=== PATIENT | female | born 1935 | race Caucasian/White ===

== ENCOUNTER 2016-05-06 21:28 | Emergency (ER) | payer MEDICARE, BC, OTHER ==
[2016-05-06] MEDS ORDERED: METOCLOPRAMIDE INJ 10MG/2ML VIAL (J2765) As Ordered ONE (22:38)
[2016-05-06 22:41] LABS: MEAN CORPUSCULAR HEMOGLOBIN 28.9 pg (27.0-33.0); MEAN CORPUSCULAR HGB CONC 34.4 g/dl (32.0-36.5); RED CELL DISTRIBUTION WIDTH 12.3 % (11.5-14.5); WHITE BLOOD COUNT 5.5 K/mm3 (4.0-10.0)
[2016-05-06 22:57] LABS: ALBUMIN 3.4 GM/DL (3.2-5.2); ALBUMIN/GLOBULIN RATIO 1.06 (1.00-1.93); ALKALINE PHOSPHATASE 88 U/L (45-117); ALT/SGPT 14 U/L (12-78); ANION GAP 11 MEQ/L (8-16); AST/SGOT 17 U/L (15-37); BILIRUBIN,DIRECT 0.1 MG/DL (0.0-0.2); BILIRUBIN,TOTAL 0.5 MG/DL (0.2-1.0); BLOOD UREA NITROGEN 9 MG/DL (7-18); CALCIUM LEVEL 8.9 MG/DL (8.8-10.2); CARBON DIOXIDE LEVEL 27 MEQ/L (21-32); CHLORIDE LEVEL 88 MEQ/L (98-107); CREATININE FOR GFR 0.75 MG/DL (0.55-1.02); GLOMERULAR FILTRATION RATE > 60.0 (>32); GLUCOSE, FASTING 101 MG/DL (83-110); POTASSIUM SERUM 3.7 MEQ/L (3.5-5.1); SODIUM LEVEL 126 MEQ/L (136-145); TOTAL PROTEIN 6.6 GM/DL (6.4-8.2)
[2016-05-06] MEDS ORDERED: MOXIFLOXACIN 400 MG TAB As Ordered ONE (23:39)
[2016-05-06] MEDS ORDERED: BENZONATATE 100 MG CAP As Ordered ONE (23:40)
--- NOTE | 2016-05-07 00:31 | EDDOCDS ---
Nurse's Notes [facility] Name: Wilma Waters Age: 80 yrs Sex: Female : 1935 Arrival Date: 05/06/2016 Time: 21:28 Bed 7 Private MD: Akiko Paris Diagnosis: Bronchitis, not specified as acute or chronic;Hypo-osmolality and hyponatremia Presentation: 05/06 21:38 Presenting complaint: Patient states: has had diarrhea for less than a week - congested kcs cough and today vomiting. Mother states: s Urgent care this am and diagnosed with Bronchitis - started on Augmentin - has only had one dose - now can't keep fluids down. states: as seen at. Adult Sepsis Screening: The patient does not have new or worsening altered mentation. Patient has a respiratory rate of greater than or equal to 22 (1 point). Systolic blood pressure is greater than 100. Patient has a qSOFA score of 0- Negative Sepsis Screen. Patient has cough and/or SOB- Positive Sepsis Screen. Suicide/Homicide risk assessment- the patient denies having any suicidal and/or homicidal ideations and does not present with any other emotional, behavioral or mental health complaints. Status: Patient is not a staff services manager or dependent. Transition of care: patient was not received from another setting of care. 21:38 Acuity: BHUPINDER Level 3 kcs 21:38 Method Of Arrival: Walkin/Carried/Asstd kcs Triage Assessment: 21:46 General: Appears ill, well developed, well nourished, well groomed, Behavior is kcs cooperative, pleasant. Pain: Denies pain. The patient is triaged at the bedside. See Assessment in Nurses Notes section of ED record. Neurological: Level of Consciousness is awake, alert. Respiratory: Airway is patent Respiratory effort is even, unlabored, Respiratory pattern is regular, symmetrical. Derm: Skin is intact, is fragile, Skin is dry, Skin is normal. Historical: - Allergies: No known drug Allergies; - Home Meds: 1. Augmentin 875-125 mg Oral tab 1 tab every 12 hours 2. Zofran (as hydrochloride) 4 mg oral tab every 8 hours took 2 at 1900 3. lisinopril 10 mg Oral tab 1 tab once daily 4. ibuprofen 600 mg Oral tab 1 tab every 6 hours this am 5. Vytorin 10-20 10-20 mg oral tab 1 tab once daily 6. Advair Diskus 250-50 mcg/dose Inhl dsdv 1 puff 2 times per day 7. Albuterol Inhl 2 puffs every 4 hours 8. aspirin 81 mg Oral tab 1 tab once daily 9. Vitamin D Oral 5000 unit daily 10. calcium 600 plus Vitamin D 400 daily - PMHx: Hypertension; Hypercholesterolemia; Diverticulitis; Osteoporosis; - PSHx: Cataract Surgery- Bilateral; Hysterectomy; Cholecystectomy; - Social history: Smoking status: Patient states was never smoker of tobacco. No barriers to communication noted, The patient speaks fluent Bahamian. - Family history: Not pertinent. - : The pt / caregiver states he / she is not on anticoagulants. Home medication list is obtained from the patient. - Exposure Risk Screening:: None identified. Screenin:48 Screening information is obtained from the patient. Fall risk: At risk due to prior kcs history of falls, The following interventions are performed due to a positive Fall Risk Screen: Fall Risk is added to Special Handling on the patient Summary Screen. A Fall Risk Bracelet was applied to the patient. Side Rails are placed in the up position. A Call Sanchez is given with instruction to call for help when getting out of bed. Fall Alert bracelet is placed on the patient. Assistance ADL's: requires no assistance with activities of daily living. Abuse/DV Screen: The patient / caregiver reports he/she is: not in a situation that causes fear, pain or injury. Nutritional screening: No deficits noted. Advance Directives: Currently, there is a health care proxy, daughter - Dayanara Oro. There is an active DNR order but there is no copy available at this time. home support is adequate. Assessment: 22:20 General: Appears in no apparent distress, comfortable, Behavior is appropriate for age, ttb cooperative, pleasant. Pain: Denies pain. Neurological: Level of Consciousness is awake, alert, Oriented to person, place, time, Moves all extremities. Speech is normal, Facial symmetry appears normal. Cardiovascular: Heart tones S1 S2 present Chest pain is denied. Respiratory: Airway is patent Respiratory effort is even, unlabored, Respiratory pattern is regular, symmetrical, Breath sounds with rhonchi expiratory in left posterior lower lobe, right posterior middle lobe and right posterior lower lobe Reports cough that is non-productive, the patient has mild shortness of breath. GI: Abdomen is non- distended Bowel sounds present X 4 quads. Abd is soft X 4 quads Reports diarrhea, nausea, vomiting. Derm: No deficits noted. Skin is normal. Injury Description: No known injury. 22:43 Reassessment: Patient appears in no apparent distress at this time. pt continues to ttb rest on stretcher. Labs sent per orders. Family at bedside. NAD noted. IVF's infusing. Report given to next RNYasmine to continue care at this time.. 23:35 General: Appears in no apparent distress, comfortable, Behavior is appropriate for age, kc3 cooperative. Pain: Denies pain. Neurological: Level of Consciousness is awake, alert, Oriented to person, place, time. Respiratory: Respiratory effort is even, unlabored. Derm: Skin is pink, warm & dry. 05/07 00:28 General: Appears in no apparent distress, comfortable, Behavior is appropriate for age, kc3 cooperative. Pain: Denies pain. Neurological: Level of Consciousness is awake, alert, Oriented to person, place, time. Respiratory: Respiratory effort is even, unlabored. Derm: Skin is pink, warm & dry. Vital Signs: 05/06 21:30 BP 203 / 80; Pulse 63; Resp 18; Temp 98.4(O); Pulse Ox 98% on R/A; Weight 74.84 kg (R); elp Height 4 ft. 11 in. (149.86 cm) (R); 23:20 BP 188 / 77; Pulse 63; Resp 20; Pulse Ox 96% on R/A; Pain 0/10; kc3 05/07 00:28 BP 196 / 87; Pulse 70; Resp 20; Temp 98.7(O); Pulse Ox 96% on R/A; Pain 0/10; kc3 05/06 21:30 Body Mass Index 33.33 (74.84 kg, 149.86 cm) elp 00:28 Provider aware of BP at discharge and approved for discharge. Pt to take BP medication kc3 at home. Vitals: 05/06 21:30 Log In Time: May 06, 2016 at 21:28. [facility] ED Course: 21:30 Patient visited by Cherry Rice PCA. elp 21:30 Akiko Paris is Private Physician. elp 21:30 Patient moved to Waiting elp 21:32 Patient visited by Cherry Riec PCA. elp 21:32 Patient moved to Pre RCE elp 21:32 Patient moved to 7 rs3 21:40 Triage Initiated kcs 22:20 The patient / caregiver is instructed regarding the plan of care and ED course. ttb Accompanied by Family Member, Patient has correct armband on for positive identification. Placed in gown. Bed in low position. Call light in reach. 22:20 Inserted peripheral IV: 20gauge IV in left antecubital area and blood collected. ttb Patient tolerated the procedure well. Labs drawn. (by ED staff). 22:22 [facility] ke 22:22 Patient visited by Negrito Apple FNP. ke 22:22 Patient visited by Negrito Apple FNP. ke 22:22 Patient visited by Calista Brush RN. ttb 22:36 BMP Sent. sls1 22:36 CBC Sent. sls1 22:36 BNP Sent. sls1 22:36 Lipase Sent. sls1 22:36 Liver Profile Sent. sls1 22:39 [facility] Payment Agreement was scanned into [employer] and attached to record. ks16 22:44 Patient visited by Calista Brush, NICCI. ttb 23:03 Patient moved to Radiology kenneth 23:04 Patient moved to 7 kenneth 23:26 Patient visited by Negrito Apple FNP. ke 23:39 Akiko Paris is Referral Physician. ke 05/07 00:29 Discontinued IV lock intact, bleeding controlled, pressure dressing applied, No kc3 redness/swelling at site. No procedures done that require assistance. Administered Medications: 05/06 22:30 Drug: NS 0.9% 1000 ml [sodium chloride 0.9 % intravenous solution] Route: IV; Rate: ttb bolus; Site: left antecubital; 22:40 Drug: Albuterol 2.5 mg [albuterol sulfate 2.5 mg/0.5 mL solution for nebulization (0.5 rs5 mL)] Route: Nebulizer; 22:40 Drug: Albuterol-Ipratropium 3 ml [ipratropium-albuterol 0.5 mg-3 mg(2.5 mg base)/3 mL rs5 nebulization soln (3 mL)] Route: Inhalation; 22:43 Drug: Metoclopramide 10 mg [metoclopramide 5 mg/mL injection solution] Route: IV; Rate: ttb 40 mg/hr; Infused Over: 15 mins; Site: left antecubital; Delivery: Syringe pump; 23:44 Drug: Moxifloxacin 400 mg [moxifloxacin 400 mg tablet (1 tabs)] Route: PO; kc3 23:44 Drug: Tessalon 200 mg Route: PO; kc3 RT: 22:46 Initial Med Neb Given as ordered Patient was instructed and evaluated on procedure rs5 Patient tolerated procedure well without adverse effect. Respiratory: Airway is patent Respiratory effort is even, unlabored, Respiratory pattern is regular symmetrical, Breath sounds with crackles bilaterally. Breath sounds with rhonchi Reports cough that is productive. Order Results: Lab Order: CBC; SPEC'M 05/06/16 22:19 Test: WHITE BLOOD COUNT; Value: 5.5; Range: 4.0-10.0; Units: K/mm3; Status: F Test: RED BLOOD COUNT; Value: 4.47; Range: 4.00-5.40; Units: M/mm3; Status: F Test: HEMOGLOBIN; Value: 12.9; Range: 12.0-16.0; Units: g/dl; Status: F Test: HEMATOCRIT; Value: 37.5; Range: 36.0-47.0; Units: %; Status: F Test: MEAN CORPUSCULAR VOLUME; Value: 84.0; Range: 80.0-96.0; Units: fl; Status: F Test: MEAN CORPUSCULAR HEMOGLOBIN; Value: 28.9; Range: 27.0-33.0; Units: pg; Status: F Test: MEAN CORPUSCULAR HGB CONC; Value: 34.4; Range: 32.0-36.5; Units: g/dl; Status: F Test: RED CELL DISTRIBUTION WIDTH; Value: 12.3; Range: 11.5-14.5; Units: %; Status: F Test: PLATELET COUNT, AUTOMATED; Value: 222; Range: 150-450; Units: k/mm3; Status: F Lab Order: BMP; SPEC'M 05/06/16 22:19 Test: GLUCOSE, FASTING; Value: 101; Range: 83-110; Units: MG/DL; Status: F Test: BLOOD UREA NITROGEN; Value: 9; Range: 7-18; Units: MG/DL; Status: F Test: CREATININE FOR GFR; Value: 0.75; Range: 0.55-1.02; Units: MG/DL; Status: F Test: GLOMERULAR FILTRATION RATE; Value: > 60.0; Range: >32; Status: F Test: SODIUM LEVEL; Value: 126; Range: 136-145; Abnormal: Below low normal; Units: MEQ/L; Status: F Test: POTASSIUM SERUM; Value: 3.7; Range: 3.5-5.1; Units: MEQ/L; Status: F Test: CHLORIDE LEVEL; Value: 88; Range: 98-107; Abnormal: Below low normal; Units: MEQ/L; Status: F Test: CARBON DIOXIDE LEVEL; Value: 27; Range: 21-32; Units: MEQ/L; Status: F Test: ANION GAP; Value: 11; Range: 8-16; Units: MEQ/L; Status: F Test: CALCIUM LEVEL; Value: 8.9; Range: 8.8-10.2; Units: MG/DL; Status: F Test Note: ; Units are mL/min/1.73 m2 Chronic Kidney Disease Staging per NKF: Stage I & II GFR >=60 Normal to Mildly Decreased Stage III GFR 30-59 Moderately Decreased Stage IV GFR 15-29 Severely Decreased Stage V GFR <15 Very Little GFR Left ESRD GFR <15 on 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 FIELD 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 Lab Order: BNP; SPEC'M 05/06/16 22:05 Test: BRAIN NATRIURETIC PEPTIDE; Value: 230; Range: <100; Abnormal: Above high normal; Units: PG/ML; Status: F Lab Order: Lipase; SPEC'M 05/06/16 22:19 Test: LIPASE; Value: 102; Range: 73-393; Units: U/L; Status: F Lab Order: Liver Profile; SPEC'M 05/06/16 22:19 Test: AST/SGOT; Value: 17; Range: 15-37; Units: U/L; Status: F Test: ALT/SGPT; Value: 14; Range: 12-78; Units: U/L; Status: F Test: ALKALINE PHOSPHATASE; Value: 88; Range: 45-117; Units: U/L; Status: F Test: BILIRUBIN,TOTAL; Value: 0.5; Range: 0.2-1.0; Units: MG/DL; Status: F Test: BILIRUBIN,DIRECT; Value: 0.1; Range: 0.0-0.2; Units: MG/DL; Status: F Test: TOTAL PROTEIN; Value: 6.6; Range: 6.4-8.2; Units: GM/DL; Status: F Test: ALBUMIN; Value: 3.4; Range: 3.2-5.2; Units: GM/DL; Status: F Test: ALBUMIN/GLOBULIN RATIO; Value: 1.06; Range: 1.00-1.93; Status: F Outcome: 23:40 Discharge ordered by Provider. nuvia 01 00:29 Discharge Assessment: Patient awake, alert and oriented x 3. No cognitive and/or kc3 functional deficits noted. Patient verbalized understanding of disposition instructions. patient administered narcotics - no. The following High Risk Discharge criteria are identified: None. Discharged to home via wheelchair, with family. Condition: stable. Discharge instructions given to patient, Instructed on discharge instructions, follow up and referral plans. medication usage, Demonstrated understanding of instructions, medications, Pt was receptive of discharge instructions/ teaching. Prescriptions given X 2. No special radiology studies were completed. Property :Personal belongings accompany Pt. 00:30 Patient left the ED. kc3 Signatures: Elda Oro, RN RN Driss Wallace Karl, RESIDENTIAL TECH RESIDENTIAL TECH Belkis Davis RN RN rs3 Sandy Tobin RN RN sls1 Anthony Garcia,RT RT rs5 Calista Brush RN RN ttb Cherry Rice, ELECTRIC BRAIN WAVE EQUIPMENT MECHANIC ELECTRIC BRAIN WAVE EQUIPMENT MECHANIC elp Leticia Chacko RN RN kc3 Juliet Bond, Reg Reg ks16 Corrections: (The following items were deleted from the chart) 00:30 00:28 BP 196 / 87; Pulse 70bpm; Resp 20bpm; Pulse Ox 96% RA; Temp 98.7F Oral; Pain kc3 0/10; kc3 MTDD
--- NOTE | 2016-05-07 00:31 | EDDOCDS ---
Physician Documentation [facility] Name: Wilma Waters Age: 80 yrs Sex: Female : 1935 Arrival Date: 05/06/2016 Time: 21:28 Bed 7 Private MD: Akiko Paris Disposition: 05/06/16 23:40 Discharged to Home/Self Care. Impression: Bronchitis, not specified as acute or chronic, Hypo-osmolality and hyponatremia. - Condition is Stable. - Discharge Instructions: Acute Bronchitis, Hyponatremia. - Prescriptions for Moxifloxacin 400 mg Oral Tablet - take 1 tablet by ORAL route once daily; 5 tablet. benzonatate 200 mg Oral Capsule - take 1 capsule by ORAL route 3 times per day As needed; 30 capsule. - Medication Reconciliation, Local Pharmacy Hours form. - Follow up: Akiko Paris; When: 4 - 5 days; Reason: Recheck today's complaints, Continuance of care. - Problem is an ongoing problem. - Symptoms are unchanged. Historical: - Allergies: No known drug Allergies; - Home Meds: 1. Augmentin 875-125 mg Oral tab 1 tab every 12 hours 2. Zofran (as hydrochloride) 4 mg oral tab every 8 hours took 2 at 1900 3. lisinopril 10 mg Oral tab 1 tab once daily 4. ibuprofen 600 mg Oral tab 1 tab every 6 hours this am 5. Vytorin 10-20 10-20 mg oral tab 1 tab once daily 6. Advair Diskus 250-50 mcg/dose Inhl dsdv 1 puff 2 times per day 7. Albuterol Inhl 2 puffs every 4 hours 8. aspirin 81 mg Oral tab 1 tab once daily 9. Vitamin D Oral 5000 unit daily 10. calcium 600 plus Vitamin D 400 daily - PMHx: Hypertension; Hypercholesterolemia; Diverticulitis; Osteoporosis; - PSHx: Cataract Surgery- Bilateral; Hysterectomy; Cholecystectomy; - Social history: Smoking status: Patient states was never smoker of tobacco. No barriers to communication noted, The patient speaks fluent Azerbaijani. - Family history: Not pertinent. - : The pt / caregiver states he / she is not on anticoagulants. Home medication list is obtained from the patient. - Exposure Risk Screening:: None identified. Vital Signs: 05/06 21:30 BP 203 / 80; Pulse 63; Resp 18; Temp 98.4(O); Pulse Ox 98% on R/A; Weight 74.84 kg / elp 164.99 lbs (R); Height 4 ft. 11 in. (149.86 cm) (R); 23:20 BP 188 / 77; Pulse 63; Resp 20; Pulse Ox 96% on R/A; Pain 0/10; kc3 05/07 00:28 BP 196 / 87; Pulse 70; Resp 20; Temp 98.7(O); Pulse Ox 96% on R/A; Pain 0/10; kc3 05/06 21:30 Body Mass Index 33.33 (74.84 kg, 149.86 cm) elp 00:28 Provider aware of BP at discharge and approved for discharge. Pt to take BP medication kc3 at home. MDM: 05/06 22:31 IV Saline Lock ordered. ke 22:31 NS 0.9% 1000 ml IV at bolus once ordered. ke 22:31 Metoclopramide 10 mg IV at 40 mg/hr once over 15 mins ordered. ke 22:31 Albuterol 2.5 mg Nebulizer once ordered. ke 22:31 Albuterol-Ipratropium 3 ml Inhalation once ordered. ke 22:31 Call Respiratory ordered. ke 22:31 Call Respiratory complete. ar3 22:33 CBC Ordered. EDMS 22:33 BMP Ordered. EDMS 22:33 BNP Ordered. EDMS 22:33 Lipase Ordered. EDMS 22:33 Liver Profile Ordered. EDMS 22:33 Chest, 2 View (pa\E\lat) Ordered. EDMS 22:38 Financial registration complete. ks16 22:39 [facility] Payment Agreement was scanned into [employer] and attached to record. ks16 23:26 BMP Reviewed. ke 23:26 BNP Reviewed. ke 23:26 CBC Reviewed. ke 23:26 Lipase Reviewed. ke 23:26 Liver Profile Reviewed. ke 23:36 Moxifloxacin 400 mg PO once ordered. ke 23:36 Tessalon 200 mg PO once ordered. ke Administered Medications: 22:30 Drug: NS 0.9% 1000 ml [sodium chloride 0.9 % intravenous solution] Route: IV; Rate: ttb bolus; Site: left antecubital; 22:40 Drug: Albuterol 2.5 mg [albuterol sulfate 2.5 mg/0.5 mL solution for nebulization (0.5 rs5 mL)] Route: Nebulizer; 22:40 Drug: Albuterol-Ipratropium 3 ml [ipratropium-albuterol 0.5 mg-3 mg(2.5 mg base)/3 mL rs5 nebulization soln (3 mL)] Route: Inhalation; 22:43 Drug: Metoclopramide 10 mg [metoclopramide 5 mg/mL injection solution] Route: IV; Rate: ttb 40 mg/hr; Infused Over: 15 mins; Site: left antecubital; Delivery: Syringe pump; 23:44 Drug: Moxifloxacin 400 mg [moxifloxacin 400 mg tablet (1 tabs)] Route: PO; kc3 23:44 Drug: Tessalon 200 mg Route: PO; kc3 Signatures: Dispatcher [employer] EDElda Lee, RN RN kcs Negrito Apple, CHEMICAL RECLAMATION EQUIPMENT OPERATOR CHEMICAL RECLAMATION EQUIPMENT OPERATOR Latrice Menjivar, PUBLIC HEALTH SERVICE OFFICER PUBLIC HEALTH SERVICE OFFICER fady3 Calista Brush RN RN ttb Crane, Kelsi, RN RN kc3 Juliet Bond, Reg Reg ks16 Anthony Garcia RT rs5 The chart was reviewed and I authenticate all verbal orders and agree with the evaluation and treatment provided.Attachments: 22:39 [facility] Payment Agreement ks16 MTDD
--- NOTE | 2016-05-07 12:17 | REP ---
CHEST X-RAY: Two views. HISTORY: Cough. Comparison chest x-ray July 05, 2008. FINDINGS: The lungs are symmetrically aerated. Pleural angles are sharp. No infiltrate is seen. Heart size is normal. Pulmonary vasculature is not increased. No significant bony abnormality is noted. There are clips in the upper abdomen consistent with a previous cholecystectomy. IMPRESSION: No active disease. Signed by Gael Sharma MD 05/07/2016 12:18 P
--- NOTE | 2016-05-07 17:09 | EDDOCDS ---
Nurse's Notes [facility] Name: Wilma Waters Age: 80 yrs Sex: Female : 1935 Arrival Date: 05/06/2016 Time: 21:28 Bed 7 Private MD: Akiko Paris Diagnosis: Bronchitis, not specified as acute or chronic;Hypo-osmolality and hyponatremia Presentation: 05/06 21:38 Presenting complaint: Patient states: has had diarrhea for less than a week - congested kcs cough and today vomiting. Mother states: s Urgent care this am and diagnosed with Bronchitis - started on Augmentin - has only had one dose - now can't keep fluids down. states: as seen at. Adult Sepsis Screening: The patient does not have new or worsening altered mentation. Patient has a respiratory rate of greater than or equal to 22 (1 point). Systolic blood pressure is greater than 100. Patient has a qSOFA score of 0- Negative Sepsis Screen. Patient has cough and/or SOB- Positive Sepsis Screen. Suicide/Homicide risk assessment- the patient denies having any suicidal and/or homicidal ideations and does not present with any other emotional, behavioral or mental health complaints. 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 Transition of care: patient was not received from another setting of care. 21:38 Acuity: BHUPINDER Level 3 kcs 21:38 Method Of Arrival: Walkin/Carried/Asstd kcs Triage Assessment: 21:46 General: Appears ill, well developed, well nourished, well groomed, Behavior is kcs cooperative, pleasant. Pain: Denies pain. The patient is triaged at the bedside. See Assessment in Nurses Notes section of ED record. Neurological: Level of Consciousness is awake, alert. Respiratory: Airway is patent Respiratory effort is even, unlabored, Respiratory pattern is regular, symmetrical. Derm: Skin is intact, is fragile, Skin is dry, Skin is normal. Historical: - Allergies: No known drug Allergies; - Home Meds: 1. Augmentin 875-125 mg Oral tab 1 tab every 12 hours 2. Zofran (as hydrochloride) 4 mg oral tab every 8 hours took 2 at 1900 3. lisinopril 10 mg Oral tab 1 tab once daily 4. ibuprofen 600 mg Oral tab 1 tab every 6 hours this am 5. Vytorin 10-20 10-20 mg oral tab 1 tab once daily 6. Advair Diskus 250-50 mcg/dose Inhl dsdv 1 puff 2 times per day 7. Albuterol Inhl 2 puffs every 4 hours 8. aspirin 81 mg Oral tab 1 tab once daily 9. Vitamin D Oral 5000 unit daily 10. calcium 600 plus Vitamin D 400 daily - PMHx: Hypertension; Hypercholesterolemia; Diverticulitis; Osteoporosis; - PSHx: Cataract Surgery- Bilateral; Hysterectomy; Cholecystectomy; - Social history: Smoking status: Patient states was never smoker of tobacco. No barriers to communication noted, The patient speaks fluent Kyrgyz. - Family history: Not pertinent. - : The pt / caregiver states he / she is not on anticoagulants. Home medication list is obtained from the patient. - Exposure Risk Screening:: None identified. Screenin:48 Screening information is obtained from the patient. Fall risk: At risk due to prior kcs history of falls, The following interventions are performed due to a positive Fall Risk Screen: Fall Risk is added to Special Handling on the patient Summary Screen. A Fall Risk Bracelet was applied to the patient. Side Rails are placed in the up position. A Call Sanchez is given with instruction to call for help when getting out of bed. Fall Alert bracelet is placed on the patient. Assistance ADL's: requires no assistance with activities of daily living. Abuse/DV Screen: The patient / caregiver reports he/she is: not in a situation that causes fear, pain or injury. Nutritional screening: No deficits noted. Advance Directives: Currently, there is a health care proxy, daughter - Dayanara Oro. There is an active DNR order but there is no copy available at this time. home support is adequate. Assessment: 22:20 General: Appears in no apparent distress, comfortable, Behavior is appropriate for age, ttb cooperative, pleasant. Pain: Denies pain. Neurological: Level of Consciousness is awake, alert, Oriented to person, place, time, Moves all extremities. Speech is normal, Facial symmetry appears normal. Cardiovascular: Heart tones S1 S2 present Chest pain is denied. Respiratory: Airway is patent Respiratory effort is even, unlabored, Respiratory pattern is regular, symmetrical, Breath sounds with rhonchi expiratory in left posterior lower lobe, right posterior middle lobe and right posterior lower lobe Reports cough that is non-productive, the patient has mild shortness of breath. GI: Abdomen is non- distended Bowel sounds present X 4 quads. Abd is soft X 4 quads Reports diarrhea, nausea, vomiting. Derm: No deficits noted. Skin is normal. Injury Description: No known injury. 22:43 Reassessment: Patient appears in no apparent distress at this time. pt continues to ttb rest on stretcher. Labs sent per orders. Family at bedside. NAD noted. IVF's infusing. Report given to next RNYasmine to continue care at this time.. 23:35 General: Appears in no apparent distress, comfortable, Behavior is appropriate for age, kc3 cooperative. Pain: Denies pain. Neurological: Level of Consciousness is awake, alert, Oriented to person, place, time. Respiratory: Respiratory effort is even, unlabored. Derm: Skin is pink, warm & dry. 05/07 00:28 General: Appears in no apparent distress, comfortable, Behavior is appropriate for age, kc3 cooperative. Pain: Denies pain. Neurological: Level of Consciousness is awake, alert, Oriented to person, place, time. Respiratory: Respiratory effort is even, unlabored. Derm: Skin is pink, warm & dry. Vital Signs: 05/06 21:30 BP 203 / 80; Pulse 63; Resp 18; Temp 98.4(O); Pulse Ox 98% on R/A; Weight 74.84 kg (R); elp Height 4 ft. 11 in. (149.86 cm) (R); 23:20 BP 188 / 77; Pulse 63; Resp 20; Pulse Ox 96% on R/A; Pain 0/10; kc3 05/07 00:28 BP 196 / 87; Pulse 70; Resp 20; Temp 98.7(O); Pulse Ox 96% on R/A; Pain 0/10; kc3 05/06 21:30 Body Mass Index 33.33 (74.84 kg, 149.86 cm) elp 00:28 Provider aware of BP at discharge and approved for discharge. Pt to take BP medication kc3 at home. Vitals: 05/06 21:30 Log In Time: May 06, 2016 at 21:28[facility] ED Course: 21:30 Patient visited by Cherry Rice PCA. elp 21:30 Akiko Paris is Private Physician. elp 21:30 Patient moved to Waiting elp 21:32 Patient visited by Cherry Rice PCA. elp 21:32 Patient moved to Pre RCE elp 21:32 Patient moved to 7 rs3 21:40 Triage Initiated kcs 22:20 The patient / caregiver is instructed regarding the plan of care and ED course. ttb Accompanied by Family Member, Patient has correct armband on for positive identification. Placed in gown. Bed in low position. Call light in reach. 22:20 Inserted peripheral IV: 20gauge IV in left antecubital area and blood collected. ttb Patient tolerated the procedure well. Labs drawn. (by ED staff). 22:22 [facility] ke 22:22 Patient visited by Negrito Apple FNP. nuvia 22:22 Patient visited by Negrito Apple FNP. ke 22:22 Patient visited by Calista Brush RN. ttb 22:36 BMP Sent. sls1 22:36 CBC Sent. sls1 22:36 BNP Sent. sls1 22:36 Lipase Sent. sls1 22:36 Liver Profile Sent. sls1 22:39 [facility] [place] [facility] Payment Agreement was scanned into [email or web address] and attached to record. ks16 22:44 Patient visited by Calista Brush, NICCI. ttb 23:03 Patient moved to Radiology kenneth 23:04 Patient moved to 7 kenneth 23:26 Patient visited by Negrito Apple FNP. ke 23:39 Akiko Paris is Referral Physician. ke 05/07 00:29 Discontinued IV lock intact, bleeding controlled, pressure dressing applied, No kc3 redness/swelling at site. No procedures done that require assistance. 10:48 T-Sheet-- Draft Copy was scanned into [email or web address] and attached to record. gb 12:27 Chest, 2 View (pa\E\lat) Returned. EDMS 17:07 Mary Sierra, NICCI is Primary Nurse. ke Administered Medications: 05/06 22:30 Drug: NS 0.9% 1000 ml [sodium chloride 0.9 % intravenous solution] Route: IV; Rate: ttb bolus; Site: left antecubital; 22:40 Drug: Albuterol 2.5 mg [albuterol sulfate 2.5 mg/0.5 mL solution for nebulization (0.5 rs5 mL)] Route: Nebulizer; 22:40 Drug: Albuterol-Ipratropium 3 ml [ipratropium-albuterol 0.5 mg-3 mg(2.5 mg base)/3 mL rs5 nebulization soln (3 mL)] Route: Inhalation; 22:43 Drug: Metoclopramide 10 mg [metoclopramide 5 mg/mL injection solution] Route: IV; Rate: ttb 40 mg/hr; Infused Over: 15 mins; Site: left antecubital; Delivery: Syringe pump; 23:44 Drug: Moxifloxacin 400 mg [moxifloxacin 400 mg tablet (1 tabs)] Route: PO; kc3 23:44 Drug: Tessalon 200 mg Route: PO; kc3 RT: 22:46 Initial Med Neb Given as ordered Patient was instructed and evaluated on procedure rs5 Patient tolerated procedure well without adverse effect. Respiratory: Airway is patent Respiratory effort is even, unlabored, Respiratory pattern is regular symmetrical, Breath sounds with crackles bilaterally. Breath sounds with rhonchi Reports cough that is productive. Order Results: Lab Order: CBC; SPEC'M 05/06/16 22:19 Test: WHITE BLOOD COUNT; Value: 5.5; Range: 4.0-10.0; Units: K/mm3; Status: F Test: RED BLOOD COUNT; Value: 4.47; Range: 4.00-5.40; Units: M/mm3; Status: F Test: HEMOGLOBIN; Value: 12.9; Range: 12.0-16.0; Units: g/dl; Status: F Test: HEMATOCRIT; Value: 37.5; Range: 36.0-47.0; Units: %; Status: F Test: MEAN CORPUSCULAR VOLUME; Value: 84.0; Range: 80.0-96.0; Units: fl; Status: F Test: MEAN CORPUSCULAR HEMOGLOBIN; Value: 28.9; Range: 27.0-33.0; Units: pg; Status: F Test: MEAN CORPUSCULAR HGB CONC; Value: 34.4; Range: 32.0-36.5; Units: g/dl; Status: F Test: RED CELL DISTRIBUTION WIDTH; Value: 12.3; Range: 11.5-14.5; Units: %; Status: F Test: PLATELET COUNT, AUTOMATED; Value: 222; Range: 150-450; Units: k/mm3; Status: F Lab Order: BMP; SPEC'05/06/16 22:19 Test: GLUCOSE, FASTING; Value: 101; Range: 83-110; Units: MG/DL; Status: F Test: BLOOD UREA NITROGEN; Value: 9; Range: 7-18; Units: MG/DL; Status: F Test: CREATININE FOR GFR; Value: 0.75; Range: 0.55-1.02; Units: MG/DL; Status: F Test: GLOMERULAR FILTRATION RATE; Value: > 60.0; Range: >32; Status: F Test: SODIUM LEVEL; Value: 126; Range: 136-145; Abnormal: Below low normal; Units: MEQ/L; Status: F Test: POTASSIUM SERUM; Value: 3.7; Range: 3.5-5.1; Units: MEQ/L; Status: F Test: CHLORIDE LEVEL; Value: 88; Range: 98-107; Abnormal: Below low normal; Units: MEQ/L; Status: F Test: CARBON DIOXIDE LEVEL; Value: 27; Range: 21-32; Units: MEQ/L; Status: F Test: ANION GAP; Value: 11; Range: 8-16; Units: MEQ/L; Status: F Test: CALCIUM LEVEL; Value: 8.9; Range: 8.8-10.2; Units: MG/DL; Status: F Test Note: ; Units are mL/min/1.73 m2 Chronic Kidney Disease Staging per NKF: Stage I & II GFR >=60 Normal to Mildly Decreased Stage III GFR 30-59 Moderately Decreased Stage IV GFR 15-29 Severely Decreased Stage V GFR <15 Very Little GFR Left ESRD GFR <15 on SAFETY PIN ASSEMBLING MACHINE OPERATOR Lab Order: BNP; SPEC'05/06/16 22:05 Test: BRAIN NATRIURETIC PEPTIDE; Value: 230; Range: <100; Abnormal: Above high normal; Units: PG/ML; Status: F Lab Order: Lipase; SPEC05/06/16 22:19 Test: LIPASE; Value: 102; Range: 73-393; Units: U/L; Status: F Lab Order: Liver Profile; SPEC'05/06/16 22:19 Test: AST/SGOT; Value: 17; Range: 15-37; Units: U/L; Status: F Test: ALT/SGPT; Value: 14; Range: 12-78; Units: U/L; Status: F Test: ALKALINE PHOSPHATASE; Value: 88; Range: 45-117; Units: U/L; Status: F Test: BILIRUBIN,TOTAL; Value: 0.5; Range: 0.2-1.0; Units: MG/DL; Status: F Test: BILIRUBIN,DIRECT; Value: 0.1; Range: 0.0-0.2; Units: MG/DL; Status: F Test: TOTAL PROTEIN; Value: 6.6; Range: 6.4-8.2; Units: GM/DL; Status: F Test: ALBUMIN; Value: 3.4; Range: 3.2-5.2; Units: GM/DL; Status: F Test: ALBUMIN/GLOBULIN RATIO; Value: 1.06; Range: 1.00-1.93; Status: F Radiology Order: Chest, 2 View (pa\E\lat) Test: Chest, 2 View (pa\E\lat) REASON FOR EXAMINATION: Cough; CHEST X-RAY: Two views.; ; HISTORY: Cough.; ; Comparison chest x-ray July 05, 2008.; ; FINDINGS: The lungs are symmetrically aerated. Pleural angles are sharp. No; infiltrate is seen. Heart size is normal. Pulmonary vasculature is not; increased. No significant bony abnormality is noted. There are clips in the; upper abdomen consistent with a previous cholecystectomy.; ; IMPRESSION: No active disease.; ; ; Signed by; Gael Sharma MD 05/07/2016 12:18 P; Outcome: 23:40 Discharge ordered by Provider. nuvia 05/07 00:29 Discharge Assessment: Patient awake, alert and oriented x 3. No cognitive and/or kc3 functional deficits noted. Patient verbalized understanding of disposition instructions. patient administered narcotics - no. The following High Risk Discharge criteria are identified: None. Discharged to home via wheelchair, with family. Condition: stable. Discharge instructions given to patient, Instructed on discharge instructions, follow up and referral plans. medication usage, Demonstrated understanding of instructions, medications, Pt was receptive of discharge instructions/ teaching. Prescriptions given X 2. No special radiology studies were completed. Property :Personal belongings accompany Pt. 00:30 Patient left the ED. kc3 17:08 Patient left the ED. nuvia Signatures: Dispatcher [employer] Elda Song, RN RN kcs Delphine, Driss kenneth Francheska Obrien, Reg Reg gb Negrito Apple, TOP TILE DECORATOR TOP TILE DECORATOR Belkis Davis RN RN rs3 Sandy Tobin RN RN sls1 Anthony Garcia,RT RT rs5 Calista Brush, NICCI RN ttb Cherry Rice, COUNTY AGENT COUNTY AGENT elp Leticia Chacko RN RN kc3 Juliet Bond, Reg Reg ks16 Corrections: (The following items were deleted from the chart) 00:30 00:28 BP 196 / 87; Pulse 70bpm; Resp 20bpm; Pulse Ox 96% RA; Temp 98.7F Oral; Pain kc3 0/10; kc3 MTDD
--- NOTE | 2016-05-07 17:09 | EDDOCDS ---
Physician Documentation [facility] Name: Wilma Waters Age: 80 yrs Sex: Female : 1935 Arrival Date: 05/06/2016 Time: 21:28 Bed 7 Private MD: Akiko Paris Disposition: 05/06/16 23:40 Discharged to Home/Self Care. Impression: Bronchitis, not specified as acute or chronic, Hypo-osmolality and hyponatremia. - Condition is Stable. - Discharge Instructions: Acute Bronchitis, Hyponatremia. - Prescriptions for Moxifloxacin 400 mg Oral Tablet - take 1 tablet by ORAL route once daily; 5 tablet. benzonatate 200 mg Oral Capsule - take 1 capsule by ORAL route 3 times per day As needed; 30 capsule. Phenergan 25 mg Rectal Suppository - insert 1 suppository by RECTAL route every 6 hours As needed; 12 suppository. - Medication Reconciliation, Local Pharmacy Hours form. - Follow up: Akiko Paris; When: 4 - 5 days; Reason: Recheck today's complaints, Continuance of care. - Problem is an ongoing problem. - Symptoms are unchanged. Historical: - Allergies: No known drug Allergies; - Home Meds: 1. Augmentin 875-125 mg Oral tab 1 tab every 12 hours 2. Zofran (as hydrochloride) 4 mg oral tab every 8 hours took 2 at 1900 3. lisinopril 10 mg Oral tab 1 tab once daily 4. ibuprofen 600 mg Oral tab 1 tab every 6 hours this am 5. Vytorin 10-20 10-20 mg oral tab 1 tab once daily 6. Advair Diskus 250-50 mcg/dose Inhl dsdv 1 puff 2 times per day 7. Albuterol Inhl 2 puffs every 4 hours 8. aspirin 81 mg Oral tab 1 tab once daily 9. Vitamin D Oral 5000 unit daily 10. calcium 600 plus Vitamin D 400 daily - PMHx: Hypertension; Hypercholesterolemia; Diverticulitis; Osteoporosis; - PSHx: Cataract Surgery- Bilateral; Hysterectomy; Cholecystectomy; - Social history: Smoking status: Patient states was never smoker of tobacco. No barriers to communication noted, The patient speaks fluent Irish. - Family history: Not pertinent. - : The pt / caregiver states he / she is not on anticoagulants. Home medication list is obtained from the patient. - Exposure Risk Screening:: None identified. Vital Signs: 05/06 21:30 BP 203 / 80; Pulse 63; Resp 18; Temp 98.4(O); Pulse Ox 98% on R/A; Weight 74.84 kg / elp 164.99 lbs (R); Height 4 ft. 11 in. (149.86 cm) (R); 23:20 BP 188 / 77; Pulse 63; Resp 20; Pulse Ox 96% on R/A; Pain 0/10; kc3 05/07 00:28 BP 196 / 87; Pulse 70; Resp 20; Temp 98.7(O); Pulse Ox 96% on R/A; Pain 0/10; kc3 05/06 21:30 Body Mass Index 33.33 (74.84 kg, 149.86 cm) elp 00:28 Provider aware of BP at discharge and approved for discharge. Pt to take BP medication kc3 at home. MDM: 05/06 22:31 IV Saline Lock ordered. ke 22:31 NS 0.9% 1000 ml IV at bolus once ordered. ke 22:31 Metoclopramide 10 mg IV at 40 mg/hr once over 15 mins ordered. ke 22:31 Albuterol 2.5 mg Nebulizer once ordered. ke 22:31 Albuterol-Ipratropium 3 ml Inhalation once ordered. ke 22:31 Call Respiratory ordered. ke 22:31 Call Respiratory complete. ar3 22:33 CBC Ordered. EDMS 22:33 BMP Ordered. EDMS 22:33 BNP Ordered. EDMS 22:33 Lipase Ordered. EDMS 22:33 Liver Profile Ordered. EDMS 22:33 Chest, 2 View (pa\E\lat) Ordered. EDMS 22:38 Financial registration complete. ks16 22:39 [facility] Payment Agreement was scanned into [employer] and attached to record. ks16 23:26 BMP Reviewed. ke 23:26 BNP Reviewed. ke 23:26 CBC Reviewed. ke 23:26 Lipase Reviewed. ke 23:26 Liver Profile Reviewed. ke 23:36 Moxifloxacin 400 mg PO once ordered. ke 23:36 Tessalon 200 mg PO once ordered. ke 05/07 10:48 T-Sheet-- Draft Copy was scanned into [employer] and attached to record. gb 17:06 ED course: pt with continued c/o nausea. will attempt phenergan pr.does not want admit..ke Administered Medications: 05/06 22:30 Drug: NS 0.9% 1000 ml [sodium chloride 0.9 % intravenous solution] Route: IV; Rate: ttb bolus; Site: left antecubital; 22:40 Drug: Albuterol 2.5 mg [albuterol sulfate 2.5 mg/0.5 mL solution for nebulization (0.5 rs5 mL)] Route: Nebulizer; 22:40 Drug: Albuterol-Ipratropium 3 ml [ipratropium-albuterol 0.5 mg-3 mg(2.5 mg base)/3 mL rs5 nebulization soln (3 mL)] Route: Inhalation; 22:43 Drug: Metoclopramide 10 mg [metoclopramide 5 mg/mL injection solution] Route: IV; Rate: ttb 40 mg/hr; Infused Over: 15 mins; Site: left antecubital; Delivery: Syringe pump; 23:44 Drug: Moxifloxacin 400 mg [moxifloxacin 400 mg tablet (1 tabs)] Route: PO; kc3 23:44 Drug: Tessalon 200 mg Route: PO; kc3 Signatures: Dispatcher [employer] EDElda Lee, RN RN kcs Francheska Obrien, Reg Reg gb Negrito Apple, EDGE BRUSHER EDGE BRUSHER Latrice Menjivar, POLICE AIDE POLICE AIDE ar3 Calista Brush RN RN ttLeticia Montes RN RN kc3 Juliet Bond, Reg Reg ks16 Anthony Garcia RT rs5 The chart was reviewed and I authenticate all verbal orders and agree with the evaluation and treatment provided.Attachments: 22:39 [facility] Payment Agreement ks16 05/07 10:48 T-Sheet-- Draft Copy gb MTDD
--- NOTE | 2016-05-09 18:10 | EDDOCDS ---
Physician Documentation [facility] Name: Wilma Waters Age: 80 yrs Sex: Female : 1935 Arrival Date: 05/06/2016 Time: 21:28 Bed 7 Private MD: Akiko Paris Disposition: 05/06/16 23:40 Discharged to Home/Self Care. Impression: Bronchitis, not specified as acute or chronic, Hypo-osmolality and hyponatremia. - Condition is Stable. - Discharge Instructions: Acute Bronchitis, Hyponatremia. - Prescriptions for Moxifloxacin 400 mg Oral Tablet - take 1 tablet by ORAL route once daily; 5 tablet. benzonatate 200 mg Oral Capsule - take 1 capsule by ORAL route 3 times per day As needed; 30 capsule. Phenergan 25 mg Rectal Suppository - insert 1 suppository by RECTAL route every 6 hours As needed; 12 suppository. - Medication Reconciliation, Local Pharmacy Hours form. - Follow up: Akiko Paris; When: 4 - 5 days; Reason: Recheck today's complaints, Continuance of care. - Problem is an ongoing problem. - Symptoms are unchanged. Historical: - Allergies: No known drug Allergies; - Home Meds: 1. Augmentin 875-125 mg Oral tab 1 tab every 12 hours 2. Zofran (as hydrochloride) 4 mg oral tab every 8 hours took 2 at 1900 3. lisinopril 10 mg Oral tab 1 tab once daily 4. ibuprofen 600 mg Oral tab 1 tab every 6 hours this am 5. Vytorin 10-20 10-20 mg oral tab 1 tab once daily 6. Advair Diskus 250-50 mcg/dose Inhl dsdv 1 puff 2 times per day 7. Albuterol Inhl 2 puffs every 4 hours 8. aspirin 81 mg Oral tab 1 tab once daily 9. Vitamin D Oral 5000 unit daily 10. calcium 600 plus Vitamin D 400 daily - PMHx: Hypertension; Hypercholesterolemia; Diverticulitis; Osteoporosis; - PSHx: Cataract Surgery- Bilateral; Hysterectomy; Cholecystectomy; - Social history: Smoking status: Patient states was never smoker of tobacco. No barriers to communication noted, The patient speaks fluent Irish. - Family history: Not pertinent. - : The pt / caregiver states he / she is not on anticoagulants. Home medication list is obtained from the patient. - Exposure Risk Screening:: None identified. Vital Signs: 05/06 21:30 BP 203 / 80; Pulse 63; Resp 18; Temp 98.4(O); Pulse Ox 98% on R/A; Weight 74.84 kg / elp 164.99 lbs (R); Height 4 ft. 11 in. (149.86 cm) (R); 23:20 BP 188 / 77; Pulse 63; Resp 20; Pulse Ox 96% on R/A; Pain 0/10; kc3 05/07 00:28 BP 196 / 87; Pulse 70; Resp 20; Temp 98.7(O); Pulse Ox 96% on R/A; Pain 0/10; kc3 05/06 21:30 Body Mass Index 33.33 (74.84 kg, 149.86 cm) elp 00:28 Provider aware of BP at discharge and approved for discharge. Pt to take BP medication kc3 at home. MDM: 05/06 22:31 IV Saline Lock ordered. ke 22:31 NS 0.9% 1000 ml IV at bolus once ordered. ke 22:31 Metoclopramide 10 mg IV at 40 mg/hr once over 15 mins ordered. ke 22:31 Albuterol 2.5 mg Nebulizer once ordered. ke 22:31 Albuterol-Ipratropium 3 ml Inhalation once ordered. ke 22:31 Call Respiratory ordered. ke 22:31 Call Respiratory complete. ar3 22:33 CBC Ordered. EDMS 22:33 BMP Ordered. EDMS 22:33 BNP Ordered. EDMS 22:33 Lipase Ordered. EDMS 22:33 Liver Profile Ordered. EDMS 22:33 Chest, 2 View (pa\E\lat) Ordered. EDMS 22:38 Financial registration complete. [email or web address] 22:39 [facility] Payment Agreement was scanned into [employer] and attached to record. ks16 23:26 BMP Reviewed. ke 23:26 BNP Reviewed. ke 23:26 CBC Reviewed. ke 23:26 Lipase Reviewed. ke 23:26 Liver Profile Reviewed. ke 23:36 Moxifloxacin 400 mg PO once ordered. ke 23:36 Tessalon 200 mg PO once ordered. ke 05/07 10:48 T-Sheet-- Draft Copy was scanned into [employer] and attached to record. gb 17:06 ED course: pt with continued c/o nausea. will attempt phenergan pr.does not want admit..ke Administered Medications: 05/06 22:30 Drug: NS 0.9% 1000 ml [sodium chloride 0.9 % intravenous solution] Route: IV; Rate: ttb bolus; Site: left antecubital; 22:40 Drug: Albuterol 2.5 mg [albuterol sulfate 2.5 mg/0.5 mL solution for nebulization (0.5 rs5 mL)] Route: Nebulizer; 22:40 Drug: Albuterol-Ipratropium 3 ml [ipratropium-albuterol 0.5 mg-3 mg(2.5 mg base)/3 mL rs5 nebulization soln (3 mL)] Route: Inhalation; 22:43 Drug: Metoclopramide 10 mg [metoclopramide 5 mg/mL injection solution] Route: IV; Rate: ttb 40 mg/hr; Infused Over: 15 mins; Site: left antecubital; Delivery: Syringe pump; 23:44 Drug: Moxifloxacin 400 mg [moxifloxacin 400 mg tablet (1 tabs)] Route: PO; kc3 23:44 Drug: Tessalon 200 mg Route: PO; kc3 Signatures: Dispatcher [employer] EDElda Lee, RN RN kcs Francheska Obrien, Reg Reg gb Negrito Apple, SKI PATROL DIRECTOR SKI PATROL DIRECTOR Latrice Menjivar, FINAL APPLICATION REVIEWER FINAL APPLICATION REVIEWER ar3 Calista Brush, NICCI GRAJEDA ttLeticia Montes RN RN kc3 Juliet Bond, Reg Reg ks16 Anthony Garcia RT rs5 The chart was reviewed and I authenticate all verbal orders and agree with the evaluation and treatment provided.Attachments: 22:39 [facility] Payment Agreement [email or web address] 05/07 10:48 T-Sheet-- Draft Copy gb Chart Complete MTDD
--- NOTE | 2016-05-09 18:10 | EDDOCDS ---
Nurse's Notes [facility] Name: Wilma Waters Age: 80 yrs Sex: Female : 1935 Arrival Date: 05/06/2016 Time: 21:28 Bed 7 Private MD: Akiko Paris Diagnosis: Bronchitis, not specified as acute or chronic;Hypo-osmolality and hyponatremia Presentation: 05/06 21:38 Presenting complaint: Patient states: has had diarrhea for less than a week - congested kcs cough and today vomiting. Mother states: s Urgent care this am and diagnosed with Bronchitis - started on Augmentin - has only had one dose - now can't keep fluids down. states: as seen at. Adult Sepsis Screening: The patient does not have new or worsening altered mentation. Patient has a respiratory rate of greater than or equal to 22 (1 point). Systolic blood pressure is greater than 100. Patient has a qSOFA score of 0- Negative Sepsis Screen. Patient has cough and/or SOB- Positive Sepsis Screen. Suicide/Homicide risk assessment- the patient denies having any suicidal and/or homicidal ideations and does not present with any other emotional, behavioral or mental health complaints. Status: Patient is not a office machine servicer or dependent. Transition of care: patient was not received from another setting of care. 21:38 Acuity: BHUPINDER Level 3 kcs 21:38 Method Of Arrival: Walkin/Carried/Asstd kcs Triage Assessment: 21:46 General: Appears ill, well developed, well nourished, well groomed, Behavior is kcs cooperative, pleasant. Pain: Denies pain. The patient is triaged at the bedside. See Assessment in Nurses Notes section of ED record. Neurological: Level of Consciousness is awake, alert. Respiratory: Airway is patent Respiratory effort is even, unlabored, Respiratory pattern is regular, symmetrical. Derm: Skin is intact, is fragile, Skin is dry, Skin is normal. Historical: - Allergies: No known drug Allergies; - Home Meds: 1. Augmentin 875-125 mg Oral tab 1 tab every 12 hours 2. Zofran (as hydrochloride) 4 mg oral tab every 8 hours took 2 at 1900 3. lisinopril 10 mg Oral tab 1 tab once daily 4. ibuprofen 600 mg Oral tab 1 tab every 6 hours this am 5. Vytorin 10-20 10-20 mg oral tab 1 tab once daily 6. Advair Diskus 250-50 mcg/dose Inhl dsdv 1 puff 2 times per day 7. Albuterol Inhl 2 puffs every 4 hours 8. aspirin 81 mg Oral tab 1 tab once daily 9. Vitamin D Oral 5000 unit daily 10. calcium 600 plus Vitamin D 400 daily - PMHx: Hypertension; Hypercholesterolemia; Diverticulitis; Osteoporosis; - PSHx: Cataract Surgery- Bilateral; Hysterectomy; Cholecystectomy; - Social history: Smoking status: Patient states was never smoker of tobacco. No barriers to communication noted, The patient speaks fluent Kenyan. - Family history: Not pertinent. - : The pt / caregiver states he / she is not on anticoagulants. Home medication list is obtained from the patient. - Exposure Risk Screening:: None identified. Screenin:48 Screening information is obtained from the patient. Fall risk: At risk due to prior kcs history of falls, The following interventions are performed due to a positive Fall Risk Screen: Fall Risk is added to Special Handling on the patient Summary Screen. A Fall Risk Bracelet was applied to the patient. Side Rails are placed in the up position. A Call Sanchez is given with instruction to call for help when getting out of bed. Fall Alert bracelet is placed on the patient. Assistance ADL's: requires no assistance with activities of daily living. Abuse/DV Screen: The patient / caregiver reports he/she is: not in a situation that causes fear, pain or injury. Nutritional screening: No deficits noted. Advance Directives: Currently, there is a health care proxy, daughter - Dayanara Oro. There is an active DNR order but there is no copy available at this time. home support is adequate. Assessment: 22:20 General: Appears in no apparent distress, comfortable, Behavior is appropriate for age, ttb cooperative, pleasant. Pain: Denies pain. Neurological: Level of Consciousness is awake, alert, Oriented to person, place, time, Moves all extremities. Speech is normal, Facial symmetry appears normal. Cardiovascular: Heart tones S1 S2 present Chest pain is denied. Respiratory: Airway is patent Respiratory effort is even, unlabored, Respiratory pattern is regular, symmetrical, Breath sounds with rhonchi expiratory in left posterior lower lobe, right posterior middle lobe and right posterior lower lobe Reports cough that is non-productive, the patient has mild shortness of breath. GI: Abdomen is non- distended Bowel sounds present X 4 quads. Abd is soft X 4 quads Reports diarrhea, nausea, vomiting. Derm: No deficits noted. Skin is normal. Injury Description: No known injury. 22:43 Reassessment: Patient appears in no apparent distress at this time. pt continues to ttb rest on stretcher. Labs sent per orders. Family at bedside. NAD noted. IVF's infusing. Report given to next RNYasmine to continue care at this time.. 23:35 General: Appears in no apparent distress, comfortable, Behavior is appropriate for age, kc3 cooperative. Pain: Denies pain. Neurological: Level of Consciousness is awake, alert, Oriented to person, place, time. Respiratory: Respiratory effort is even, unlabored. Derm: Skin is pink, warm & dry. 05/07 00:28 General: Appears in no apparent distress, comfortable, Behavior is appropriate for age, kc3 cooperative. Pain: Denies pain. Neurological: Level of Consciousness is awake, alert, Oriented to person, place, time. Respiratory: Respiratory effort is even, unlabored. Derm: Skin is pink, warm & dry. Vital Signs: 05/06 21:30 BP 203 / 80; Pulse 63; Resp 18; Temp 98.4(O); Pulse Ox 98% on R/A; Weight 74.84 kg (R); elp Height 4 ft. 11 in. (149.86 cm) (R); 23:20 BP 188 / 77; Pulse 63; Resp 20; Pulse Ox 96% on R/A; Pain 0/10; kc3 05/07 00:28 BP 196 / 87; Pulse 70; Resp 20; Temp 98.7(O); Pulse Ox 96% on R/A; Pain 0/10; kc3 05/06 21:30 Body Mass Index 33.33 (74.84 kg, 149.86 cm) elp 00:28 Provider aware of BP at discharge and approved for discharge. Pt to take BP medication kc3 at home. Vitals: 05/06 21:30 Log In Time: May 06, 2016 at 21:28. [facility] ED Course: 21:30 Patient visited by Cherry Rice PCA. elp 21:30 Akiko Paris is Private Physician. elp 21:30 Patient moved to Waiting elp 21:32 Patient visited by Cherry Rice PCA. elp 21:32 Patient moved to Pre RCE elp 21:32 Patient moved to 7 rs3 21:40 Triage Initiated kcs 22:20 The patient / caregiver is instructed regarding the plan of care and ED course. ttb Accompanied by Family Member, Patient has correct armband on for positive identification. Placed in gown. Bed in low position. Call light in reach. 22:20 Inserted peripheral IV: 20gauge IV in left antecubital area and blood collected. ttb Patient tolerated the procedure well. Labs drawn. (by ED staff). 22:22 [facility]. ke 22:22 Patient visited by Negrito Apple FNP. nuvia 22:22 Patient visited by Negrito Apple FNP. ke 22:22 Patient visited by Calista Brush RN. ttb 22:36 BMP Sent. sls1 22:36 CBC Sent. sls1 22:36 BNP Sent. sls1 22:36 Lipase Sent. sls1 22:36 Liver Profile Sent. sls1 22:39 [facility] Payment Agreement was scanned into [employer] and attached to record. ks16 22:44 Patient visited by Calista Brush, NICCI. ttb 23:03 Patient moved to Radiology kenneth 23:04 Patient moved to 7 kenneth 23:26 Patient visited by Negrito Apple FNP. ke 23:39 Akiko Paris is Referral Physician. ke 05/07 00:29 Discontinued IV lock intact, bleeding controlled, pressure dressing applied, No kc3 redness/swelling at site. No procedures done that require assistance. 10:48 T-Sheet-- Draft Copy was scanned into [employer] and attached to record. gb 12:27 Chest, 2 View (pa\E\lat) Returned. EDMS 17:07 Mary Sierra, NICCI is Primary Nurse. ke Administered Medications: 05/06 22:30 Drug: NS 0.9% 1000 ml [sodium chloride 0.9 % intravenous solution] Route: IV; Rate: ttb bolus; Site: left antecubital; 22:40 Drug: Albuterol 2.5 mg [albuterol sulfate 2.5 mg/0.5 mL solution for nebulization (0.5 rs5 mL)] Route: Nebulizer; 22:40 Drug: Albuterol-Ipratropium 3 ml [ipratropium-albuterol 0.5 mg-3 mg(2.5 mg base)/3 mL rs5 nebulization soln (3 mL)] Route: Inhalation; 22:43 Drug: Metoclopramide 10 mg [metoclopramide 5 mg/mL injection solution] Route: IV; Rate: ttb 40 mg/hr; Infused Over: 15 mins; Site: left antecubital; Delivery: Syringe pump; 23:44 Drug: Moxifloxacin 400 mg [moxifloxacin 400 mg tablet (1 tabs)] Route: PO; kc3 23:44 Drug: Tessalon 200 mg Route: PO; kc3 RT: 22:46 Initial Med Neb Given as ordered Patient was instructed and evaluated on procedure rs5 Patient tolerated procedure well without adverse effect. Respiratory: Airway is patent Respiratory effort is even, unlabored, Respiratory pattern is regular symmetrical, Breath sounds with crackles bilaterally. Breath sounds with rhonchi Reports cough that is productive. Order Results: Lab Order: CBC; SPEC'M 05/06/16 22:19 Test: WHITE BLOOD COUNT; Value: 5.5; Range: 4.0-10.0; Units: K/mm3; Status: F Test: RED BLOOD COUNT; Value: 4.47; Range: 4.00-5.40; Units: M/mm3; Status: F Test: HEMOGLOBIN; Value: 12.9; Range: 12.0-16.0; Units: g/dl; Status: F Test: HEMATOCRIT; Value: 37.5; Range: 36.0-47.0; Units: %; Status: F Test: MEAN CORPUSCULAR VOLUME; Value: 84.0; Range: 80.0-96.0; Units: fl; Status: F Test: MEAN CORPUSCULAR HEMOGLOBIN; Value: 28.9; Range: 27.0-33.0; Units: pg; Status: F Test: MEAN CORPUSCULAR HGB CONC; Value: 34.4; Range: 32.0-36.5; Units: g/dl; Status: F Test: RED CELL DISTRIBUTION WIDTH; Value: 12.3; Range: 11.5-14.5; Units: %; Status: F Test: PLATELET COUNT, AUTOMATED; Value: 222; Range: 150-450; Units: k/mm3; Status: F Lab Order: BMP; SPEC'05/06/16 22:19 Test: GLUCOSE, FASTING; Value: 101; Range: 83-110; Units: MG/DL; Status: F Test: BLOOD UREA NITROGEN; Value: 9; Range: 7-18; Units: MG/DL; Status: F Test: CREATININE FOR GFR; Value: 0.75; Range: 0.55-1.02; Units: MG/DL; Status: F Test: GLOMERULAR FILTRATION RATE; Value: > 60.0; Range: >32; Status: F Test: SODIUM LEVEL; Value: 126; Range: 136-145; Abnormal: Below low normal; Units: MEQ/L; Status: F Test: POTASSIUM SERUM; Value: 3.7; Range: 3.5-5.1; Units: MEQ/L; Status: F Test: CHLORIDE LEVEL; Value: 88; Range: 98-107; Abnormal: Below low normal; Units: MEQ/L; Status: F Test: CARBON DIOXIDE LEVEL; Value: 27; Range: 21-32; Units: MEQ/L; Status: F Test: ANION GAP; Value: 11; Range: 8-16; Units: MEQ/L; Status: F Test: CALCIUM LEVEL; Value: 8.9; Range: 8.8-10.2; Units: MG/DL; Status: F Test Note: ; Units are mL/min/1.73 m2 Chronic Kidney Disease Staging per NKF: Stage I & II GFR >=60 Normal to Mildly Decreased Stage III GFR 30-59 Moderately Decreased Stage IV GFR 15-29 Severely Decreased Stage V GFR <15 Very Little GFR Left ESRD GFR <15 on PERFORMANCE MANAGER Lab Order: BNP; SPEC'05/06/16 22:05 Test: BRAIN NATRIURETIC PEPTIDE; Value: 230; Range: <100; Abnormal: Above high normal; Units: PG/ML; Status: F Lab Order: Lipase; SPEC05/06/16 22:19 Test: LIPASE; Value: 102; Range: 73-393; Units: U/L; Status: F Lab Order: Liver Profile; SPEC'05/06/16 22:19 Test: AST/SGOT; Value: 17; Range: 15-37; Units: U/L; Status: F Test: ALT/SGPT; Value: 14; Range: 12-78; Units: U/L; Status: F Test: ALKALINE PHOSPHATASE; Value: 88; Range: 45-117; Units: U/L; Status: F Test: BILIRUBIN,TOTAL; Value: 0.5; Range: 0.2-1.0; Units: MG/DL; Status: F Test: BILIRUBIN,DIRECT; Value: 0.1; Range: 0.0-0.2; Units: MG/DL; Status: F Test: TOTAL PROTEIN; Value: 6.6; Range: 6.4-8.2; Units: GM/DL; Status: F Test: ALBUMIN; Value: 3.4; Range: 3.2-5.2; Units: GM/DL; Status: F Test: ALBUMIN/GLOBULIN RATIO; Value: 1.06; Range: 1.00-1.93; Status: F Radiology Order: Chest, 2 View (pa\E\lat) Test: Chest, 2 View (pa\E\lat) REASON FOR EXAMINATION: Cough; CHEST X-RAY: Two views.; ; HISTORY: Cough.; ; Comparison chest x-ray July 05, 2008.; ; FINDINGS: The lungs are symmetrically aerated. Pleural angles are sharp. No; infiltrate is seen. Heart size is normal. Pulmonary vasculature is not; increased. No significant bony abnormality is noted. There are clips in the; upper abdomen consistent with a previous cholecystectomy.; ; IMPRESSION: No active disease.; ; ; Signed by; Gael Sharma MD 05/07/2016 12:18 P; Outcome: 23:40 Discharge ordered by Provider. nuvia 05/07 00:29 Discharge Assessment: Patient awake, alert and oriented x 3. No cognitive and/or kc3 functional deficits noted. Patient verbalized understanding of disposition instructions. patient administered narcotics - no. The following High Risk Discharge criteria are identified: None. Discharged to home via wheelchair, with family. Condition: stable. Discharge instructions given to patient, Instructed on discharge instructions, follow up and referral plans. medication usage, Demonstrated understanding of instructions, medications, Pt was receptive of discharge instructions/ teaching. Prescriptions given X 2. No special radiology studies were completed. Property :Personal belongings accompany Pt. 00:30 Patient left the ED. kc3 17:08 Patient left the ED. nuvia Signatures: Dispatcher [employer] Elda Song, RN RN kcs Delphine, Driss kenneth Micah, Francheska, Reg Reg gb Negrito Apple, RADIOLOGIST CHIEF OF BREAST IMAGING RADIOLOGIST CHIEF OF BREAST IMAGING Belkis Davis RN RN rs3 Sandy Tobin RN RN sls1 Anthony Garcia,RT RT rs5 Calista Brush, NCICI RN ttb Cherry Riec, THEATRE DIRECTOR THEATRE DIRECTOR elp Leticia Chacko RN RN kc3 Juliet Bond, Reg Reg ks16 Corrections: (The following items were deleted from the chart) 00:30 00:28 BP 196 / 87; Pulse 70bpm; Resp 20bpm; Pulse Ox 96% RA; Temp 98.7F Oral; Pain kc3 0/10; kc3 Chart Complete MTDD
--- NOTE | 2016-05-09 18:10 | EDDOCDS ---
Physician Documentation [facility] Name: Wilma Waters Age: 80 yrs Sex: Female : 1935 Arrival Date: 05/06/2016 Time: 21:28 Bed 7 Private MD: Akiko Paris Disposition: 05/06/16 23:40 Discharged to Home/Self Care. Impression: Bronchitis, not specified as acute or chronic, Hypo-osmolality and hyponatremia. - Condition is Stable. - Discharge Instructions: Acute Bronchitis, Hyponatremia. - Prescriptions for Moxifloxacin 400 mg Oral Tablet - take 1 tablet by ORAL route once daily; 5 tablet. benzonatate 200 mg Oral Capsule - take 1 capsule by ORAL route 3 times per day As needed; 30 capsule. Phenergan 25 mg Rectal Suppository - insert 1 suppository by RECTAL route every 6 hours As needed; 12 suppository. - Medication Reconciliation, Local Pharmacy Hours form. - Follow up: Akiko Paris; When: 4 - 5 days; Reason: Recheck today's complaints, Continuance of care. - Problem is an ongoing problem. - Symptoms are unchanged. Historical: - Allergies: No known drug Allergies; - Home Meds: 1. Augmentin 875-125 mg Oral tab 1 tab every 12 hours 2. Zofran (as hydrochloride) 4 mg oral tab every 8 hours took 2 at 1900 3. lisinopril 10 mg Oral tab 1 tab once daily 4. ibuprofen 600 mg Oral tab 1 tab every 6 hours this am 5. Vytorin 10-20 10-20 mg oral tab 1 tab once daily 6. Advair Diskus 250-50 mcg/dose Inhl dsdv 1 puff 2 times per day 7. Albuterol Inhl 2 puffs every 4 hours 8. aspirin 81 mg Oral tab 1 tab once daily 9. Vitamin D Oral 5000 unit daily 10. calcium 600 plus Vitamin D 400 daily - PMHx: Hypertension; Hypercholesterolemia; Diverticulitis; Osteoporosis; - PSHx: Cataract Surgery- Bilateral; Hysterectomy; Cholecystectomy; - Social history: Smoking status: Patient states was never smoker of tobacco. No barriers to communication noted, The patient speaks fluent Armenian. - Family history: Not pertinent. - : The pt / caregiver states he / she is not on anticoagulants. Home medication list is obtained from the patient. - Exposure Risk Screening:: None identified. Vital Signs: 05/06 21:30 BP 203 / 80; Pulse 63; Resp 18; Temp 98.4(O); Pulse Ox 98% on R/A; Weight 74.84 kg / elp 164.99 lbs (R); Height 4 ft. 11 in. (149.86 cm) (R); 23:20 BP 188 / 77; Pulse 63; Resp 20; Pulse Ox 96% on R/A; Pain 0/10; kc3 05/07 00:28 BP 196 / 87; Pulse 70; Resp 20; Temp 98.7(O); Pulse Ox 96% on R/A; Pain 0/10; kc3 05/06 21:30 Body Mass Index 33.33 (74.84 kg, 149.86 cm) elp 00:28 Provider aware of BP at discharge and approved for discharge. Pt to take BP medication kc3 at home. MDM: 05/06 22:31 IV Saline Lock ordered. ke 22:31 NS 0.9% 1000 ml IV at bolus once ordered. ke 22:31 Metoclopramide 10 mg IV at 40 mg/hr once over 15 mins ordered. ke 22:31 Albuterol 2.5 mg Nebulizer once ordered. ke 22:31 Albuterol-Ipratropium 3 ml Inhalation once ordered. ke 22:31 Call Respiratory ordered. ke 22:31 Call Respiratory complete. ar3 22:33 CBC Ordered. EDMS 22:33 BMP Ordered. EDMS 22:33 BNP Ordered. EDMS 22:33 Lipase Ordered. EDMS 22:33 Liver Profile Ordered. EDMS 22:33 Chest, 2 View (pa\E\lat) Ordered. EDMS 22:38 Financial registration complete. ks16 22:39 ON LICENSE OF [facility] Payment Agreement was scanned into [employer] and attached to record. ks16 23:26 BMP Reviewed. ke 23:26 BNP Reviewed. ke 23:26 CBC Reviewed. ke 23:26 Lipase Reviewed. ke 23:26 Liver Profile Reviewed. ke 23:36 Moxifloxacin 400 mg PO once ordered. ke 23:36 Tessalon 200 mg PO once ordered. ke 05/07 10:48 T-Sheet-- Draft Copy was scanned into [employer] and attached to record. gb 17:06 ED course: pt with continued c/o nausea. will attempt phenergan pr.does not want admit..ke Administered Medications: 05/06 22:30 Drug: NS 0.9% 1000 ml [sodium chloride 0.9 % intravenous solution] Route: IV; Rate: ttb bolus; Site: left antecubital; 22:40 Drug: Albuterol 2.5 mg [albuterol sulfate 2.5 mg/0.5 mL solution for nebulization (0.5 rs5 mL)] Route: Nebulizer; 22:40 Drug: Albuterol-Ipratropium 3 ml [ipratropium-albuterol 0.5 mg-3 mg(2.5 mg base)/3 mL rs5 nebulization soln (3 mL)] Route: Inhalation; 22:43 Drug: Metoclopramide 10 mg [metoclopramide 5 mg/mL injection solution] Route: IV; Rate: ttb 40 mg/hr; Infused Over: 15 mins; Site: left antecubital; Delivery: Syringe pump; 23:44 Drug: Moxifloxacin 400 mg [moxifloxacin 400 mg tablet (1 tabs)] Route: PO; kc3 23:44 Drug: Tessalon 200 mg Route: PO; kc3 Signatures: Dispatcher [employer] EDElda Lee, RN RN kcs Francheska Obrien, Reg Reg gb Negrito Apple, LOGGING SPECIALIST LOGGING SPECIALIST Latrice Menjivar, COOKER MECHANIC COOKER MECHANIC ar3 Calista Brush, NICCI GRAJEDA ttLeticia Montes RN RN kc3 Juliet Bond, Reg Reg ks16 Anthony Garcia RT rs5 The chart was reviewed and I authenticate all verbal orders and agree with the evaluation and treatment provided.Attachments: 22:39 ON LICENSE OF [facility] Payment Agreement ks16 05/07 10:48 T-Sheet-- Draft Copy gb Chart Complete MTDD
== END 2016-05-07 00:30 | disposition home or self-care (01) ==
LOC: M ED 21:28
DX: J20.9 Acute bronchitis, unspecified (principal); E87.1 Hypo-osmolality and hyponatremia; I10 Essential (primary) hypertension; E78.00 Pure hypercholesterolemia, unspecified; K57.92 Diverticulitis of intestine, part unspecified, without perforation or abscess without bleeding; M81.0 Age-related osteoporosis without current pathological fracture; Z79.899 Other long term (current) drug therapy; Z79.82 Long term (current) use of aspirin; Z79.51 Long term (current) use of inhaled steroids
CPT/HCPCS: 36415; 71020; 80048; 80076; 83690; 83880; 85027; 94640; 96374; 99284; J2765

== ENCOUNTER 2016-05-07 19:15 | Emergency (ER) | payer MEDICARE, BC, OTHER ==
[2016-05-07] MEDS ORDERED: PROMETHAZINE INJ 25 MG/ML VIAL (J2550) As Ordered ONE (19:35)
[2016-05-07] MEDS ORDERED: KETOROLAC 30 MG/ML VIAL (J1885) As Ordered ONE (19:35)
[2016-05-07 19:59] LABS: EOS # 0.1 K/mm3 (0.0-0.50); EOS % 1.5 % (0.0-3.0); LARGE UNSTAINED CELL # 0.1 K/mm3 (0.0-0.4); LARGE UNSTAINED CELL % 1.4 % (0.0-4.0); LYMPH # 0.8 K/mm3 (1.5-4.5); LYMPH % 13.7 % (24.0-44.0); MEAN CORPUSCULAR HEMOGLOBIN 28.8 pg (27.0-33.0); MEAN CORPUSCULAR HGB CONC 34.7 g/dl (32.0-36.5); MONO # 0.3 K/mm3 (0.0-0.8); MONO % 5.3 % (0.0-5.0); PLATELET COUNT, AUTOMATED 238 k/mm3 (150-450); RED CELL DISTRIBUTION WIDTH 13.1 % (11.5-14.5); WHITE BLOOD COUNT 5.1 K/mm3 (4.0-10.0)
[2016-05-07 20:27] LABS: ALBUMIN 3.3 GM/DL (3.2-5.2); ALBUMIN/GLOBULIN RATIO 1.22 (1.00-1.93); ALKALINE PHOSPHATASE 89 U/L (45-117); ALT/SGPT 16 U/L (12-78); AMYLASE 47 U/L (25-115); ANION GAP 10 MEQ/L (8-16); AST/SGOT 20 U/L (15-37); BILIRUBIN,DIRECT 0.1 MG/DL (0.0-0.2); BILIRUBIN,TOTAL 0.4 MG/DL (0.2-1.0); BLOOD UREA NITROGEN 8 MG/DL (7-18); CALCIUM LEVEL 8.6 MG/DL (8.8-10.2); CARBON DIOXIDE LEVEL 28 MEQ/L (21-32); CHLORIDE LEVEL 91 MEQ/L (98-107); GLOMERULAR FILTRATION RATE > 60.0 (>32); GLUCOSE, FASTING 102 MG/DL (83-110); POTASSIUM SERUM 3.9 MEQ/L (3.5-5.1); SODIUM LEVEL 129 MEQ/L (136-145)
[2016-05-07] MEDS ORDERED: LABETALOL HCL 100 MG/20 ML VIAL As Ordered ONE (20:34)
[2016-05-07 20:47] LABS: INR 0.98
--- NOTE | 2016-05-07 22:33 | EDDOCDS ---
Physician Documentation [facility] Name: Wilma Waters Age: 80 yrs Sex: Female : 1935 Arrival Date: 05/07/2016 Time: 19:15 Bed Family 1 Private MD: Akiko Paris Disposition: 05/07/16 22:21 Discharged to Home/Self Care. Impression: Vomiting, Nausea with vomiting, unspecified, Essential (primary) hypertension. - Condition is Stable. - Discharge Instructions: Hypertension, Nausea and Vomiting, Nausea, Adult. - Medication Reconciliation, Local Pharmacy Hours form. - Follow up: Akiko Paris; When: As needed; Reason: Continuance of care. - Problem is an ongoing problem. - Symptoms are unchanged. Historical: - Allergies: No known drug Allergies; - Home Meds: 1. Advair Diskus 250-50 mcg/dose Inhl dsdv 1 puff 2 times per day 2. Albuterol Inhl 2 puffs every 4 hours 3. aspirin 81 mg Oral tab 1 tab once daily 4. calcium 600 plus Vitamin D 400 daily 5. ibuprofen 600 mg Oral tab 1 tab every 6 hours this am 6. lisinopril 10 mg Oral tab 1 tab once daily 7. Vitamin D Oral 5000 unit daily 8. Vytorin 10-20 10-20 mg oral tab 1 tab once daily 9. Avelox 400 mg Oral tab 1 tab once daily started yesterday - PMHx: Diverticulitis; Hypercholesterolemia; Hypertension; Osteoporosis; - PSHx: Cataract Surgery- Bilateral; Hysterectomy; Cholecystectomy; - Social history: Smoking status: Patient states was never smoker of tobacco. No barriers to communication noted, The patient speaks fluent Urdu. - Family history: Not pertinent. - : The pt / caregiver states he / she is not on anticoagulants. Home medication list is obtained from [employer] import data. - Exposure Risk Screening:: None identified. Vital Signs: 05/07 19:33 BP 176 / 79; Pulse 67; Resp 18; Temp 97.6(TE); Pulse Ox 98% on R/A; Weight 74.84 kg / kcs 164.99 lbs; Height 4 ft. 11 in. (149.86 cm); Pain 0/10; 19:45 BP 205 / 89 (auto/); mgs 19:45 Pulse 68 MON; Pulse Ox 98% ; mgs 19:46 Pulse 70 MON; Pulse Ox 97% ; mgs 19:46 BP 191 / 82 (auto/); mgs 20:15 BP 201 / 122 (auto/); mgs 20:15 Pulse 70 MON; Pulse Ox 96% ; mgs 20:20 BP 201 / 90 (auto/); mgs 20:20 Pulse 70 MON; Pulse Ox 97% ; mgs 20:45 BP 184 / 77 (auto/); mgs 20:45 Pulse 68 MON; Pulse Ox 97% ; mgs 21:15 BP 210 / 77 (auto/); mgs 21:15 Pulse 68 MON; Pulse Ox 98% ; mgs 21:24 BP 227 / 92 (auto/); mgs 21:24 Pulse 68 MON; Pulse Ox 97% ; mgs 21:28 BP 180 / 102 (man/); mgs 22:20 BP 162 / 78 (man/); mgs 22:23 Pulse 66 MON; Resp 18 S; Temp 97.7(O); Pulse Ox 97% on R/A; Pain 0/10; cln 19:33 Body Mass Index 33.33 (74.84 kg, 149.86 cm) kcs MDM: 19:23 NS 0.9% 1000 ml IV at bolus once ordered. ke 19:23 ketorolac 30 mg IVP once ordered. ke 19:23 IV Saline Lock ordered. ke 19:23 Undress patient appropriately for examination ordered. ke 19:23 Promethazine 25 mg IVP once; dilute and administer 30-60 minutes ordered. ke 19:24 Amylase Ordered. EDMS 19:24 Basic Metabolic Profile Ordered. EDMS 19:24 CBC with Diff Ordered. EDMS 19:24 Lipase Ordered. EDMS 19:24 Liver Profile Ordered. EDMS 19:24 Prothrombin Time Profile\E\INR Ordered. EDMS 19:25 Abdomen, Flat\E\Upright,PA Chest Ordered. EDMS 19:25 NOTHING BY MOUTH+DIET ordered. EDMS 19:37 BNP Ordered. EDMS 20:28 Labetalol 10 mg IVP at bolus once over 2 mins ordered. ke 20:28 Basic Metabolic Profile Reviewed. ke 20:28 CBC with Diff Reviewed. ke 20:28 Liver Profile Reviewed. ke 20:28 BNP Reviewed. ke 20:28 Amylase Reviewed. ke 20:28 Lipase Reviewed. ke 20:52 Financial registration complete. zo 21:36 Labetalol 10 mg IVP at bolus once over 2 mins ordered. mgs 22:12 [facility] Payment Agreement was scanned into [employer] and attached to record. zo Administered Medications: 19:49 Drug: ketorolac 30 mg [ketorolac 30 mg/mL (1 mL) injection solution (1 mL)] Route: IVP; mgs Site: left antecubital; 19:53 Drug: NS 0.9% 1000 ml [sodium chloride 0.9 % intravenous solution] Route: IV; Rate: mgs bolus; Site: left antecubital; 22:02 Follow up: IV Status: Completed infusion; IV Intake: 1000ml mgs 19:53 Drug: Promethazine 25 mg [promethazine 25 mg/mL injection solution (1 mL)] Route: IVP; mgs Site: left antecubital; 20:40 Drug: Labetalol 10 mg [labetalol 5 mg/mL intravenous solution (2 mL)] Route: IVP; Rate: mgs bolus; Infused Over: 2 mins; Site: left antecubital; 21:50 Drug: Labetalol 10 mg [labetalol 5 mg/mL intravenous solution (2 mL)] Route: IVP; Rate: mgs bolus; Infused Over: 2 mins; Site: left antecubital; Signatures: Dispatcher [employer] Elda Song, RN RN Negrito Schwartz, RECONSTRUCTIVE DENTIST RECONSTRUCTIVE DENTIST Jesus Richardson Matthew, RN RN mgs The chart was reviewed and I authenticate all verbal orders and agree with the evaluation and treatment provided.Attachments: 22:12 [facility] Payment Agreement zo MTDD
--- NOTE | 2016-05-07 22:33 | EDDOCDS ---
Nurse's Notes [facility] Name: Wilma Waters Age: 80 yrs Sex: Female : 1935 Arrival Date: 05/07/2016 Time: 19:15 Bed Family 1 Private MD: Akiko Paris Diagnosis: Vomiting;Nausea with vomiting, unspecified;Essential (primary) hypertension Presentation: 05/07 19:28 Presenting complaint: Patient states: she was here last night and returning because she kcs can not keep anything down - very weak. Adult Sepsis Screening: The patient does not have new or worsening altered mentation. Patient's respiratory rate is less than 22. Systolic blood pressure is greater than 100. Patient has a qSOFA score of 0- Negative Sepsis Screen. Suicide/Homicide risk assessment- the patient denies having any suicidal and/or homicidal ideations and does not present with any other emotional, behavioral or mental health complaints. 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 Transition of care: patient was not received from another setting of care. 19:28 Acuity: BHUPINDER Level 3 kcs 19:28 Method Of Arrival: Walkin/Carried/Asstd kcs Triage Assessment: 19:33 General: Appears comfortable, well developed, well nourished, well groomed, Behavior is kcs cooperative, pleasant. Pain: Denies pain. The patient is triaged at the bedside. See Assessment in Nurses Notes section of ED record. Neurological: Level of Consciousness is awake, alert. Respiratory: Airway is patent Respiratory effort is even, unlabored, Respiratory pattern is regular, symmetrical. Derm: Skin is intact, is fragile, Skin is dry, Skin is normal. Historical: - Allergies: No known drug Allergies; - Home Meds: 1. Advair Diskus 250-50 mcg/dose Inhl dsdv 1 puff 2 times per day 2. Albuterol Inhl 2 puffs every 4 hours 3. aspirin 81 mg Oral tab 1 tab once daily 4. calcium 600 plus Vitamin D 400 daily 5. ibuprofen 600 mg Oral tab 1 tab every 6 hours this am 6. lisinopril 10 mg Oral tab 1 tab once daily 7. Vitamin D Oral 5000 unit daily 8. Vytorin 10-20 10-20 mg oral tab 1 tab once daily 9. Avelox 400 mg Oral tab 1 tab once daily started yesterday - PMHx: Diverticulitis; Hypercholesterolemia; Hypertension; Osteoporosis; - PSHx: Cataract Surgery- Bilateral; Hysterectomy; Cholecystectomy; - Social history: Smoking status: Patient states was never smoker of tobacco. No barriers to communication noted, The patient speaks fluent Belgian. - Family history: Not pertinent. - : The pt / caregiver states he / she is not on anticoagulants. Home medication list is obtained from [employer] import data. - Exposure Risk Screening:: None identified. Screenin:32 Screening information is obtained from the patient, family members. Fall risk: At risk mgs due to age, prior history of falls. Assistance ADL's: requires no assistance with activities of daily living. Abuse/DV Screen: The patient / caregiver reports he/she is: not in a situation that causes fear, pain or injury. Nutritional screening: No deficits noted. Advance Directives: Currently, there is a health care proxy, Elda Oro, daughter. There is no active DNR order. home support is adequate. Assessment: 19:52 Adult Sepsis Screening: The patient does not have new or worsening altered mentation. mgs Patient's respiratory rate is less than 22. Systolic blood pressure is greater than 100. Patient has a qSOFA score of 0- Negative Sepsis Screen. General: Appears in no apparent distress, Behavior is appropriate for age, cooperative. Neurological: Level of Consciousness is awake, alert, Oriented to person, place, time. Cardiovascular: Capillary refill < 3 seconds Heart tones S1 S2 present. Respiratory: Airway is patent Respiratory effort is even, unlabored, Respiratory pattern is regular, symmetrical, Breath sounds with rhonchi bilaterally. GI: Abdomen is flat, Bowel sounds present X 4 quads. Abd is soft and non tender X 4 quads. Derm: Skin is pink, warm & dry. 20:23 General: QMP aware of patients blood pressure. mgs 20:48 General: Appears in no apparent distress, Behavior is appropriate for age, cooperative. mgs Neurological: Level of Consciousness is awake, alert, Oriented to person, place, time. Cardiovascular: Capillary refill < 3 seconds. Respiratory: Airway is patent Respiratory effort is even, unlabored, Respiratory pattern is regular, symmetrical. Derm: Skin is pink, warm & dry. 21:28 Adult Sepsis Screening: Patient has new or worsening altered mentation (1 point). mgs Patient's respiratory rate is less than 22. Systolic blood pressure is greater than 100. Patient has a qSOFA score of 1- Negative Sepsis Screen. General: Appears in no apparent distress, Behavior is appropriate for age, cooperative. Neurological: Level of Consciousness is awake, alert. Cardiovascular: Capillary refill < 3 seconds. Respiratory: Airway is patent Respiratory effort is even, unlabored, Respiratory pattern is regular, symmetrical. Derm: Skin is pink, warm & dry. 22:30 Adult Sepsis Screening: The patient does not have new or worsening altered mentation. mgs Patient's respiratory rate is less than 22. Systolic blood pressure is greater than 100. Patient has a qSOFA score of 0- Negative Sepsis Screen. General: Appears in no apparent distress, Behavior is appropriate for age, cooperative. Neurological: Level of Consciousness is awake, alert, Oriented to person, place, time. Cardiovascular: Capillary refill < 3 seconds. Respiratory: Airway is patent Respiratory effort is even, unlabored, Respiratory pattern is regular, symmetrical. Derm: Skin is pink, warm & dry. Vital Signs: 19:33 BP 176 / 79; Pulse 67; Resp 18; Temp 97.6(TE); Pulse Ox 98% on R/A; Weight 74.84 kg; kcs Height 4 ft. 11 in. (149.86 cm); Pain 0/10; 19:45 BP 205 / 89 (auto/); mgs 19:45 Pulse 68 MON; Pulse Ox 98% ; mgs 19:46 Pulse 70 MON; Pulse Ox 97% ; mgs 19:46 BP 191 / 82 (auto/); mgs 20:15 BP 201 / 122 (auto/); mgs 20:15 Pulse 70 MON; Pulse Ox 96% ; mgs 20:20 BP 201 / 90 (auto/); mgs 20:20 Pulse 70 MON; Pulse Ox 97% ; mgs 20:45 BP 184 / 77 (auto/); mgs 20:45 Pulse 68 MON; Pulse Ox 97% ; mgs 21:15 BP 210 / 77 (auto/); mgs 21:15 Pulse 68 MON; Pulse Ox 98% ; mgs 21:24 BP 227 / 92 (auto/); mgs 21:24 Pulse 68 MON; Pulse Ox 97% ; mgs 21:28 BP 180 / 102 (man/); mgs 22:20 BP 162 / 78 (man/); mgs 22:23 Pulse 66 MON; Resp 18 S; Temp 97.7(O); Pulse Ox 97% on R/A; Pain 0/10; cln 19:33 Body Mass Index 33.33 (74.84 kg, 149.86 cm) [facility] Vitals: 19:16 Log In Time: May 07, 2016 at 19:16. RN notified that patient meets Red Flag gr2 criteria. ED Course: 19:16 Patient visited by Donald Shahid. gr2 19:16 Akiko Paris is Private Physician. gr2 19:16 Patient moved to Waiting gr2 19:17 Patient visited by Donald Shahid. gr2 19:17 Patient moved to 13 gr2 19:21 Negrito Apple FNP [facility]. ke 19:21 Patient visited by Negrito Apple FNP. ke 19:21 Patient visited by Negrito Apple FNP. ke 19:30 Triage Initiated kcs 19:33 Jean Bojorquez,NICCI is Primary Nurse. mgs 19:42 BNP Sent. mk4 19:42 Amylase Sent. mk4 19:42 Basic Metabolic Profile Sent. mk4 19:42 CBC with Diff Sent. mk4 19:42 Lipase Sent. mk4 19:42 Liver Profile Sent. mk4 19:42 Prothrombin Time Profile\E\INR Sent. mk4 19:52 Patient visited by Negrito Apple FNP. ke 19:53 Patient visited by Jean Bojorquez RN. mgs 20:05 Patient moved to Radiology kenneth 20:09 Patient moved to 13 kenneth 20:27 Patient visited by Negrito Apple FNP. ke 20:49 Patient visited by Jean Bojorquez RN. mgs 21:17 Patient visited by Negrito Apple FNP. ke 21:29 Patient visited by Jean Bojorquez RN. mgs 21:52 Patient visited by Negrito Apple FNP. ke 22:[address] [facility] Payment Agreement was scanned into [employer] and attached to record. zo 22:20 Patient visited by Jean Bojorquez RN. mgs 22:21 Akiko Paris is Referral Physician. ke 22:24 Patient visited by Monique Hernandes, SURGERY SCHEDULER. cln 22:30 Discontinued IV lock intact, bleeding controlled, pressure dressing applied, No mgs redness/swelling at site. No procedures done that require assistance. 22:32 Patient moved to Family Apr 22:32 The patient / caregiver is instructed regarding the plan of care and ED course. mgs Administered Medications: 19:49 Drug: ketorolac 30 mg [ketorolac 30 mg/mL (1 mL) injection solution (1 mL)] Route: IVP; mgs Site: left antecubital; 19:53 Drug: NS 0.9% 1000 ml [sodium chloride 0.9 % intravenous solution] Route: IV; Rate: mgs bolus; Site: left antecubital; 22:02 Follow up: IV Status: Completed infusion; IV Intake: 1000ml mgs 19:53 Drug: Promethazine 25 mg [promethazine 25 mg/mL injection solution (1 mL)] Route: IVP; mgs Site: left antecubital; 20:40 Drug: Labetalol 10 mg [labetalol 5 mg/mL intravenous solution (2 mL)] Route: IVP; Rate: mgs bolus; Infused Over: 2 mins; Site: left antecubital; 21:50 Drug: Labetalol 10 mg [labetalol 5 mg/mL intravenous solution (2 mL)] Route: IVP; Rate: mgs bolus; Infused Over: 2 mins; Site: left antecubital; Intake: 22:02 IV: 1000.00ml; Total: 1000.00ml. mgs Order Results: Lab Order: Amylase; SPEC'M 05/07/16 19:37 Test: AMYLASE; Value: 47; Range: 25-115; Units: U/L; Status: F Lab Order: Basic Metabolic Profile; SPEC'M 05/07/16 19:37 Test: GLUCOSE, FASTING; Value: 102; Range: 83-110; Units: MG/DL; Status: F Test: BLOOD UREA NITROGEN; Value: 8; Range: 7-18; Units: MG/DL; Status: F Test: CREATININE FOR GFR; Value: 0.80; Range: 0.55-1.02; Units: MG/DL; Status: F Test: GLOMERULAR FILTRATION RATE; Value: > 60.0; Range: >32; Status: F Test: SODIUM LEVEL; Value: 129; Range: 136-145; Abnormal: Below low normal; Units: MEQ/L; Status: F Test: POTASSIUM SERUM; Value: 3.9; Range: 3.5-5.1; Units: MEQ/L; Status: F Test: CHLORIDE LEVEL; Value: 91; Range: 98-107; Abnormal: Below low normal; Units: MEQ/L; Status: F Test: CARBON DIOXIDE LEVEL; Value: 28; Range: 21-32; Units: MEQ/L; Status: F Test: ANION GAP; Value: 10; Range: 8-16; Units: MEQ/L; Status: F Test: CALCIUM LEVEL; Value: 8.6; Range: 8.8-10.2; Abnormal: Below low normal; Units: MG/DL; Status: F Test Note: ; Units are mL/min/1.73 m2 Chronic Kidney Disease Staging per NKF: Stage I & II GFR >=60 Normal to Mildly Decreased Stage III GFR 30-59 Moderately Decreased Stage IV GFR 15-29 Severely Decreased Stage V GFR <15 Very Little GFR Left ESRD GFR <15 on RURAL ELECTRIFICATION ENGINEER Lab Order: CBC with Diff; SPEC'M 05/07/16 19:37 Test: WHITE BLOOD COUNT; Value: 5.1; Range: 4.0-10.0; Units: K/mm3; Status: F Test: RED BLOOD COUNT; Value: 4.54; Range: 4.00-5.40; Units: M/mm3; Status: F Test: HEMOGLOBIN; Value: 13.1; Range: 12.0-16.0; Units: g/dl; Status: F Test: HEMATOCRIT; Value: 37.7; Range: 36.0-47.0; Units: %; Status: F Test: MEAN CORPUSCULAR VOLUME; Value: 83.0; Range: 80.0-96.0; Units: fl; Status: F Test: MEAN CORPUSCULAR HEMOGLOBIN; Value: 28.8; Range: 27.0-33.0; Units: pg; Status: F Test: MEAN CORPUSCULAR HGB CONC; Value: 34.7; Range: 32.0-36.5; Units: g/dl; Status: F Test: RED CELL DISTRIBUTION WIDTH; Value: 13.1; Range: 11.5-14.5; Units: %; Status: F Test: PLATELET COUNT, AUTOMATED; Value: 238; Range: 150-450; Units: k/mm3; Status: F Test: NEUTROPHILS %; Value: 77.0; Range: 36.0-66.0; Abnormal: Above high normal; Units: %; Status: F Test: LYMPH %; Value: 13.7; Range: 24.0-44.0; Abnormal: Below low normal; Units: %; Status: F Test: MONO %; Value: 5.3; Range: 0.0-5.0; Abnormal: Above high normal; Units: %; Status: F Test: EOS %; Value: 1.5; Range: 0.0-3.0; Units: %; Status: F Test: BASO %; Value: 1.0; Range: 0.0-1.0; Units: %; Status: F Test: LARGE UNSTAINED CELL %; Value: 1.4; Range: 0.0-4.0; Units: %; Status: F Test: NEUTROPHILS #; Value: 4.0; Range: 1.8-7.7; Units: K/mm3; Status: F Test: LYMPH #; Value: 0.8; Range: 1.5-4.5; Abnormal: Below low normal; Units: K/mm3; Status: F Test: MONO #; Value: 0.3; Range: 0.0-0.8; Units: K/mm3; Status: F Test: EOS #; Value: 0.1; Range: 0.0-0.50; Units: K/mm3; Status: F Test: BASO #; Value: 0.0; Range: 0.0-0.2; Units: K/mm3; Status: F Test: LARGE UNSTAINED CELL #; Value: 0.1; Range: 0.0-0.4; Units: K/mm3; Status: F Lab Order: Lipase; SPEC'M 05/07/16 19:37 Test: LIPASE; Value: 92; Range: 73-393; Units: U/L; Status: F Lab Order: Liver Profile; SPEC'M 05/07/16 19:37 Test: AST/SGOT; Value: 20; Range: 15-37; Units: U/L; Status: F Test: ALT/SGPT; Value: 16; Range: 12-78; Units: U/L; Status: F Test: ALKALINE PHOSPHATASE; Value: 89; Range: 45-117; Units: U/L; Status: F Test: BILIRUBIN,TOTAL; Value: 0.4; Range: 0.2-1.0; Units: MG/DL; Status: F Test: BILIRUBIN,DIRECT; Value: 0.1; Range: 0.0-0.2; Units: MG/DL; Status: F Test: TOTAL PROTEIN; Value: 6.0; Range: 6.4-8.2; Abnormal: Below low normal; Units: GM/DL; Status: F Test: ALBUMIN; Value: 3.3; Range: 3.2-5.2; Units: GM/DL; Status: F Test: ALBUMIN/GLOBULIN RATIO; Value: 1.22; Range: 1.00-1.93; Status: F Lab Order: Prothrombin Time Profile\E\INR; SPEC'M 05/07/16 20:31 Test: PROTHROMBIN TIME; Value: 13.1; Range: 12.3-14.5; Units: SECONDS; Status: F Test: INR; Value: 0.98; Status: F Test Note: ; THERAPUTIC HUMAN INR VALUES INDICATIONS NORMAL RANGES PROPHYLAXIS/TREATMENT OF: VENOUS THROMBOSIS 2.0-3.0 PULMONARY EMBOLISM 2.0-3.0 PREVENTION OF SYSTEMIC EMBOLISM FROM: TISSUE HEART VALVES 2.0-3.0 ACUTE MYOCARDIAL INFARCTION 2.0-3.0 VALVULAR HEART DISEASE 2.0-3.0 ATRIAL FIBRILLATION 2.0-3.0 MECHANICAL VALVES(HIGH RISK) 2.5-3.5 RECURRENT MYOCARDIAL INFARCTION 2.5-3.5 Lab Order: BNP; SPEC'M 05/07/16 19:37 Test: BRAIN NATRIURETIC PEPTIDE; Value: 240; Range: <100; Abnormal: Above high normal; Units: PG/ML; Status: F Outcome: 22:21 Discharge ordered by Provider. 22:31 Discharge Assessment: Patient awake, alert and oriented x 3. No cognitive and/or mgs functional deficits noted. Patient verbalized understanding of disposition instructions. patient administered narcotics - no. The following High Risk Discharge criteria are identified: None. Condition: stable. Discharge instructions given to patient, family, Instructed on discharge instructions, follow up and referral plans. Demonstrated understanding of instructions, Pt was receptive of discharge instructions/ teaching. No special radiology studies were completed. Property sent home with patient. 22:32 Patient left the ED. mgs Signatures: Elda Oro, RN RN Uzma Tinoco RN Driss Robins Karl, Jesus Mayberry Gainslee gr2 Ankita Tellez RN RN mk4 Jean Bojorquez RN RN mgs Cecilio, Monique, SURGERY SCHEDULER SURGERY SCHEDULER cln MTDD
--- NOTE | 2016-05-08 09:03 | REP ---
Abdomen series: Three views. History: Abdominal pain. Finding: Supine chest radiograph is unremarkable. There is no evidence of infiltrate. Heart is not felt to be enlarged. Pulmonary vasculature is not increased. Supine and cross-table lateral views of the abdomen show no evidence of free air. There is some vascular calcification in a normal caliber aorta. There are clips in right upper quadrant post cholecystectomy. Degenerative disc changes are seen along with osteoarthritic facet changes in the lumbar spine. Flank stripes are intact. Psoas margins are symmetric. Bowel gas pattern is unremarkable. Impression: No acute disease seen. Signed by Gael Sharma MD 05/08/2016 12:30 P
--- NOTE | 2016-05-09 23:33 | EDDOCDS ---
Physician Documentation [facility] Name: Wilma Waters Age: 80 yrs Sex: Female : 1935 Arrival Date: 05/07/2016 Time: 19:15 Bed Family 1 Private MD: Akiko Paris Disposition: 05/07/16 22:21 Discharged to Home/Self Care. Impression: Vomiting, Nausea with vomiting, unspecified, Essential (primary) hypertension. - Condition is Stable. - Discharge Instructions: Hypertension, Nausea and Vomiting, Nausea, Adult. - Medication Reconciliation, Local Pharmacy Hours form. - Follow up: Akiko Paris; When: As needed; Reason: Continuance of care. - Problem is an ongoing problem. - Symptoms are unchanged. Historical: - Allergies: No known drug Allergies; - Home Meds: 1. Advair Diskus 250-50 mcg/dose Inhl dsdv 1 puff 2 times per day 2. Albuterol Inhl 2 puffs every 4 hours 3. aspirin 81 mg Oral tab 1 tab once daily 4. calcium 600 plus Vitamin D 400 daily 5. ibuprofen 600 mg Oral tab 1 tab every 6 hours this am 6. lisinopril 10 mg Oral tab 1 tab once daily 7. Vitamin D Oral 5000 unit daily 8. Vytorin 10-20 10-20 mg oral tab 1 tab once daily 9. Avelox 400 mg Oral tab 1 tab once daily started yesterday - PMHx: Diverticulitis; Hypercholesterolemia; Hypertension; Osteoporosis; - PSHx: Cataract Surgery- Bilateral; Hysterectomy; Cholecystectomy; - Social history: Smoking status: Patient states was never smoker of tobacco. No barriers to communication noted, The patient speaks fluent Mohawk. - Family history: Not pertinent. - : The pt / caregiver states he / she is not on anticoagulants. Home medication list is obtained from [employer] import data. - Exposure Risk Screening:: None identified. Vital Signs: 05/07 19:33 BP 176 / 79; Pulse 67; Resp 18; Temp 97.6(TE); Pulse Ox 98% on R/A; Weight 74.84 kg / kcs 164.99 lbs; Height 4 ft. 11 in. (149.86 cm); Pain 0/10; 19:45 BP 205 / 89 (auto/); mgs 19:45 Pulse 68 MON; Pulse Ox 98% ; mgs 19:46 Pulse 70 MON; Pulse Ox 97% ; mgs 19:46 BP 191 / 82 (auto/); mgs 20:15 BP 201 / 122 (auto/); mgs 20:15 Pulse 70 MON; Pulse Ox 96% ; mgs 20:20 BP 201 / 90 (auto/); mgs 20:20 Pulse 70 MON; Pulse Ox 97% ; mgs 20:45 BP 184 / 77 (auto/); mgs 20:45 Pulse 68 MON; Pulse Ox 97% ; mgs 21:15 BP 210 / 77 (auto/); mgs 21:15 Pulse 68 MON; Pulse Ox 98% ; mgs 21:24 BP 227 / 92 (auto/); mgs 21:24 Pulse 68 MON; Pulse Ox 97% ; mgs 21:28 BP 180 / 102 (man/); mgs 22:20 BP 162 / 78 (man/); mgs 22:23 Pulse 66 MON; Resp 18 S; Temp 97.7(O); Pulse Ox 97% on R/A; Pain 0/10; cln 19:33 Body Mass Index 33.33 (74.84 kg, 149.86 cm) kcs MDM: 19:23 NS 0.9% 1000 ml IV at bolus once ordered. ke 19:23 ketorolac 30 mg IVP once ordered. ke 19:23 IV Saline Lock ordered. ke 19:23 Undress patient appropriately for examination ordered. ke 19:23 Promethazine 25 mg IVP once; dilute and administer 30-60 minutes ordered. ke 19:24 Amylase Ordered. EDMS 19:24 Basic Metabolic Profile Ordered. EDMS 19:24 CBC with Diff Ordered. EDMS 19:24 Lipase Ordered. EDMS 19:24 Liver Profile Ordered. EDMS 19:24 Prothrombin Time Profile\E\INR Ordered. EDMS 19:25 Abdomen, Flat\E\Upright,PA Chest Ordered. EDMS 19:25 NOTHING BY MOUTH+DIET ordered. EDMS 19:37 BNP Ordered. EDMS 20:28 Labetalol 10 mg IVP at bolus once over 2 mins ordered. ke 20:28 Basic Metabolic Profile Reviewed. ke 20:28 CBC with Diff Reviewed. ke 20:28 Liver Profile Reviewed. ke 20:28 BNP Reviewed. ke 20:28 Amylase Reviewed. ke 20:28 Lipase Reviewed. ke 20:52 Financial registration complete. zo 21:36 Labetalol 10 mg IVP at bolus once over 2 mins ordered. mgs 22:12 [facility] Payment Agreement was scanned into [employer] and attached to record. zo 05/08 09:40 T-Sheet-- Draft Copy was scanned into [employer] and attached to record. gb Administered Medications: 05/07 19:49 Drug: ketorolac 30 mg [ketorolac 30 mg/mL (1 mL) injection solution (1 mL)] Route: IVP; mgs Site: left antecubital; 19:53 Drug: NS 0.9% 1000 ml [sodium chloride 0.9 % intravenous solution] Route: IV; Rate: mgs bolus; Site: left antecubital; 22:02 Follow up: IV Status: Completed infusion; IV Intake: 1000ml mgs 19:53 Drug: Promethazine 25 mg [promethazine 25 mg/mL injection solution (1 mL)] Route: IVP; mgs Site: left antecubital; 20:40 Drug: Labetalol 10 mg [labetalol 5 mg/mL intravenous solution (2 mL)] Route: IVP; Rate: mgs bolus; Infused Over: 2 mins; Site: left antecubital; 21:50 Drug: Labetalol 10 mg [labetalol 5 mg/mL intravenous solution (2 mL)] Route: IVP; Rate: mgs bolus; Infused Over: 2 mins; Site: left antecubital; Signatures: Dispatcher [employer] Elda Song RN RN kcs Barnhardt, Gloria, Reg Reg Negrito Jaime, WIRE DROPPER [place] Matthew, RN RN mgs The chart was reviewed and I authenticate all verbal orders and agree with the evaluation and treatment provided.Attachments: 22:12 [facility] Payment Agreement zo 05/08 09:40 T-Sheet-- Draft Copy gb Chart Complete MTDD
--- NOTE | 2016-05-09 23:33 | EDDOCDS ---
Nurse's Notes [facility] Name: Wilma Waters Age: 80 yrs Sex: Female : 1935 Arrival Date: 05/07/2016 Time: 19:15 Bed Family 1 Private MD: Akiko Paris Diagnosis: Vomiting;Nausea with vomiting, unspecified;Essential (primary) hypertension Presentation: 05/07 19:28 Presenting complaint: Patient states: she was here last night and returning because she kcs can not keep anything down - very weak. Adult Sepsis Screening: The patient does not have new or worsening altered mentation. Patient's respiratory rate is less than 22. Systolic blood pressure is greater than 100. Patient has a qSOFA score of 0- Negative Sepsis Screen. Suicide/Homicide risk assessment- the patient denies having any suicidal and/or homicidal ideations and does not present with any other emotional, behavioral or mental health complaints. Status: Patient is not a auto servicer or dependent. Transition of care: patient was not received from another setting of care. 19:28 Acuity: BHUPINDER Level 3 kcs 19:28 Method Of Arrival: Walkin/Carried/Asstd kcs Triage Assessment: 19:33 General: Appears comfortable, well developed, well nourished, well groomed, Behavior is kcs cooperative, pleasant. Pain: Denies pain. The patient is triaged at the bedside. See Assessment in Nurses Notes section of ED record. Neurological: Level of Consciousness is awake, alert. Respiratory: Airway is patent Respiratory effort is even, unlabored, Respiratory pattern is regular, symmetrical. Derm: Skin is intact, is fragile, Skin is dry, Skin is normal. Historical: - Allergies: No known drug Allergies; - Home Meds: 1. Advair Diskus 250-50 mcg/dose Inhl dsdv 1 puff 2 times per day 2. Albuterol Inhl 2 puffs every 4 hours 3. aspirin 81 mg Oral tab 1 tab once daily 4. calcium 600 plus Vitamin D 400 daily 5. ibuprofen 600 mg Oral tab 1 tab every 6 hours this am 6. lisinopril 10 mg Oral tab 1 tab once daily 7. Vitamin D Oral 5000 unit daily 8. Vytorin 10-20 10-20 mg oral tab 1 tab once daily 9. Avelox 400 mg Oral tab 1 tab once daily started yesterday - PMHx: Diverticulitis; Hypercholesterolemia; Hypertension; Osteoporosis; - PSHx: Cataract Surgery- Bilateral; Hysterectomy; Cholecystectomy; - Social history: Smoking status: Patient states was never smoker of tobacco. No barriers to communication noted, The patient speaks fluent Malagasy. - Family history: Not pertinent. - : The pt / caregiver states he / she is not on anticoagulants. Home medication list is obtained from [employer] import data. - Exposure Risk Screening:: None identified. Screenin:32 Screening information is obtained from the patient, family members. Fall risk: At risk mgs due to age, prior history of falls. Assistance ADL's: requires no assistance with activities of daily living. Abuse/DV Screen: The patient / caregiver reports he/she is: not in a situation that causes fear, pain or injury. Nutritional screening: No deficits noted. Advance Directives: Currently, there is a health care proxy, Elda Oro, daughter. There is no active DNR order. home support is adequate. Assessment: 19:52 Adult Sepsis Screening: The patient does not have new or worsening altered mentation. mgs Patient's respiratory rate is less than 22. Systolic blood pressure is greater than 100. Patient has a qSOFA score of 0- Negative Sepsis Screen. General: Appears in no apparent distress, Behavior is appropriate for age, cooperative. Neurological: Level of Consciousness is awake, alert, Oriented to person, place, time. Cardiovascular: Capillary refill < 3 seconds Heart tones S1 S2 present. Respiratory: Airway is patent Respiratory effort is even, unlabored, Respiratory pattern is regular, symmetrical, Breath sounds with rhonchi bilaterally. GI: Abdomen is flat, Bowel sounds present X 4 quads. Abd is soft and non tender X 4 quads. Derm: Skin is pink, warm & dry. 20:23 General: QMP aware of patients blood pressure. mgs 20:48 General: Appears in no apparent distress, Behavior is appropriate for age, cooperative. mgs Neurological: Level of Consciousness is awake, alert, Oriented to person, place, time. Cardiovascular: Capillary refill < 3 seconds. Respiratory: Airway is patent Respiratory effort is even, unlabored, Respiratory pattern is regular, symmetrical. Derm: Skin is pink, warm & dry. 21:28 Adult Sepsis Screening: Patient has new or worsening altered mentation (1 point). mgs Patient's respiratory rate is less than 22. Systolic blood pressure is greater than 100. Patient has a qSOFA score of 1- Negative Sepsis Screen. General: Appears in no apparent distress, Behavior is appropriate for age, cooperative. Neurological: Level of Consciousness is awake, alert. Cardiovascular: Capillary refill < 3 seconds. Respiratory: Airway is patent Respiratory effort is even, unlabored, Respiratory pattern is regular, symmetrical. Derm: Skin is pink, warm & dry. 22:30 Adult Sepsis Screening: The patient does not have new or worsening altered mentation. mgs Patient's respiratory rate is less than 22. Systolic blood pressure is greater than 100. Patient has a qSOFA score of 0- Negative Sepsis Screen. General: Appears in no apparent distress, Behavior is appropriate for age, cooperative. Neurological: Level of Consciousness is awake, alert, Oriented to person, place, time. Cardiovascular: Capillary refill < 3 seconds. Respiratory: Airway is patent Respiratory effort is even, unlabored, Respiratory pattern is regular, symmetrical. Derm: Skin is pink, warm & dry. Vital Signs: 19:33 BP 176 / 79; Pulse 67; Resp 18; Temp 97.6(TE); Pulse Ox 98% on R/A; Weight 74.84 kg; kcs Height 4 ft. 11 in. (149.86 cm); Pain 0/10; 19:45 BP 205 / 89 (auto/); mgs 19:45 Pulse 68 MON; Pulse Ox 98% ; mgs 19:46 Pulse 70 MON; Pulse Ox 97% ; mgs 19:46 BP 191 / 82 (auto/); mgs 20:15 BP 201 / 122 (auto/); mgs 20:15 Pulse 70 MON; Pulse Ox 96% ; mgs 20:20 BP 201 / 90 (auto/); mgs 20:20 Pulse 70 MON; Pulse Ox 97% ; mgs 20:45 BP 184 / 77 (auto/); mgs 20:45 Pulse 68 MON; Pulse Ox 97% ; mgs 21:15 BP 210 / 77 (auto/); mgs 21:15 Pulse 68 MON; Pulse Ox 98% ; mgs 21:24 BP 227 / 92 (auto/); mgs 21:24 Pulse 68 MON; Pulse Ox 97% ; mgs 21:28 BP 180 / 102 (man/); mgs 22:20 BP 162 / 78 (man/); mgs 22:23 Pulse 66 MON; Resp 18 S; Temp 97.7(O); Pulse Ox 97% on R/A; Pain 0/10; cln 19:33 Body Mass Index 33.33 (74.84 kg, 149.86 cm) [facility] Vitals: 19:16 Log In Time: May 07, 2016 at 19:16. RN notified that patient meets Red Flag gr2 criteria. ED Course: 19:16 Patient visited by Donald Shahid. gr2 19:16 Akiko Paris is Private Physician. gr2 19:16 Patient moved to Waiting gr2 19:17 Patient visited by Donald Shahid. gr2 19:17 Patient moved to 13 gr2 19:21 Negrito Apple F[facility] is [facility]. ke 19:21 Patient visited by Negrito Apple FNP. ke 19:21 Patient visited by Negrito Apple FNP. ke 19:30 Triage Initiated kcs 19:33 Jean Bojorquez,NICCI is Primary Nurse. mgs 19:42 BNP Sent. mk4 19:42 Amylase Sent. mk4 19:42 Basic Metabolic Profile Sent. mk4 19:42 CBC with Diff Sent. mk4 19:42 Lipase Sent. mk4 19:42 Liver Profile Sent. mk4 19:42 Prothrombin Time Profile\E\INR Sent. mk4 19:52 Patient visited by Negrito Apple FNP. ke 19:53 Patient visited by Jean Bojorquez RN. mgs 20:05 Patient moved to Radiology kenneth 20:09 Patient moved to 13 kenneth 20:27 Patient visited by Negrito Apple FNP. ke 20:49 Patient visited by Jean Bojorquez RN. mgs 21:17 Patient visited by Negrito Apple FNP. ke 21:29 Patient visited by Jean Bojorquez RN. mgs 21:52 Patient visited by Negrito Apple FNP. ke 22:12 [facility] [place] Payment Agreement was scanned into [employer] and attached to record. zo 22:20 Patient visited by Jean Bojorquez RN. mgs 22:21 Akiko Paris is Referral Physician. ke 22:24 Patient visited by Monique Hernandes, RIG MANAGER. cln 22:30 Discontinued IV lock intact, bleeding controlled, pressure dressing applied, No mgs redness/swelling at site. No procedures done that require assistance. 22:32 Patient moved to Family Apr 22:32 The patient / caregiver is instructed regarding the plan of care and ED course. mgs 05/08 09:23 Abdomen, Flat\E\Upright,PA Chest Returned. EDMS 09:40 T-Sheet-- Draft Copy was scanned into [employer] and attached to record. gb Administered Medications: 05/07 19:49 Drug: ketorolac 30 mg [ketorolac 30 mg/mL (1 mL) injection solution (1 mL)] Route: IVP; mgs Site: left antecubital; 19:53 Drug: NS 0.9% 1000 ml [sodium chloride 0.9 % intravenous solution] Route: IV; Rate: mgs bolus; Site: left antecubital; 22:02 Follow up: IV Status: Completed infusion; IV Intake: 1000ml mgs 19:53 Drug: Promethazine 25 mg [promethazine 25 mg/mL injection solution (1 mL)] Route: IVP; mgs Site: left antecubital; 20:40 Drug: Labetalol 10 mg [labetalol 5 mg/mL intravenous solution (2 mL)] Route: IVP; Rate: mgs bolus; Infused Over: 2 mins; Site: left antecubital; 21:50 Drug: Labetalol 10 mg [labetalol 5 mg/mL intravenous solution (2 mL)] Route: IVP; Rate: mgs bolus; Infused Over: 2 mins; Site: left antecubital; Intake: 22:02 IV: 1000.00ml; Total: 1000.00ml. mgs Order Results: Lab Order: Amylase; SPEC'M 05/07/16 19:37 Test: AMYLASE; Value: 47; Range: 25-115; Units: U/L; Status: F Lab Order: Basic Metabolic Profile; SPEC'M 05/07/16 19:37 Test: GLUCOSE, FASTING; Value: 102; Range: 83-110; Units: MG/DL; Status: F Test: BLOOD UREA NITROGEN; Value: 8; Range: 7-18; Units: MG/DL; Status: F Test: CREATININE FOR GFR; Value: 0.80; Range: 0.55-1.02; Units: MG/DL; Status: F Test: GLOMERULAR FILTRATION RATE; Value: > 60.0; Range: >32; Status: F Test: SODIUM LEVEL; Value: 129; Range: 136-145; Abnormal: Below low normal; Units: MEQ/L; Status: F Test: POTASSIUM SERUM; Value: 3.9; Range: 3.5-5.1; Units: MEQ/L; Status: F Test: CHLORIDE LEVEL; Value: 91; Range: 98-107; Abnormal: Below low normal; Units: MEQ/L; Status: F Test: CARBON DIOXIDE LEVEL; Value: 28; Range: 21-32; Units: MEQ/L; Status: F Test: ANION GAP; Value: 10; Range: 8-16; Units: MEQ/L; Status: F Test: CALCIUM LEVEL; Value: 8.6; Range: 8.8-10.2; Abnormal: Below low normal; Units: MG/DL; Status: F Test Note: ; Units are mL/min/1.73 m2 Chronic Kidney Disease Staging per NKF: Stage I & II GFR >=60 Normal to Mildly Decreased Stage III GFR 30-59 Moderately Decreased Stage IV GFR 15-29 Severely Decreased Stage V GFR <15 Very Little GFR Left ESRD GFR <15 on TABLE WORKER PACKAGER Lab Order: CBC with Diff; SPEC'M 05/07/16 19:37 Test: WHITE BLOOD COUNT; Value: 5.1; Range: 4.0-10.0; Units: K/mm3; Status: F Test: RED BLOOD COUNT; Value: 4.54; Range: 4.00-5.40; Units: M/mm3; Status: F Test: HEMOGLOBIN; Value: 13.1; Range: 12.0-16.0; Units: g/dl; Status: F Test: HEMATOCRIT; Value: 37.7; Range: 36.0-47.0; Units: %; Status: F Test: MEAN CORPUSCULAR VOLUME; Value: 83.0; Range: 80.0-96.0; Units: fl; Status: F Test: MEAN CORPUSCULAR HEMOGLOBIN; Value: 28.8; Range: 27.0-33.0; Units: pg; Status: F Test: MEAN CORPUSCULAR HGB CONC; Value: 34.7; Range: 32.0-36.5; Units: g/dl; Status: F Test: RED CELL DISTRIBUTION WIDTH; Value: 13.1; Range: 11.5-14.5; Units: %; Status: F Test: PLATELET COUNT, AUTOMATED; Value: 238; Range: 150-450; Units: k/mm3; Status: F Test: NEUTROPHILS %; Value: 77.0; Range: 36.0-66.0; Abnormal: Above high normal; Units: %; Status: F Test: LYMPH %; Value: 13.7; Range: 24.0-44.0; Abnormal: Below low normal; Units: %; Status: F Test: MONO %; Value: 5.3; Range: 0.0-5.0; Abnormal: Above high normal; Units: %; Status: F Test: EOS %; Value: 1.5; Range: 0.0-3.0; Units: %; Status: F Test: BASO %; Value: 1.0; Range: 0.0-1.0; Units: %; Status: F Test: LARGE UNSTAINED CELL %; Value: 1.4; Range: 0.0-4.0; Units: %; Status: F Test: NEUTROPHILS #; Value: 4.0; Range: 1.8-7.7; Units: K/mm3; Status: F Test: LYMPH #; Value: 0.8; Range: 1.5-4.5; Abnormal: Below low normal; Units: K/mm3; Status: F Test: MONO #; Value: 0.3; Range: 0.0-0.8; Units: K/mm3; Status: F Test: EOS #; Value: 0.1; Range: 0.0-0.50; Units: K/mm3; Status: F Test: BASO #; Value: 0.0; Range: 0.0-0.2; Units: K/mm3; Status: F Test: LARGE UNSTAINED CELL #; Value: 0.1; Range: 0.0-0.4; Units: K/mm3; Status: F Lab Order: Lipase; SPEC' 05/07/16 19:37 Test: LIPASE; Value: 92; Range: 73-393; Units: U/L; Status: F Lab Order: Liver Profile; SPEC' 05/07/16 19:37 Test: AST/SGOT; Value: 20; Range: 15-37; Units: U/L; Status: F Test: ALT/SGPT; Value: 16; Range: 12-78; Units: U/L; Status: F Test: ALKALINE PHOSPHATASE; Value: 89; Range: 45-117; Units: U/L; Status: F Test: BILIRUBIN,TOTAL; Value: 0.4; Range: 0.2-1.0; Units: MG/DL; Status: F Test: BILIRUBIN,DIRECT; Value: 0.1; Range: 0.0-0.2; Units: MG/DL; Status: F Test: TOTAL PROTEIN; Value: 6.0; Range: 6.4-8.2; Abnormal: Below low normal; Units: GM/DL; Status: F Test: ALBUMIN; Value: 3.3; Range: 3.2-5.2; Units: GM/DL; Status: F Test: ALBUMIN/GLOBULIN RATIO; Value: 1.22; Range: 1.00-1.93; Status: F Lab Order: Prothrombin Time Profile\E\INR; SPEC'M 05/07/16 20:31 Test: PROTHROMBIN TIME; Value: 13.1; Range: 12.3-14.5; Units: SECONDS; Status: F Test: INR; Value: 0.98; Status: F Test Note: ; THERAPUTIC HUMAN INR VALUES INDICATIONS NORMAL RANGES PROPHYLAXIS/TREATMENT OF: VENOUS THROMBOSIS 2.0-3.0 PULMONARY EMBOLISM 2.0-3.0 PREVENTION OF SYSTEMIC EMBOLISM FROM: TISSUE HEART VALVES 2.0-3.0 ACUTE MYOCARDIAL INFARCTION 2.0-3.0 VALVULAR HEART DISEASE 2.0-3.0 ATRIAL FIBRILLATION 2.0-3.0 MECHANICAL VALVES(HIGH RISK) 2.5-3.5 RECURRENT MYOCARDIAL INFARCTION 2.5-3.5 Lab Order: BNP; SPEC'M 05/07/16 19:37 Test: BRAIN NATRIURETIC PEPTIDE; Value: 240; Range: <100; Abnormal: Above high normal; Units: PG/ML; Status: F Radiology Order: Abdomen, Flat\E\Upright,PA Chest Test: Abdomen, Flat\E\Upright,PA Chest REASON FOR EXAMINATION: Abdomen Pain; Abdomen series: Three views.; ; History: Abdominal pain.; ; Finding: Supine chest radiograph is unremarkable. There is no evidence of; infiltrate. Heart is not felt to be enlarged. Pulmonary vasculature is not; increased.; ; Supine and cross-table lateral views of the abdomen show no evidence of free air.; There is some vascular calcification in a normal caliber aorta. There are clips; in right upper quadrant post cholecystectomy. Degenerative disc changes are seen; along with osteoarthritic facet changes in the lumbar spine. Flank stripes are; intact. Psoas margins are symmetric. Bowel gas pattern is unremarkable.; ; Impression:; ; No acute disease seen.; ; ; Signed by; Gael Sharma MD 05/08/2016 12:30 P; Outcome: 22:21 Discharge ordered by Provider. ke 22:31 Discharge Assessment: Patient awake, alert and oriented x 3. No cognitive and/or mgs functional deficits noted. Patient verbalized understanding of disposition instructions. patient administered narcotics - no. The following High Risk Discharge criteria are identified: None. Condition: stable. Discharge instructions given to patient, family, Instructed on discharge instructions, follow up and referral plans. Demonstrated understanding of instructions, Pt was receptive of discharge instructions/ teaching. No special radiology studies were completed. Property sent home with patient. 22:32 Patient left the ED. mgs Signatures: Dispatcher [employer] EDMS Elda Oro, RN RN Uzma Tinoco RN RN jan Bartlett, Floyd fab Barnhardt, Gloria, Edison Reg Negrito Jaime, RESEARCH PROFESSIONAL RESEARCH PROFESSIONAL Jesus Richardson Gainslee gr2 Ankita Tellez RN RN mk4 Jean Bojorquez RN RN mgs Monique Hernandes, MIKLE RIG MANAGER cln Chart Complete MTDD
--- NOTE | 2016-05-09 23:33 | EDDOCDS ---
Physician Documentation [facility] Name: Wilma Waters Age: 80 yrs Sex: Female : 1935 Arrival Date: 05/07/2016 Time: 19:15 Bed Family 1 Private MD: Akiko Paris Disposition: 05/07/16 22:21 Discharged to Home/Self Care. Impression: Vomiting, Nausea with vomiting, unspecified, Essential (primary) hypertension. - Condition is Stable. - Discharge Instructions: Hypertension, Nausea and Vomiting, Nausea, Adult. - Medication Reconciliation, Local Pharmacy Hours form. - Follow up: Akiko Paris; When: As needed; Reason: Continuance of care. - Problem is an ongoing problem. - Symptoms are unchanged. Historical: - Allergies: No known drug Allergies; - Home Meds: 1. Advair Diskus 250-50 mcg/dose Inhl dsdv 1 puff 2 times per day 2. Albuterol Inhl 2 puffs every 4 hours 3. aspirin 81 mg Oral tab 1 tab once daily 4. calcium 600 plus Vitamin D 400 daily 5. ibuprofen 600 mg Oral tab 1 tab every 6 hours this am 6. lisinopril 10 mg Oral tab 1 tab once daily 7. Vitamin D Oral 5000 unit daily 8. Vytorin 10-20 10-20 mg oral tab 1 tab once daily 9. Avelox 400 mg Oral tab 1 tab once daily started yesterday - PMHx: Diverticulitis; Hypercholesterolemia; Hypertension; Osteoporosis; - PSHx: Cataract Surgery- Bilateral; Hysterectomy; Cholecystectomy; - Social history: Smoking status: Patient states was never smoker of tobacco. No barriers to communication noted, The patient speaks fluent Amharic. - Family history: Not pertinent. - : The pt / caregiver states he / she is not on anticoagulants. Home medication list is obtained from [employer] import data. - Exposure Risk Screening:: None identified. Vital Signs: 05/07 19:33 BP 176 / 79; Pulse 67; Resp 18; Temp 97.6(TE); Pulse Ox 98% on R/A; Weight 74.84 kg / kcs 164.99 lbs; Height 4 ft. 11 in. (149.86 cm); Pain 0/10; 19:45 BP 205 / 89 (auto/); mgs 19:45 Pulse 68 MON; Pulse Ox 98% ; mgs 19:46 Pulse 70 MON; Pulse Ox 97% ; mgs 19:46 BP 191 / 82 (auto/); mgs 20:15 BP 201 / 122 (auto/); mgs 20:15 Pulse 70 MON; Pulse Ox 96% ; mgs 20:20 BP 201 / 90 (auto/); mgs 20:20 Pulse 70 MON; Pulse Ox 97% ; mgs 20:45 BP 184 / 77 (auto/); mgs 20:45 Pulse 68 MON; Pulse Ox 97% ; mgs 21:15 BP 210 / 77 (auto/); mgs 21:15 Pulse 68 MON; Pulse Ox 98% ; mgs 21:24 BP 227 / 92 (auto/); mgs 21:24 Pulse 68 MON; Pulse Ox 97% ; mgs 21:28 BP 180 / 102 (man/); mgs 22:20 BP 162 / 78 (man/); mgs 22:23 Pulse 66 MON; Resp 18 S; Temp 97.7(O); Pulse Ox 97% on R/A; Pain 0/10; cln 19:33 Body Mass Index 33.33 (74.84 kg, 149.86 cm) kcs MDM: 19:23 NS 0.9% 1000 ml IV at bolus once ordered. ke 19:23 ketorolac 30 mg IVP once ordered. ke 19:23 IV Saline Lock ordered. ke 19:23 Undress patient appropriately for examination ordered. ke 19:23 Promethazine 25 mg IVP once; dilute and administer 30-60 minutes ordered. ke 19:24 Amylase Ordered. EDMS 19:24 Basic Metabolic Profile Ordered. EDMS 19:24 CBC with Diff Ordered. EDMS 19:24 Lipase Ordered. EDMS 19:24 Liver Profile Ordered. EDMS 19:24 Prothrombin Time Profile\E\INR Ordered. EDMS 19:25 Abdomen, Flat\E\Upright,PA Chest Ordered. EDMS 19:25 NOTHING BY MOUTH+DIET ordered. EDMS 19:37 BNP Ordered. EDMS 20:28 Labetalol 10 mg IVP at bolus once over 2 mins ordered. ke 20:28 Basic Metabolic Profile Reviewed. ke 20:28 CBC with Diff Reviewed. ke 20:28 Liver Profile Reviewed. ke 20:28 BNP Reviewed. ke 20:28 Amylase Reviewed. ke 20:28 Lipase Reviewed. ke 20:52 Financial registration complete. zo 21:36 Labetalol 10 mg IVP at bolus once over 2 mins ordered. mgs 22:12 [facility] Payment Agreement was scanned into [email or web address] and attached to record. zo 05/08 09:40 T-Sheet-- Draft Copy was scanned into [email or web address] and attached to record. gb Administered Medications: 05/07 19:49 Drug: ketorolac 30 mg [ketorolac 30 mg/mL (1 mL) injection solution (1 mL)] Route: IVP; mgs Site: left antecubital; 19:53 Drug: NS 0.9% 1000 ml [sodium chloride 0.9 % intravenous solution] Route: IV; Rate: mgs bolus; Site: left antecubital; 22:02 Follow up: IV Status: Completed infusion; IV Intake: 1000ml mgs 19:53 Drug: Promethazine 25 mg [promethazine 25 mg/mL injection solution (1 mL)] Route: IVP; mgs Site: left antecubital; 20:40 Drug: Labetalol 10 mg [labetalol 5 mg/mL intravenous solution (2 mL)] Route: IVP; Rate: mgs bolus; Infused Over: 2 mins; Site: left antecubital; 21:50 Drug: Labetalol 10 mg [labetalol 5 mg/mL intravenous solution (2 mL)] Route: IVP; Rate: mgs bolus; Infused Over: 2 mins; Site: left antecubital; Signatures: Dispatcher [email or web address] Elda Song RN RN kcs Barnhardt, Gloria, Reg Reg Negrito Jaime, EGG BREAKING MACHINE OPERATOR Jesus Milsl Matthew, RN RN mgs The chart was reviewed and I authenticate all verbal orders and agree with the evaluation and treatment provided.Attachments: 22:12 [facility] Payment Agreement zo 05/08 09:40 T-Sheet-- Draft Copy gb Chart Complete MTDD
== END 2016-05-07 22:32 | disposition home or self-care (01) ==
LOC: M ED 19:15
DX: E87.1 Hypo-osmolality and hyponatremia (principal); I10 Essential (primary) hypertension; R11.10 Vomiting, unspecified; E78.00 Pure hypercholesterolemia, unspecified; M81.0 Age-related osteoporosis without current pathological fracture; Z90.49 Acquired absence of other specified parts of digestive tract; Z90.79 Acquired absence of other genital organ(s); Z79.82 Long term (current) use of aspirin; Z79.51 Long term (current) use of inhaled steroids; Z79.899 Other long term (current) drug therapy
CPT/HCPCS: 74022; 80048; 80076; 82150; 83690; 83880; 85025; 85610; 96361; 96374; 96375; 96376; 99284; J1885

== ENCOUNTER → 2017-03-04 | Outpatient (REF) | payer MEDICARE, OTHER ==
[2017-03-04 20:11] LABS: CORTISOL AM 19.7 UG/DL (4.3-22.4); PROLACTIN 1.2 NG/ML
[2017-03-04 20:12] LABS: FOLLICLE STIMULATING HORMONE 45.3 mIU/mL; LUTEINIZING HORMONE 19.6 mIU/mL
== END ==
LOC: M LAB REF 13:29
PROVIDERS: ATTEND Internal Medicine
DX: E23.6 Other disorders of pituitary gland (principal)

== ENCOUNTER → 2017-08-05 | Outpatient (CLI) | payer MEDICARE, BC | LOC: M WHC 13:41 | DX: M81.0 Age-related osteoporosis without current pathological fracture (principal) | CPT/HCPCS: 77080 ==

== ENCOUNTER → 2018-02-04 | Outpatient (REF) | payer MEDICARE, OTHER ==
[2018-02-04 18:29] LABS: RHEUMATOID FACTOR QUANT < 10.0 IU/ML (<15.0)
[2018-02-04 18:29] LABS: C REACTIVE PROTEIN QUANTITATIV 1.29 MG/DL (0.00-0.30)
[2018-02-06 14:15] LABS: ANTINUCLEAR ANTIBODIES DIRECT Negative (Negative)
== END ==
LOC: M LAB REF 17:41
DX: M25.50 Pain in unspecified joint (principal)
CPT/HCPCS: 86140

== ENCOUNTER → 2018-09-16 | Outpatient (REF) | payer MEDICARE, OTHER ==
[2018-09-16 13:45] LABS: ALBUMIN 3.7 GM/DL (3.2-5.2); BLOOD UREA NITROGEN 11 MG/DL (7-18); CALCIUM LEVEL 9.6 MG/DL (8.8-10.2); CARBON DIOXIDE LEVEL 28 MEQ/L (21-32); CHLORIDE LEVEL 91 MEQ/L (98-107); CREATININE FOR GFR 0.83 MG/DL (0.55-1.30); GLOMERULAR FILTRATION RATE > 60.0 (>32); GLUCOSE, FASTING 101 MG/DL (70-100); PHOSPHORUS LEVEL 3.1 MG/DL (2.5-4.9); POTASSIUM SERUM 4.5 MEQ/L (3.5-5.1); SODIUM LEVEL 129 MEQ/L (136-145)
[2018-09-16 14:32] LABS: CREATININE, URINE 41.8 MG/DL; MALB URINE SIEMENS 8.8 MG/L
== END ==
LOC: M LABDRWAD 12:22
PROVIDERS: ATTEND Internal Medicine Cardiovascular Disease
DX: I10 Essential (primary) hypertension (principal)

== ENCOUNTER 2018-09-23 15:28 | Inpatient (IN) | payer MEDICARE, OTHER ==
[~2018-09-23] VITALS: Ht 149.9 cm; Wt 74.0 kg
[2018-09-23] MEDS ORDERED: INDA125TA PO (16:02)
[2018-09-23] MEDS ORDERED: REFR1DRO8 OU (16:02)
[2018-09-23] MEDS ORDERED: TIMO0.5S29 OU (16:02)
[2018-09-23] MEDS ORDERED: VALS1TAB68 PO (16:02)
[2018-09-23] MEDS ORDERED: GENT0.3G OU (16:02)
[2018-09-23] MEDS ORDERED: AMLO5TAB6 PO (16:02)
[2018-09-23] MEDS ORDERED: TRAV04OPD OU (16:02)
[2018-09-23] MEDS ORDERED: MULT1TAB8 PO (16:02)
[2018-09-23] MEDS ORDERED: EZET1TAB4 PO (16:02)
[2018-09-23] MEDS ORDERED: ADV250INH INH (16:02)
[2018-09-23] MEDS ORDERED: SM G150T PO (16:05)
[2018-09-23] MEDS ORDERED: FIBE625T PO (16:05)
[2018-09-23] MEDS ORDERED: VENTAER INH ×2 (16:05→18:02)
[2018-09-23] MEDS ORDERED: COQ-100C5 PO (16:05)
[2018-09-23] MEDS ORDERED: D3 U5000 PO (16:05)
[2018-09-23 16:07] LABS: BASO # 0.1 10^3/uL (0.0-0.2); BASO % 0.8 % (0.0-1.0); EOS # 0.7 10^3/uL (0.0-0.50); EOS % 9.3 % (0.0-3.0); HEMATOCRIT 41.8 % (36.0-47.0); HEMOGLOBIN 14.6 g/dl (12.0-15.5); LYMPH # 1.4 10^3/uL (1.5-4.5); LYMPH % 17.4 % (24.0-44.0); MEAN CORPUSCULAR HEMOGLOBIN 29.3 pg (27.0-33.0); MEAN CORPUSCULAR HGB CONC 34.9 g/dl (32.0-36.5); MEAN CORPUSCULAR VOLUME 83.9 fl (80.0-96.0); MONO # 0.5 10^3/uL (0.0-0.8); NEUTROPHILS # 5.1 10^3/uL (1.8-7.7); NEUTROPHILS % 65.2 % (36.0-66.0); PLATELET COUNT, AUTOMATED 414 10^3/uL (150-450); RED BLOOD COUNT 4.98 10^6/uL (4.00-5.40); WHITE BLOOD COUNT 7.8 10^3/uL (4.0-10.0)
[2018-09-23 16:15] LABS: INR 0.97
[2018-09-23 16:16] LABS: PARTIAL THROMBOPLASTIN TIME 34.5 SECONDS (25.4-37.6)
--- NOTE | 2018-09-23 16:26 | REP ---
Portable chest, 07/1969, single AP view with the patient sitting: Comparison is the portable chest dated 04/16/2016. At the lung thorne are clear. The cardiac size is normal. The leanne, mediastinum, and skeletal structures are unremarkable. Impression: Negative portable chest. There is no interval change. Electronically Signed by Dudley Cerna MD 09/23/2018 04:17 P
[2018-09-23 16:32] LABS: ALBUMIN 3.7 GM/DL (3.2-5.2); ALT/SGPT 32 U/L (12-78); BILIRUBIN,DIRECT 0.2 MG/DL (0.0-0.2); BILIRUBIN,TOTAL 0.5 MG/DL (0.2-1.0); BLOOD UREA NITROGEN 22 MG/DL (7-18); CALCIUM LEVEL 10.3 MG/DL (8.8-10.2); CARBON DIOXIDE LEVEL 27 MEQ/L (21-32); CHLORIDE LEVEL 87 MEQ/L (98-107); CK-MB VALUE MASS 1.3 NG/ML (<3.6); CPK CREATINE PHOSPHOKINASE 70 U/L (26-192); CREATININE FOR GFR 0.88 MG/DL (0.55-1.30); GLOMERULAR FILTRATION RATE > 60.0 (>32); GLUCOSE, FASTING 104 MG/DL (70-100); MB/CK RELATIVE INDEX 1.86 (< OR =4); POTASSIUM SERUM 4.7 MEQ/L (3.5-5.1); SODIUM LEVEL 124 MEQ/L (136-145); TOTAL PROTEIN 7.1 GM/DL (6.4-8.2); TROPONIN I < 0.02 NG/ML (< 0.10)
[2018-09-23] MEDS ORDERED: CARVedilol 3.125 MG TAB PO ONE (17:30)
[2018-09-23] MEDS ORDERED: amLODIPine 5 MG TAB PO ONE (17:30)
[2018-09-23] MEDS ORDERED: ALEV220T22 PO (18:02)
[2018-09-23] MEDS ORDERED: COQ1200C PO (18:02)
[2018-09-23] MEDS ORDERED: ECOT81TA5 PO (18:02)
[2018-09-23] MEDS ORDERED: ONDANSETRON 4MG/2ML VIAL (J2405) IV ONE (18:30)
[2018-09-23] MEDS ORDERED: **hydrALAZINE** 10 MG TAB PO PRN (18:30)
[2018-09-23] MEDS ORDERED: NITROGLYCERIN 2% OINT 1 GM *U/D* PKT TOP PRN (18:30)
[2018-09-23] MEDS ORDERED: ACETAMINOPHEN TAB 650MG DOSE (2X325MG) PO ONE (18:30)
[2018-09-23] MEDS ORDERED: POLYVINYL ALCOHOL OPHTH SOLN 15 ML(LIQUITEARS) OU PRN (18:30)
--- NOTE | 2018-09-23 18:36 | REP ---
CT brain without contrast: History: CVA. No comparison CT study. Findings: Preliminary digital clinical laboratory aides teacher radiograph is unremarkable. There is mild vascular calcification. No bony calvarial lesion is seen. Visualized paranasal sinuses are clear. On soft-tissue window settings, there is no evidence of intracranial hemorrhage. No infarct, mass, extra-axial fluid collection, or midline shift is seen. There is minimal diffuse atrophy. Impression: There is minimal diffuse cerebral atrophy and vascular calcification. Otherwise negative. No acute intracranial lesion. Electronically Signed by Gael Sharma MD 09/24/2018 07:56 A
[2018-09-23] MEDS ORDERED: PROHANCE 279.3MG/ML 15ML VIAL (A9576) As Ordered ONE (19:20)
[2018-09-23] MEDS ORDERED: PROHANCE 279.3MG/ML 5ML VIAL (A9576) As Ordered ONE (19:20)
--- NOTE | 2018-09-23 19:23 | ECGEPIP ---
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
--- NOTE | 2018-09-23 20:17 | REPVR ---
EXAM: MR Angiogram Head Without Contrast, Arteries EXAM DATE/TIME: 09/23/2018 6:59 PM CLINICAL HISTORY: 82 years old, female; Patient HX: Left arm numbness, nausea; Additional info: TIA TECHNIQUE: Imaging protocol: MR angiogram head without contrast. Exam focused on the arteries. COMPARISON: CT Head without contrast 09/23/2018 3:55 PM FINDINGS: Right internal carotid artery: Unremarkable. Intracranial segment is patent with no significant stenosis. No aneurysm. Right anterior cerebral artery: Unremarkable. No occlusion or significant stenosis. No aneurysm. Right middle cerebral artery: Unremarkable. No occlusion or significant stenosis. No aneurysm. Right posterior cerebral artery: Persistent origin of the right posterior cerebral artery. Right vertebral artery: Unremarkable. No occlusion or significant stenosis. No aneurysm. Left internal carotid artery: Unremarkable. Intracranial segment is patent with no significant stenosis. No aneurysm. Left anterior cerebral artery: Unremarkable. No occlusion or significant stenosis. No aneurysm. Left middle cerebral artery: Unremarkable. No occlusion or significant stenosis. No aneurysm. Left posterior cerebral artery: Unremarkable. No occlusion or significant stenosis. No aneurysm. Left vertebral artery: Unremarkable. No occlusion or significant stenosis. No aneurysm. Basilar artery: Unremarkable. No occlusion or significant stenosis. No aneurysm. Other vasculature: Dual left posterior cerebral arteries originating from the basilar and internal carotid arteries. IMPRESSION: No significant stenosis, occlusion, or other findings. Electronically signed by: Kemal Stovall On 09/23/2018 20:16:59 PM
--- NOTE | 2018-09-23 20:20 | REPVR ---
EXAM: MR Head Without Contrast EXAM DATE/TIME: 09/23/2018 6:59 PM CLINICAL HISTORY: 82 years old, female; Numbness / parasthesia; Patient HX: Left arm numbness, nausea; Additional info: TIA TECHNIQUE: Imaging protocol: MR of the head without contrast. COMPARISON: MRA BRAIN W/O CONTRAST 09/23/2018 6:48 PM FINDINGS: Brain: Multiple foci of T2 lengthening are demonstrated in the periventricular and centrum semiovale white matter consistent with age-related small vessel gliosis. Mild parenchymal volume loss most consistent with patient age. Ventricles: The degree of ventricular dilatation is normal for age. No pathologic enlargement demonstrated. Bones/joints: Unremarkable. Soft tissues: Normal. Sinuses: Mild inflammatory changes in the ethmoid sinuses. Mastoid air cells: Normal as visualized. No mastoid effusion. Orbits: Unremarkable. IMPRESSION: Multiple foci of T2 lengthening are demonstrated in the periventricular and centrum semiovale white matter consistent with age-related small vessel gliosis. Electronically signed by: Kemal Stovall On 09/23/2018 20:20:26 PM
--- NOTE | 2018-09-23 20:25 | REPVR ---
EXAM: MR Angiography Neck Without and With Contrast EXAM DATE/TIME: 09/23/2018 7:42 PM CLINICAL HISTORY: 82 years old, female; Patient HX: Numbness lt arm, nausea; Additional info: TIA TECHNIQUE: Imaging protocol: Magnetic resonance angiography images of the neck without and with intravenous contrast. Contrast material: PROHANCE; Contrast volume: 25 ml; Contrast route: IV; COMPARISON: MRA BRAIN W/O CONTRAST 09/23/2018 6:48 PM FINDINGS: Right common carotid artery: Normal. No stenosis. No dissection or occlusion. Right internal carotid artery: There is mild atherosclerotic changes in the proximal right ICA estimated at less than 50 % narrowing which is consistent with a mild stenosis using NASCET criteria. Right external carotid artery: Normal. No stenosis. No dissection or occlusion. Right vertebral artery: Normal. No stenosis. No dissection or occlusion. Left common carotid artery: Normal. No stenosis. No dissection or occlusion. Left internal carotid artery: There is moderate atherosclerotic changes in the proximal left ICA estimated at 50-60% narrowing which is consistent with a moderate stenosis using NASCET criteria. Left external carotid artery: Normal. No stenosis. No dissection or occlusion. Left vertebral artery: Normal. No stenosis. No dissection or occlusion. IMPRESSION: 1. There is mild atherosclerotic changes in the proximal right ICA estimated at less than 50 % narrowing which is consistent with a mild stenosis using NASCET criteria. 2. There is moderate atherosclerotic changes in the proximal left ICA estimated at 50-60% narrowing which is consistent with a moderate stenosis using NASCET criteria. COMMENT: Reference per NASCET criteria for degree of stenosis: Mild: less than 50% stenosis. Moderate: 50-69% stenosis. Severe: 70-94% stenosis. Near occlusion: 95-99% stenosis. Electronically signed by: Kemal Stovall On 09/23/2018 20:25:35 PM
[2018-09-23] MEDS: FUROSEMIDE 20 MG/2 ML VIAL (J1940) IV SCH (20:47)
[2018-09-23] MEDS ORDERED: VALSARTAN 80 MG TAB (DIOVAN) PO SCH (21:00)
[2018-09-23] MEDS ORDERED: ONDANSETRON 4MG/2ML VIAL (J2405) IV PRN (21:00)
[2018-09-23] MEDS ORDERED: amLODIPine 5 MG TAB PO SCH (21:00)
[2018-09-23] MEDS ORDERED: CARVedilol 3.125 MG TAB PO SCH ×2 (21:00→23:59)
[2018-09-23] MEDS ORDERED: KETOROLAC 30 MG/ML VIAL (J1885) IV ONE (21:00)
[2018-09-23] MEDS ORDERED: METOCLOPRAMIDE INJ 10MG/2ML VIAL (J2765) IV PRN (21:45)
[2018-09-23] MEDS: TIMOLOL MALEATE 0.5% OPHTH SOLN 5 ML OU SCH (22:43)
[2018-09-23] MEDS: LATANOPROST 0.005% OPHTH SOLN 2.5 ML OU SCH (22:43)
[2018-09-23 22:55] VITALS: BP 153/66
[2018-09-23] MEDS: HEPARIN SOD (PORCINE) 5000 UNITS/ML VIAL SC SCH (23:03)
[2018-09-23 23:27] LABS: BLOOD UREA NITROGEN 21 MG/DL (7-18); CALCIUM LEVEL 9.9 MG/DL (8.8-10.2); CARBON DIOXIDE LEVEL 27 MEQ/L (21-32); CHLORIDE LEVEL 85 MEQ/L (98-107); CREATININE FOR GFR 0.86 MG/DL (0.55-1.30); GLOMERULAR FILTRATION RATE > 60.0 (>32); GLUCOSE, FASTING 118 MG/DL (70-100); POTASSIUM SERUM 4.2 MEQ/L (3.5-5.1); SODIUM LEVEL 122 MEQ/L (136-145); TROPONIN I < 0.02 NG/ML (< 0.10)
[2018-09-24] VITALS (7 sets, daily range): BP systolic 118–159; BP diastolic 55–73
[2018-09-24 05:32] LABS: HEMATOCRIT 35.6 % (36.0-47.0); HEMOGLOBIN 12.7 g/dl (12.0-15.5); MEAN CORPUSCULAR HGB CONC 35.7 g/dl (32.0-36.5); MEAN CORPUSCULAR VOLUME 81.3 fl (80.0-96.0); PLATELET COUNT, AUTOMATED 365 10^3/uL (150-450); RED BLOOD COUNT 4.38 10^6/uL (4.00-5.40); WHITE BLOOD COUNT 8.2 10^3/uL (4.0-10.0)
[2018-09-24 06:01] LABS: BLOOD UREA NITROGEN 23 MG/DL (7-18); CALCIUM LEVEL 8.8 MG/DL (8.8-10.2); CARBON DIOXIDE LEVEL 28 MEQ/L (21-32); CHLORIDE LEVEL 85 MEQ/L (98-107); CREATININE FOR GFR 1.04 MG/DL (0.55-1.30); GLUCOSE, FASTING 102 MG/DL (70-100); MAGNESIUM LEVEL 1.6 MG/DL (1.8-2.4); POTASSIUM SERUM 3.8 MEQ/L (3.5-5.1); SODIUM LEVEL 121 MEQ/L (136-145); TROPONIN I < 0.02 NG/ML (< 0.10)
[2018-09-24] MEDS: FUROSEMIDE 20 MG/2 ML VIAL (J1940) IV SCH (06:01)
[2018-09-24] MEDS: HEPARIN SOD (PORCINE) 5000 UNITS/ML VIAL SC SCH ×3 (06:01→22:02)
--- NOTE | 2018-09-24 07:23 | HPEPDOC ---
General Date of Admission 09/23/18 Date of Service: Sep 23, 2018 Primary Care Physician: Akiko Quintanilla Attending Physician: KATHIA SAUNDERS DO Chief Complaint The patient is a 82-year-old female admitted with a reason for visit of Left Arm Numbness, Htn. Source: Patient Exam Limitations: No limitations Timing/Duration: Momentarily (10 minutes) Severity: Mild Associated Symptoms: Other (parathesia to left upper extremity x 10 minutes) History of Present Illness 82 yo female with history of HTN presented to ED with 10 minutes of parathesia to LUE which resolved. States started today, exacerbated by nothing. improved spontaneously after 10 minutes. States saw cardiology last week and BP medications adjusted. Since then patient states unable to control BP. She states cardizem changed to norvasc and changes to losartan and water pill. The was no associated TRENT, vision changes associated with the left arm parathesia. Home Medications Scheduled Amlodipine Besylate (Amlodipine Besylate) 5 Mg Tablet, 5 MG PO DAILY, (Reported) Aspirin (Ecotrin) 81 Mg Tablet.dr, 81 MG PO DAILY, (Reported) Calcium Polycarbophil (Fibercon) 625 Mg Tablet, 625 MG PO DAILY, (Reported) Cholecalciferol (Vitamin D3) (Vitamin D3) 5,000 Unit Capsule, 5,000 UNIT PO QPM, (Reported) Ezetimibe/Simvastatin (Ezetimibe-Simvastatin 10-20 mg) 1 Each Tablet, 1 TAB PO DAILY, (Reported) PATIENT HAS BEEN OUT OF THIS MEDICATION Garlic (Garlic) 1 Each Tablet, 150 MG PO DAILY, (Reported) Hypromellose (Genteal Tears Severe) 10 Gm Gel..gram., 1 INCH OU QHS, (Reported) Indapamide (Indapamide) 1.25 Mg Tablet, 1.25 MG PO DAILY, (Reported) Multivitamin (Multi-Vitamin Daily) 1 Each Tablet, 1 TAB PO DAILY, (Reported) Salmeterol/Fluticasone (Advair 250-50 Diskus) 1 Each Blst.w.dev, 1 PUFF INH QHS, (Reported) PATIENT STATES SHE ONLY TAKES ONE PUFF DAILY Timolol Maleate (Timolol Maleate) 0.5% 5ML Drops, 1 DROP OU BID, (Reported) Travoprost (Travatan Z) 0.004% 2.5ML Drops, 1 DROP OU QHS, (Reported) Ubidecarenone (Co Q-10) 200 Mg Capsule, 200 MG PO QPM, (Reported) Valsartan (Valsartan) 320 Mg Tablet, 320 MG PO QHS, (Reported) Scheduled PRN Albuterol Sulfate (Ventolin Hfa) 18 Gm Hfa.aer.ad, 2 PUFF INH Q6H PRN for SHORTNESS OF BREATH, (Reported) Naproxen Sodium (Aleve) 220 Mg Tablet, 220 MG PO BID PRN for PAIN, (Reported) Polyvinyl Alcohol/Povidone/Pf (Refresh Classic Eye Drops) 1 Each Droperette, 1 DROP OU PRN PRN for DRY EYES, (Reported) Allergies Coded Allergies: lisinopril (Verified Adverse Reaction, Unknown, cough, 09/23/18) promethazine (Verified Adverse Reaction, Unknown, hallucinations, 09/23/18) Past Medical History Medical History HTN, diverticulosis, Hyperlipdemia, OA, Osteoporosis, Surgical History Cholecystectomy Hysterectomy left eye surgery Family History Significant Family History: No pertinent family hx Social History * Smoker: Denies Alcohol: rarely Drugs: denies A-FIB/CHADSVASC A-FIB History Current/History of A-Fib/PAF?: No Review of Systems Constitutional: Denies: Chills, Fever, Malaise, Night Sweats, Weakness, Fatigue, Weight Loss, Lethargy Eyes: Reports: Vision change (chronic) ENT: Denies: Head Aches, Ear Pain, Dysphagia, Sinus Congestion, Post Nasal Drip, Sore Throat Skin: Denies: Rash, Jaundice, Bruising, Itching, Dry Pulmonary: Denies: Dyspnea, Cough, Pleuritic Chest Pain Cardiovascular: Denies: Chest Pain, Palpitations, Orthopnea, Paroxysmal Noc. Dyspnea, Edema Gastrointestinal: Denies: Nausea, Vomiting, Abdominal Pain, Diarrhea, Constipation Genitourinary: Denies: Dysuria, Frequency, Incontinence Hematologic: Denies: Bruising, Bleeding Excessively Endocrine: Denies: Polydipsia, Polyphagia, Polyuria Musculoskeletal: Reports: Leg Pain Neurological: Reports: Other Symptoms (left upper arm parathesia); Denies: Weakness, Incoordination, Change in speech, Confusion, Seizures Psych: Reports: Mood Normal Physical Examination General Exam: Positive: Alert, Cooperative, No Acute Distress Eye Exam: Positive: PERRLA, EOMI ENT Exam: Positive: Atraumatic, Mucous membr. moist/pink Neck Exam: Positive: Supple, +2 carotid pulse wo bruit Chest Exam: Positive: Clear to auscultation, Normal air movement Heart Exam: Positive: Rate Normal, Regular Rhythm, Murmurs Telemetry: Positive: Sinus, Other Telemetry: (incomplete RBBB) Extremity Exam: Positive: Normal pulses, Other (no edema) Skin Exam: Positive: Nl turgor and temperature Neuro Exam: Positive: Normal Gait, Normal Speech, Strength at 5/5 X4 ext, Normal Tone Psych Exam: Positive: Mental status NL, Mood NL, Memory Intact, Oriented x 3 Vital Signs Vital Signs Date Time Temp Pulse Resp B/P (MAP) Pulse Ox O2 Delivery O2 Flow Rate FiO2 09/23/18 17:37 69 212/84 09/23/18 17:00 20 99 Room Air 09/23/18 15:28 96.2 Laboratory Data Labs 24H Laboratory Tests 2 09/23/18 15:43: Immature Granulocyte % (Auto) 0.3, White Blood Count 7.8, Red Blood Count 4.98, Hemoglobin 14.6, Hematocrit 41.8, Mean Corpuscular Volume 83.9, Mean Corpuscular Hemoglobin 29.3, Mean Corpuscular Hemoglobin Concent 34.9, Red Cell Distribution Width 12.8, Platelet Count 414, Neutrophils (%) (Auto) 65.2, Lymphocytes (%) (Auto) 17.4L, Monocytes (%) (Auto) 7.0H, Eosinophils (%) (Auto) 9.3H, Basophils (%) (Auto) 0.8, Neutrophils # (Auto) 5.1, Lymphocytes # (Auto) 1.4L, Monocytes # (Auto) 0.5, Eosinophils # (Auto) 0.7H, Basophils # (Auto) 0.1, Nucleated Red Blood Cells % (auto) 0.0, Prothrombin Time 13.0, Prothromb Time International Ratio 0.97, Activated Partial Thromboplast Time 34.5, Anion Gap 10, Glomerular Filtration Rate > 60.0, Calcium Level 10.3H, Aspartate Amino Transf (AST/SGOT) 32, Alanine Aminotransferase (ALT/SGPT) 32, Alkaline Phosphatase 117, Total Bilirubin 0.5, Direct Bilirubin 0.2, Total Creatine Kinase 70, Creatine Kinase MB 1.3, Creatine Kinase MB Relative Index 1.86, Troponin I < 0.02, Total Protein 7.1, Albumin 3.7, Albumin/Globulin Ratio 1.09 CBC/BMP Laboratory Tests 09/23/18 15:43 Red Blood Count 4.98, Mean Corpuscular Volume 83.9, Mean Corpuscular Hemoglobin 29.3, Mean Corpuscular Hemoglobin Concent 34.9, Red Cell Distribution Width 12.8, Neutrophils (%) (Auto) 65.2, Lymphocytes (%) (Auto) 17.4 L, Monocytes (%) (Auto) 7.0 H, Eosinophils (%) (Auto) 9.3 H, Basophils (%) (Auto) 0.8, Neutrophils # (Auto) 5.1, Lymphocytes # (Auto) 1.4 L, Monocytes # (Auto) 0.5, Eosinophils # (Auto) 0.7 H, Basophils # (Auto) 0.1 Assessment/Plan TIA - neuro checks, , MRI/MRA of head ; MRA neck, ASA HTN urgency - card consulted and meds adjusted; and recommends to continue with norvasc BID, coreg BID and add NTP, lasix. hold HCTZ; prn NTG patch Heart murmur with HTN - check echo Hyponatremia - due to thiazide diurectics, fluid restriction CODE STATUS: FULL DVT PROPHYLAXIS: Heparin SC Plan / VTE VTE Prophylaxis Ordered?: Yes KATHIA SAUNDERS DO Sep 23, 2018 18:16
--- NOTE | 2018-09-24 07:40 | REP ---
Right shoulder three views: There are no comparisons. There is acromioclavicular osteoarthritis. The glenohumeral joint is unremarkable. Mineralization is normal. There is a calcifications superolateral to the humeral head compatible with calcific tendonitis. There is no fracture or dislocation. Impression: Acromioclavicular osteoarthritis. Calcific tendonitis. Electronically Signed by Dudley Cerna MD 09/24/2018 07:32 A
[2018-09-24 07:51] LABS: CHOLESTEROL LEVEL 250 MG/DL (<200); HDL CHOLESTEROL 105 MG/DL (>40); LDL CHOLESTEROL 137 MG/DL (<100); NON-HDL-C 145 MG/DL; TRIGLYCERIDES LEVEL 40 MG/DL (<150)
[2018-09-24] MEDS: VALSARTAN 80 MG TAB (DIOVAN) PO SCH ×2 (08:00→20:15)
[2018-09-24] MEDS ORDERED: SODIUM CHLORIDE 0.9% 1000ML IV ONE (08:30)
[2018-09-24] MEDS ORDERED: POTASSIUM CHLORIDE 10 MEQ SR TABLET PO SCH (09:00)
[2018-09-24] MEDS: ASPIRIN 81 MG ENTERIC TAB PO SCH (09:36)
[2018-09-24] MEDS: MAGNESIUM OXIDE 400 MG TAB (MAG-OX) PO SCH (09:36)
[2018-09-24] MEDS: TIMOLOL MALEATE 0.5% OPHTH SOLN 5 ML OU SCH ×2 (09:37→20:16)
[2018-09-24] MEDS: amLODIPine 5 MG TAB PO SCH ×2 (10:39→22:02)
[2018-09-24] MEDS: CARVedilol 3.125 MG TAB PO SCH ×2 (12:00→18:00)
[2018-09-24 13:47] LABS: OSMOLALITY URINE 238 MOSM/KG (500-800)
--- NOTE | 2018-09-24 14:01 | IPNPDOC ---
Date Seen The patient was seen on 09/24/18. Progress Note SUBJECTIVE: Patient is an 82-year-old female with hypertensive urgency and left sided upper extremity paresthesias. Patient is evaluated at bedside this morning. Her daughter is present. Patient states that her left sided upper extremity paresthesias have resolved. She has no visual deficits, no headaches. Further denies chest pain, shortness of breath, fevers, night sweats, chills. Patient (and daughter) states that she consumes very little water throughout the day. For breakfast she will have yoghurt, toast, and tea, for lunch she will have a lettuce sandwich, and for dinner she will sometimes have nothing or even some popcorn. OBJECTIVE PHYSICAL EXAMINATION: VITAL SIGNS: Please see below. GENERAL: Elderly female, petite, alert and conversant, answers q uestions appropriately, no acute distress. HEENT: Atraumatic, normocephalic, PERRL, EOMI, cheeks appears flushed, oral mucosa appears pink and moist, nasal septum appears midline, nares are patent. CARDIOVASCULAR: Regular rate and rhythm, normal S1 and S2, grade II/ systolic murmur appreciated most prominently over the 2nd intercostal space on the right, no rub, click. RESPIRATORY: Clear to auscultation bilaterally, adequate inspiratory and expiratory airway excursion, symmetric airway entry, no focal consolidations, no wheeze, rhonchi, crackles. ABDOMINAL: Soft, non-tender, non-distended, no guarding, no rebound, bowel sounds appreciated. EXTREMITIES: No clubbing, no cyanosis, no peripheral edema. NEUROLOGICAL: CN II-XII grossly intact. PSYCHOLOGICAL: Mood and affect appropriate. LABORATORY DATA, IMAGING STUDIES, MICROBIOLOGY: Please see below. 1. MRA neck without and with contrast - There is mild atherosclerotic changes in the proximal right ICA estimated at less than 50 % narrowing which is consistent with a mild stenosis using NASCET criteria. There is moderate atherosclerotic changes in the proximal left ICA estimated at 50-60% narrowing which is consistent with a moderate stenosis using NASCET criteria. 2. CT head without contrast - There is minimal diffuse cerebral atrophy and vascular calcification. Otherwise negative. No acute intracranial lesion. 3. Portable chest x-ray - Negative portable chest. There is no interval change. 4. MRI head without contrast - Multiple foci of T2 lengthening are demonstrated in the periventricular and centrum semiovale white matter consistent with age- related small vessel gliosis. 5. MRA head without contrast - No significant stenosis, occlusion, or other findings. 6. Right complete shoulder x-ray - Acromioclavicular osteoarthritis. Calcific tendonitis. DVT prophylaxis ordered?: Heparin 5,000 units SQ Q8H. ASSESSMENT AND PLAN: This is an 82-year-old female with hypertensive urgency and left sided upper extremity paresthesias. PROBLEMS: 1. Hypertensive urgency Cardiology consulted C/W Amlodipine 5mg PO BID, Carvedilol 3.125mg PO Q6H, Nitroglycerin 1gm TOP Q6HP, Valsartan 80mg PO BID S/P Furosemide, Hydralazine Telemetry for 48 hours No added salt diet Current BP: 149/67 2. Left sided upper extremity paresthesias Resolved Cardiac markers trended and negative Imaging as noted above 3. Hyponatremia Possibly secondary to HCTZ, fluid restriction Serum Na 121, serum osmolality 264 Urine Na, urine osmolality pending TSH, random cortisol, AM cortisol pending 500mL NS bolus at 100 mLs/hr Recheck BMP at 1500 4. Hypomagnesemia Mg level 1.6 C/W daily magnesium supplementation 5. Glaucoma C/W Latanoprost, Timolol DISPOSITION: Pending hyponatremia evaluation. VS, I&O, 24H, [facility] Vital Signs/I&O Vital Signs Date Time Temp Pulse Resp B/P (MAP) Pulse Ox O2 Delivery O2 Flow Rate FiO2 09/24/18 12:00 53 149/67 09/24/18 12:00 97.1 18 99 09/23/18 20:13 Room Air I&O- Last 24 Hours up to 6 AM 09/24/18 06:00 Output Total 300 ml Balance -300 ml Laboratory Data 24H LABS Laboratory Tests 2 09/23/18 15:43: Immature Granulocyte % (Auto) 0.3, White Blood Count 7.8, Red Blood Count 4.98, Hemoglobin 14.6, Hematocrit 41.8, Mean Corpuscular Volume 83.9, Mean Corpuscular Hemoglobin 29.3, Mean Corpuscular Hemoglobin Concent 34.9, Red Cell Distribution Width 12.8, Platelet Count 414, Neutrophils (%) (Auto) 65.2, Lymphocytes (%) (Auto) 17.4L, Monocytes (%) (Auto) 7.0H, Eosinophils (%) (Auto) 9.3H, Basophils (%) (Auto) 0.8, Neutrophils # (Auto) 5.1, Lymphocytes # (Auto) 1.4L, Monocytes # (Auto) 0.5, Eosinophils # (Auto) 0.7H, Basophils # (Auto) 0.1, Nucleated Red Blood Cells % (auto) 0.0, Prothrombin Time 13.0, Prothromb Time International Ratio 0.97, Activated Partial Thromboplast Time 34.5, Anion Gap 10, Glomerular Filtration Rate > 60.0, Calcium Level 10.3H, Aspartate Amino Transf (AST/SGOT) 32, Alanine Aminotransferase (ALT/SGPT) 32, Alkaline Phosphatase 117, Total Bilirubin 0.5, Direct Bilirubin 0.2, Total Creatine Kinase 70, Creatine Kinase MB 1.3, Creatine Kinase MB Relative Index 1.86, Troponin I < 0.02, Total Protein 7.1, Albumin 3.7, Albumin/Globulin Ratio 1.09 09/23/18 19:53: Troponin I < 0.02 09/23/18 22:51: Anion Gap 10, Glomerular Filtration Rate > 60.0, Calcium Level 9.9, Troponin I < 0.02, Blood Urea Nitrogen 21H, Creatinine 0.86, Sodium Level 122L, Potassium Level 4.2, Chloride Level 85L, Carbon Dioxide Level 27 09/24/18 04:52: Nucleated Red Blood Cells % (auto) 0.0, Anion Gap 8, Glomerular Filtration Rate 54.0, Calcium Level 8.8, Troponin I < 0.02, Magnesium Level 1.6L, Triglycerides Level 40, LDL Cholesterol 137H, Total Cholesterol 250H, Non-HDL Cholesterol (LDL + VLDL) 145, Total HDL Cholesterol 105, Cholesterol/HDL Ratio 2.380 09/24/18 11:21: Osmolality 264L CBC/BMP Laboratory Tests 09/23/18 15:43 Red Blood Count 4.98, Mean Corpuscular Volume 83.9, Mean Corpuscular Hemoglobin 29.3, Mean Corpuscular Hemoglobin Concent 34.9, Red Cell Distribution Width 12.8, Neutrophils (%) (Auto) 65.2, Lymphocytes (%) (Auto) 17.4 L, Monocytes (%) (Auto) 7.0 H, Eosinophils (%) (Auto) 9.3 H, Basophils (%) (Auto) 0.8, Neutrophils # (Auto) 5.1, Lymphocytes # (Auto) 1.4 L, Monocytes # (Auto) 0.5, Eosinophils # (Auto) 0.7 H, Basophils # (Auto) 0.1 09/23/18 22:51 Calcium Level 9.9 09/24/18 04:52 Red Blood Count 4.38, Mean Corpuscular Volume 81.3, Mean Corpuscular Hemoglobin 29.0, Mean Corpuscular Hemoglobin Concent 35.7, Red Cell Distribution Width 12.3 MAXWELL MCCLENDON DO Sep 24, 2018 14:01
[2018-09-24 14:04] LABS: SODIUM,RANDOM URINE 42 MEQ/L
--- NOTE | 2018-09-24 14:29 | CR ---
CARDIOLOGY CONSULTATION DATE OF CONSULTATION: 09/24/2018 REFERRING PHYSICIAN: Dr. Brit Esparza, hospitalist. INDICATION: Suboptimal blood pressure control and hyponatremia. HISTORY: This 82-year-old mother of four grown children, retired resident of [place], [place] is known to our cardiology practice with prior noninvasive cardiac testing and office consultation with Dr. Hernandez on September 09, 2018. She has had a history of essential hypertension dating back to 20 years, but is not known to have suffered any end organ damage. At her age, she still lives alone and is quite independent, but does admit to some imbalance when walking, but has not fallen. Specifically denies any effort related chest, jaw or arm discomforts. Does not feel short of breath. Has no awareness of her heart action unless she is lying in bed at night and feels a pulsation in her head. Has been on Lasix therapy for many years as a part of her antihypertensive regimen, but also for chronic lower leg swelling. Prior experience with hydrochlorothiazide lead to significant hyponatremia. Prior exposure to [place] inhibition caused an irritating dry cough. Has never fallen or lost consciousness. No prior history of stroke, but the day she was brought into the hospital, yesterday, she reported experiencing a transient left arm numbness. Subsequently reported some headache, but no other lateralizing neurological complaint. No history of flank pain, hematuria or blue toe syndrome. Previously known to have nonobstructive carotid vascular disease. Aware of a heart murmur with previous echocardiogram showing mild aortic insufficiency. Unaware of cardiomegaly. No history of rheumatic fever. Denies claudication. No known phlebitis. CORONARY RISK FACTORS: Advanced age. Postmenopausal status. Chronic hypertension, hypercholesterolemia, obesity, and family history of premature coronary heart disease. Has never smoked. No history of diabetes mellitus. OTHER PAST MEDICAL/SURGICAL HISTORY: Four normal vaginal deliveries. Prior dilatation and curettage. Remote tonsillectomy/adenoidectomy. Remote appendectomy. Prior partial hysterectomy. Laparoscopic cholecystectomy. Left knee arthroscopic surgery. Bilateral cataract extraction. Left eye surgery. REVIEW OF SYSTEMS: Does admit to some ease of fatigue but has been free of any fever, chills or night sweats. Wears corrective lenses. No auditory problems. Denies cough, hemoptysis or prior pneumonia. Claims to sleep well without history of apnea. Good appetite with no dysphagia, abdominal pain, change in bowel habit or GI bleeding. Nocturia times one is chronic. No known renal insufficiency. Does have some stress incontinence. Occasional left knee arthralgia. History of migraine illness, but no vertigo. No history of anxiety or depression. Sensitivity to cold. Bruises easily. History of seasonal allergies. All other systems review was negative. MEDICATIONS: At the time of her admission these included: - Valsartan 320 mg daily - indapamide 1.25 mg daily - amlodipine 5 mg daily - Advair Diskus 250-50 1 inhalation daily - Ventolin inhaler 2 puffs q.6 h p.r.n. dyspnea - Zetia/simvastatin 10/20 1 tablet daily - multivitamin 1 tablet daily - Timoptic eye drops 0.5% 1 drop in each eye b.i.d. -Travatan Z eye drops 1 drop each eye q.h.s. - coenzyme Q10 200 mg daily - refresh classic eye drops 1 drop each eye p.r.n. dry eye - hypromellose 1 inch nightly topically - garlic pill 1 tablet daily - vitamin D3 5,000 units daily - calcium - FiberCon 650 mg p.o. daily - Naprosyn 220 mg tablets 1 tablet b.i.d. p.r.n. arthritic pain ALLERGIES: 1. PROMETHAZINE. 2. LISINOPRIL. PHYSICAL EXAMINATION: CONSTITUTIONAL: Obese, pleasant elderly lady who moves quite slowly. She is in no distress lying with the head of bed elevated 30 degrees. VITAL SIGNS: Heart rate 56 bpm and regular, blood pressure 160/68 supine, 150/64 sitting with legs dependent, respiratory rate 16 per minute, O2 saturation 96% on room air. Afebrile. Weight 166 pounds, height 59 inches, BMI 33.5. EYES: Senile arcus but no pallor or icterus. No xanthelasma. ENT/MOUTH: Multiple dental fillings with some missing teeth. Normal oral moisture. No central cyanosis. NECK: Trachea midline. Thyroid not enlarged. Jugular veins were 1-2 cm above the sternal angle. RESPIRATORY: Normal appearing chest configuration and chest expansion. Large breasts. Good air entry over both lung thorne with no abnormal pulmonary adventitious sounds. CARDIOVASCULAR: Apical impulse lateral to the mid line fifth intercostal space. Normal S1 with increased S2 intensity. Normal respiratory splitting of S2 with audible S2 pulmonary component at the right base suggestive of a degree of pulmonary hypertension. S4 but no S3 gallop. Has a grade 2/6 systolic ejection murmur heard maximally along the right base but radiates along left sternal border as well as to her neck. No diastolic murmur or rub. Brisk carotid upstroke with increased pulse volume. Transmitted bruits as mentioned. Upper extremity, femoral and pedal pulses were symmetrical and normal. Her abdominal aorta was not palpable. No audible bruits. EXTREMITIES: Has dilated superficial venules both lower legs with at least 1 mm pitting edema one-third up both lower legs. No clubbing, peripheral cyanosis or splinter hemorrhages. ABDOMEN: Overweight, soft and nontender with no hepatosplenomegaly. RECTAL EXAMINATION: Not indicated. MUSCULOSKELETAL: Her gait was not assessed at this time, but she did have some proximal muscle weakness. Normal tone. No abnormal movements. Normal spine curvature. SKIN: Some facial redness related to sun exposure and atrophic changes of skin both lower legs but no other rashes, ecchymotic lesions or icterus. NEURO/PSYCH: Currently bright, alert and orientated, and gave fair history. Affect was normal. INVESTIGATIONS: Portable upright chest x-ray: Study performed yesterday afternoon upon her admission and shows heart size upper limits of normal given this technique. Her thoracic aorta appeared to be slightly unfolded. Pulmonary vasculature was normal. Clear lung thorne with no infiltrate or pleural effusion. EKG: Study taken in the emergency room was reviewed independently and shows sinus rhythm at 67 bpm. Left atrial conduction disturbance with borderline first-degree AV block. [place] was leftward, but still within normal limits. Incomplete right bundle branch block pattern with slightly prominent voltage in aVL suggestive of LVH. No more than subtle lateral ST scooping. No change from our office tracing September 09, 2018. BLOOD WORK: Studies performed yesterday showed hemoglobin of 14.6 with normal white blood cell count and platelet count. Normal PT/INR and PTT. Admission serum sodium was 124 with chloride 87. Other electrolytes were normal with potassium 4.7, bicarbonate was normal. BUN was 22, creatinine 0.88, random glucose 104. Initial serum calcium 10.3. Serum magnesium level was 1.6. Albumin 3.7 with normal liver function studies. Serial Troponin I levels were negative. Fasting lipid profile this morning shows a total cholesterol 250, LDL 137, HDL 105, total/HDL ratio of 2.38, triglycerides 40. Follow-up blood work this morning shows a serum sodium of 121, but she is receiving IV fluid and on a fluid intake restriction of only 1500 mL. Chloride was also down at 85, but other electrolytes were normal. BUN and creatinine essentially stable. No urinalysis available at this time. MRA of her neck showed mild atherosclerotic changes of the proximal right internal carotid with less than 50% stenosis and moderate atherosclerotic changes of the proximal left internal carotid with 50-60% stenosis. Normal antegrade vertebral arterial flow. MRI of her brain without contrast showed evidence of mild cerebral atrophy with some age-related small vessel disease. Left shoulder x-ray showed evidence of calcific tendonitis on the right side with acromioclavicular osteoarthritis. IMPRESSION/PLAN: 1. Essential hypertension: Suboptimal blood pressure control on admission, possibly partially related to anxiety with concern regarding possible cerebrovascular event and because of migraine. While in hospital, I have taken the liberty of adjusting her antihypertensive therapy: She will now be on carvedilol 3.125 mg p.o. q.6 h hold for heart rate less than 55 and systolic blood pressure less than 140 systolic, valsartan 80 mg b.i.d. hold for systolic blood pressure less than 140, amlodipine 5 mg b.i.d. hold for systolic blood pressure less than 150 and she has nitro paste 1 gram q.6 h hold for blood pressure less than 170. Her current diuretic therapy has been placed on hold because of her hyponatremia. These medications have been purposely staggered in order that we can provide control and determine dose requirement of these agents over the next 48 hours. 2. Hyponatremia (thiazide induced): Frustratingly, this entity is not an uncommon complication in elderly women. Her volume status is normal. She is not dehydrated or edematous. The appropriate therapy here in the absence of neurological symptoms is simply strict fluid intake restriction to 1 liter daily. Her current IV fluid has been discontinued and she has been placed on 1 liter fluid intake restriction daily. I have discussed the importance of this fluid intake restriction with the patient and her daughter in detail hoping to encourage compliance. Her chemistry will continue to be monitored closely with you. She should avoid thiazide diuretics in the future, but may not be unreasonable to consider reintroduction of low-dose Lasix loop diuretic as this agent has been found to be useful in preventing hyponatremia and augmenting free water clearance. I would be tempted to withhold this agent until her serum sodium concentration is 130 mEq per liter. 3. Abnormal EKG: Does appear to have an element of sinus node dysfunction with soft heart rate on no more than beta yaneli eye drops. I am hoping she will still tolerate low-dose carvedilol. We are hoping to use as a part of her antihypertensive regimen. She remains on a monitor and we will follow this closely. Has definite signs of hypertensive heart disease with left atrial enlargement and prominent voltage. Remote echocardiogram May 16, 2011 reportedly showed normal left ventricular size, wall thickness and wall motion. Left atrial size at that time was also reported to be normal, but there evidence of LV diastolic dysfunction and possibly moderate secondary pulmonary hypertension. 4. Cardiomegaly: An echocardiogram/Doppler study has been requested by her primary provider and clinically she has at least mild cardiomegaly. I have no doubt she will be found to have at least mild left atrial enlargement as well as a degree of left ventricular hypertrophy. I believe these findings are related to her chronic hypertension and obesity. 5. Aortic valve disorder (nonrheumatic)/insufficiency: I can detect a systolic ejection murmur, but no diastolic murmur at this time. Has no symptoms or signs of endocarditis. Her previously noted aortic insufficiency may also be contributing to cardiomegaly. It is certainly contributing to her impressive pulse pressure. I suspect she will also be shown to have at least a mildly dilated aortic root. Salter management would be optimal blood pressure control. I will plan on following her closely with you and appreciate the opportunity to participate in her care.
[2018-09-24] MEDS ORDERED: SLF 3 ML SYR IV PRN (14:30)
[2018-09-24] MEDS: LIDOCAINE 5% (LIDODERM) PATCH TD SCH (15:14)
[2018-09-24 15:27] LABS: CALCIUM LEVEL 8.9 MG/DL (8.8-10.2); CREATININE FOR GFR 1.27 MG/DL (0.55-1.30); GLOMERULAR FILTRATION RATE 42.9 (>32); POTASSIUM SERUM 3.6 MEQ/L (3.5-5.1)
[2018-09-24 15:37] LABS: THYROID STIMULATING HORMONE 3.82 uIU/ML (0.358-3.740)
[2018-09-24 15:38] LABS: CORTISOL PM 18.2 UG/DL (3.1-16.7)
[2018-09-24] MEDS ORDERED: NS 500 ML IV ONE (16:30)
--- NOTE | 2018-09-24 16:41 | IPNPDOC ---
Text Note Date of Service The patient was seen on 09/24/18. NOTE S: patient admitted with TIA and elevated blood pressures, hyponatremia She has had no further left arm parathesia or weakness. Her BP have improved control. Her sodium decreased during night with fluid restriction and diuretics O: Vitals as below General: pleasant, NAD, AAOx3 HRRR LCTA Neuro: CN3-12 intact no gross motor or sensory deficits MRA carotids IMPRESSION: 1. There is mild atherosclerotic changes in the proximal right ICA estimated at less than 50 % narrowing which is consistent with a mild stenosis using NASCET criteria. 2. There is moderate atherosclerotic changes in the proximal left ICA estimated at 50-60% narrowing which is consistent with a moderate stenosis using NASCET criteria. MRI/MRA brain:IMPRESSION: Multiple foci of T2 lengthening are demonstrated in the periventricular and centrum semiovale white matter consistent with age-related small vessel gliosis. No significant stenosis, occlusion, or other findings. Reviewed MRI findings with daughter and patient A/P:TIA - resolved; add statin HTN - improved with medication changes Hyponatremia - suspect due to thiazide diuretics and volume depletion. Will give 500ml NS and repeat NA in Afternoon (with goal of 127 or less to avoid sodium repletion complications) D/C lasix. Patient on fluid restriction but doesn't drink enough to meet restriction BRITTANY with dehydration - due to lasix, diuresis. treat with IVF Repeat labs reviewed. Will give additional fluid challenge. Doubt accuracy of urine sodium, etc because patient had been on diuretics Item Value Date Time Sodium Level 123 MEQ/L L 09/24/18 1444 Potassium Level 3.6 MEQ/L 09/24/18 1444 Blood Urea Nitrogen 26 MG/DL H 09/24/18 1444 Creatinine 1.27 MG/DL 09/24/18 1444 Thyroid Stimulating Hormone (TSH) 3.820 uIU/ML H 09/24/18 1444 Cortisol PM Sample 18.2 UG/DL H 09/24/18 1444 Total Cholesterol 250 MG/DL H 09/24/18 0452 LDL Cholesterol 137 MG/DL H 09/24/18 0452 VS,Fishbone, I+O VS, Fishbone, I+O Laboratory Tests 09/23/18 15:43 Red Blood Count 4.98, Mean Corpuscular Volume 83.9, Mean Corpuscular Hemoglobin 29.3, Mean Corpuscular Hemoglobin Concent 34.9, Red Cell Distribution Width 12.8, Neutrophils (%) (Auto) 65.2, Lymphocytes (%) (Auto) 17.4 L, Monocytes (%) (Auto) 7.0 H, Eosinophils (%) (Auto) 9.3 H, Basophils (%) (Auto) 0.8, Neutrophils # (Auto) 5.1, Lymphocytes # (Auto) 1.4 L, Monocytes # (Auto) 0.5, Eosinophils # (Auto) 0.7 H, Basophils # (Auto) 0.1 09/23/18 22:51 Calcium Level 9.9 09/24/18 04:52 Red Blood Count 4.38, Mean Corpuscular Volume 81.3, Mean Corpuscular Hemoglobin 29.0, Mean Corpuscular Hemoglobin Concent 35.7, Red Cell Distribution Width 12.3, Calcium Level 8.8 Vital Signs Date Time Temp Pulse Resp B/P (MAP) Pulse Ox O2 Delivery O2 Flow Rate FiO2 09/24/18 04:00 97.7 70 18 118/58 (78) 96 09/23/18 20:13 Room Air I&O- Last 24 Hours up to 6 AM 09/24/18 06:00 Output Total 300 ml Balance -300 ml KATHIA SAUNDERS DO Sep 24, 2018 07:35
[2018-09-24] MEDS ORDERED: TOLVAPTAN 15 MG TAB (SAMSCA) PO ONE (17:00)
[2018-09-24] MEDS: ATORVASTATIN 20 MG TAB PO SCH (20:15)
[2018-09-24] MEDS: LATANOPROST 0.005% OPHTH SOLN 2.5 ML OU SCH (20:16)
[2018-09-24] MEDS: **NOTE PATIENT COMMENT** MISC XX SCH (21:39)
[2018-09-24 21:55] LABS: CALCIUM LEVEL 8.9 MG/DL (8.8-10.2); CREATININE FOR GFR 1.25 MG/DL (0.55-1.30); GLOMERULAR FILTRATION RATE 43.7 (>32); POTASSIUM SERUM 3.7 MEQ/L (3.5-5.1)
[2018-09-24] MEDS: SLF 3 ML SYR IV SCH (22:02)
[2018-09-25] MEDS: CARVedilol 3.125 MG TAB PO SCH ×4 (00:15→18:00)
[2018-09-25 01:43] LABS: CALCIUM LEVEL 8.8 MG/DL (8.8-10.2); CREATININE FOR GFR 1.2 MG/DL (0.55-1.30); GLOMERULAR FILTRATION RATE 45.8 (>32); POTASSIUM SERUM 3.5 MEQ/L (3.5-5.1)
[2018-09-25 04:00] VITALS: BP 140/74
--- NOTE | 2018-09-25 04:53 | CR ---
DATE OF CONSULTATION: 09/24/2018 REQUESTING PHYSICIAN: Dr. Brit Esparza CONSULTING PHYSICIAN: Dr. Jain REASON FOR CONSULTATION: Management of hyponatremia. CHIEF COMPLAINT: The patient presented to the hospital with hypertension and left arm numbness. HISTORY OF PRESENT ILLNESS: Wilma Waters is an 82-year-old female with past medical history of hypertension, hyperlipidemia, osteoporosis, history of hyponatremia in the past; baseline sodium of 129 as of September 16, 2018, chronic kidney disease stage II with a baseline creatinine of 0.8. She presented to the hospital yesterday with a sudden onset of left arm numbness, paresthesia which improved spontaneously after about 10 minutes. She was found to have hypertensive urgency with systolic blood pressure of 212. The patient reports that her antihypertensive medications were recently changed; Cardizem was switched to Norvasc and she was recently started on a water pill which happens to be indapamide. The patient was admitted under the hospitalist service. She was started on antihypertensive medications. Her creatinine on arrival was 1.04. It has slightly bumped up to 1.27 today. She came in with a sodium level of 127 which has not been improving and her sodium level has been fluctuating around 121-123. Nephrology service was called for further help in the management of this patient's hyponatremia. I saw and evaluated the patient today evening at the bedside. Her family members were also present at the bedside. The patient is awake and alert. She has no confusion. She is able to answer most of the questions. Her blood pressures are better today as compared with yesterday. PAST MEDICAL HISTORY: Past medical history of: 1. Hypertension. 2. Hyperlipidemia. 3. Osteoarthritis. 4. Chronic kidney disease stage II. 5. History of hyponatremia in the past as well. PAST SURGICAL HISTORY: 1. Status post cholecystectomy. 2. Status post hysterectomy. 3. History of left eye surgery. ALLERGIES: The patient is allergic to LISINOPRIL and PROMETHAZINE. FAMILY HISTORY: No significant family history of end-stage renal disease requiring hemodialysis. SOCIAL HISTORY: The patient denies any illicit drug abuse, smoking, alcohol abuse. REVIEW OF SYSTEMS: CONSTITUTIONAL: She denies any fevers and chills. EYES: She denies any blurry vision or double vision. ENT: She denies any dysphagia, odynophagia or ear discharge. CARDIOVASCULAR: She denies any chest pain, palpitations. RESPIRATORY: She denies any shortness of breath or cough. GASTROINTESTINAL (GI): She denies any nausea, vomiting. GENITOURINARY (): She denies any dysuria, hematuria. MUSCULOSKELETAL: She denies any muscle aches and pains at this time. CENTRAL NERVOUS SYSTEM (CASING FINISHER AND STUFFER): The patient reports normal paresthesias in the left arm. PSYCHIATRIC: She denies any depression or anxiety. ENDOCRINE: She denies any hyperthyroidism or hypothyroidism. HEMATOLOGY ONCOLOGY: She denies any easy bleeding or bruising. All other review of systems is negative. PHYSICAL EXAMINATION: GENERAL: The patient is awake, alert, oriented x3, laying in bed in no apparent distress. VITAL SIGNS: Temperature is 98 degrees Fahrenheit, blood pressure 140/63, pulse is 68, respiratory rate of 18, saturating 97% on room air. HEAD AND NECK EXAM: Extraocular muscles are intact. Pupils equally round and reactive to light. Mucous membranes are moist. Neck is supple. There is no jugular venous distention (JVD). CARDIOVASCULAR: S1, S2, regular rate. No edema of the bilateral lower extremities. RESPIRATORY: Chest is clear to auscultation bilaterally. Bilateral equal air entry. No rales or rhonchi. ABDOMEN: Soft. Positive bowel sounds. Nontender. No organomegaly. MUSCULOSKELETAL: No clubbing or cyanosis. Pulses are 2+. CENTRAL NERVOUS SYSTEM (CASING FINISHER AND STUFFER): No focal deficit. Power is 5/5 in all extremities. LABORATORY REVIEW: Complete blood count (CBC) showed a white blood cell (WBC) of 8.2, hemoglobin 12.7, platelets of 365, INR is 0.97. Urine random osmolality is 238. Random sodium is 42. Basic metabolic panel (BMP) showed sodium 123, potassium 3.6, chloride 86, bicarbonate 30, BUN 26, creatinine is 1.27, calcium is 8.9. IMAGING STUDIES: MRI of the brain did not show any acute lesions. CURRENT INPATIENT MEDICATIONS: - normal saline - the patient was given normal saline 500 mL bolus. - amlodipine - she is on amlodipine 5 mg by mouth twice a day - Artificial Tears. - aspirin 81 mg daily. - Lipitor 20 mg at bedtime. - Coreg 3.125 mg by mouth every six hourly. - Lasix - she was on Lasix 20 mg IV twice a day which has been stopped now. - heparin 5000 units subcutaneous every eight hourly. - magnesium 400 mg by mouth daily. - Reglan as needed. - Zofran 4 mg intravenous (IV) every 6 hours as needed nausea, vomiting. - timolol eye drops. - valsartan 80 mg by mouth twice a day. ASSESSMENT: An 82-year-old female with transient ischemic attack, hypertensive urgency and hyponatremia. PLAN: 1. Hyponatremia. The patient has euvolemic hypotonic hyponatremia with low serum osmolality. 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 The patient needs a fluid restriction of 1500 mL a day. I have given the patient a dose of tolvaptan 15 mg by mouth x1 dose. There is slight improvement in the sodium from 123-125. If the patient has hyponatremia again then she will be started on Lasix low-dose twice a day along with salt tablets. Avoid use of thiazide diuretics. It is okay to continue the angiotensin receptor blockers. However, if the sodium level does not improve I might have to stop the angiotensin receptor yaneli as well. 2. Hypertensive urgency. Continue current dose of amlodipine 5 mg by mouth twice a day, Coreg 3.125 mg every six hourly, Diovan 80 mg by mouth twice a day. Further adjustment of the dose. This will be done tomorrow morning after seeing the patient's response to the medications. 3. Hypomagnesemia. The patient has been started on oral magnesium oxide. 4. Acute kidney injury superimposed on chronic kidney disease stage II. The patient had a creatinine of 0.8 on admission which has bumped up to 1.25. Avoid further use of furosemide at this point. The patient was also given a dose of ketorolac yesterday. Avoid further use of nonsteroidal anti-inflammatory drugs (NSAIDS). It is okay to use angiotensin receptor blockers at this point. 5. Transient ischemic attack. The patient's symptoms are better. Hypertension is better controlled now. Management of hyponatremia is as mentioned above. Thank you for involving me in the care of this patient. I shall be happy to follow the patient along with you tomorrow morning.
[2018-09-25 05:49] LABS: CREATININE FOR GFR 1.27 MG/DL (0.55-1.30); GLOMERULAR FILTRATION RATE 42.9 (>32); POTASSIUM SERUM 3.8 MEQ/L (3.5-5.1)
[2018-09-25] MEDS: HEPARIN SOD (PORCINE) 5000 UNITS/ML VIAL SC SCH ×3 (06:10→20:32)
[2018-09-25] MEDS: SLF 3 ML SYR IV SCH ×3 (06:11→20:29)
[2018-09-25 06:13] VITALS: BP 133/60
[2018-09-25 08:00] VITALS: BP 117/51
[2018-09-25] MEDS: VALSARTAN 80 MG TAB (DIOVAN) PO SCH (08:00)
[2018-09-25] MEDS ORDERED: TOLVAPTAN 15 MG TAB (SAMSCA) PO ONE (09:00)
[2018-09-25] MEDS: MAGNESIUM OXIDE 400 MG TAB (MAG-OX) PO SCH (09:39)
[2018-09-25] MEDS: ASPIRIN 81 MG ENTERIC TAB PO SCH (09:40)
[2018-09-25] MEDS: LIDOCAINE 5% (LIDODERM) PATCH TD SCH (09:40)
[2018-09-25] MEDS: TIMOLOL MALEATE 0.5% OPHTH SOLN 5 ML OU SCH ×2 (09:40→20:26)
[2018-09-25] MEDS: amLODIPine 5 MG TAB PO SCH ×2 (10:00→20:31)
--- NOTE | 2018-09-25 10:57 | IPNPDOC ---
Date Seen The patient was seen on 09/25/18. Progress Note SUBJECTIVE: Patient is an 82-year-old female with hypertensive urgency and left sided upper extremity paresthesias. Patient is evaluated at bedside this morning. Patient is laying in bed in the supine position. Patient reports improvement in her right shoulder pain with the lidocaine patch. No numbness or tingling. No vision changes. No fevers, night sweats, chills, chest pain, shortness of breath. Had [place] toast for breakfast this morning. OBJECTIVE PHYSICAL EXAMINATION: VITAL SIGNS: Please see below. GENERAL: Elderly female, petite, alert and conversant, answers questions appropriately, no acute distress. HEENT: Atraumatic, normocephalic, PERRL, EOMI, oral mucosa appears pink and moist, tongue is midline, nasal septum appears midline, nares are patent. CARDIOVASCULAR: Regular rate and rhythm, normal S1 and S2, grade II/ systolic murmur appreciated most prominently over the 2nd intercostal space on the right with radiation to the carotids, no rub, click. RESPIRATORY: Clear to auscultation bilaterally, adequate inspiratory and expiratory airway excursion, symmetric airway entry, no focal consolidations, no wheeze, rhonchi, crackles. ABDOMINAL: Soft, non-tender, non-distended, no guarding, no rebound, bowel sounds appreciated. EXTREMITIES: No clubbing, no cyanosis, no peripheral edema. NEUROLOGICAL: CN II-XII grossly intact. PSYCHOLOGICAL: Mood and affect appropriate. LABORATORY DATA, IMAGING STUDIES, MICROBIOLOGY: Please see below. 1. MRA neck without and with contrast - There is mild atherosclerotic changes in the proximal right ICA estimated at less than 50 % narrowing which is consistent with a mild stenosis using NASCET criteria. There is moderate atherosclerotic changes in the proximal left ICA estimated at 50-60% narrowing which is consistent with a moderate stenosis using NASCET criteria. 2. CT head without contrast - There is minimal diffuse cerebral atrophy and vascular calcification. Otherwise negative. No acute intracranial lesion. 3. Portable chest x-ray - Negative portable chest. There is no interval change. 4. MRI head without contrast - Multiple foci of T2 lengthening are demonstrated in the periventricular and centrum semiovale white matter consistent with age- related small vessel gliosis. 5. MRA head without contrast - No significant stenosis, occlusion, or other findings. 6. Right complete shoulder x-ray - Acromioclavicular osteoarthritis. Calcific tendonitis. DVT prophylaxis ordered?: Heparin 5,000 units SQ Q8H. ASSESSMENT AND PLAN: This is an 82-year-old female with hypertensive urgency and left sided upper extremity paresthesias. PROBLEMS: 1. Hypertensive urgency Cardiology consulted C/W Amlodipine 5mg PO BID, Carvedilol 3.125mg PO Q6H, Nitroglycerin 1gm TOP Q6HP D/C'd Valsartan 80mg PO BID (see #3) S/P Furosemide, Hydralazine Telemetry for 48 hours No added salt diet Current BP: 117/51 2. Left sided upper extremity paresthesias Resolved Cardiac markers trended and negative Imaging as noted above 3. 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 Hypomagnesemia Mg level ordered C/W daily magnesium supplementation 5. Glaucoma C/W Latanoprost, Timolol DISPOSITION: Pending hyponatremia improvement VS, I&O, 24H, [facility] Vital Signs/I&O Vital Signs Date Time Temp Pulse Resp B/P (MAP) Pulse Ox O2 Delivery O2 Flow Rate FiO2 09/25/18 08:00 97.0 61 20 117/51 (73) 96 09/23/18 20:13 Room Air I&O- Last 24 Hours up to 6 AM 09/25/18 06:00 Intake Total 680 ml Output Total 1351 ml Balance -671 ml Laboratory Data 24H LABS Laboratory Tests 2 09/24/18 11:21: Osmolality 264L 09/24/18 12:42: Urine Random Osmolality 238L, Urine Random Sodium 42 09/24/18 14:44: Anion Gap 7L, Glomerular Filtration Rate 42.9, Blood Urea Nitrogen 26H, Creatinine 1.27, Sodium Level 123L, Potassium Level 3.6, Chloride Level 86L, Carbon Dioxide Level 30, Calcium Level 8.9, Thyroid Stimulating Hormone (TSH) 3.820H, Cortisol PM Sample 18.2H 09/24/18 21:19: Anion Gap 8, Glomerular Filtration Rate 43.7, Blood Urea Nitrogen 26H, Creatinine 1.25, Sodium Level 125L, Potassium Level 3.7, Chloride Level 87L, Carbon Dioxide Level 30, Calcium Level 8.9 09/25/18 01:07: Anion Gap 9, Glomerular Filtration Rate 45.8, Blood Urea Nitrogen 27H, Creatinine 1.20, Sodium Level 126L, Potassium Level 3.5, Chloride Level 88L, Carbon Dioxide Level 29, Calcium Level 8.8 09/25/18 03:39: Urine Random Osmolality 177L 09/25/18 05:11: Anion Gap 7L, Glomerular Filtration Rate 42.9, Blood Urea Nitrogen 28H, Creatinine 1.27, Sodium Level 125L, Potassium Level 3.8, Chloride Level 88L, Carbon Dioxide Level 30, Calcium Level 9.0, Cortisol AM Sample 18.2 CBC/BMP Laboratory Tests 09/24/18 14:44 Calcium Level 8.9 09/24/18 21:19 Calcium Level 8.9 09/25/18 01:07 Calcium Level 8.8 09/25/18 05:11 Calcium Level 9.0 MAXWELL MCCLENDON DO Sep 25, 2018 10:57
[2018-09-25 11:11] LABS: MAGNESIUM LEVEL 2.1 MG/DL (1.8-2.4)
[2018-09-25 12:00] VITALS: BP 140/62
[2018-09-25 12:41] LABS: CALCIUM LEVEL 9.5 MG/DL (8.8-10.2); CREATININE FOR GFR 1.19 MG/DL (0.55-1.30); GLOMERULAR FILTRATION RATE 46.2 (>32)
[2018-09-25 16:00] VITALS: BP 133/54
[2018-09-25 18:36] LABS: CALCIUM LEVEL 9.5 MG/DL (8.8-10.2); CREATININE FOR GFR 1.27 MG/DL (0.55-1.30); GLOMERULAR FILTRATION RATE 42.9 (>32); POTASSIUM SERUM 4.1 MEQ/L (3.5-5.1)
[2018-09-25 20:02] VITALS: BP 138/52
[2018-09-25] MEDS: ATORVASTATIN 20 MG TAB PO SCH (20:27)
[2018-09-25] MEDS: LATANOPROST 0.005% OPHTH SOLN 2.5 ML OU SCH (20:27)
[2018-09-25] MEDS: **NOTE PATIENT COMMENT** MISC XX SCH (20:33)
--- NOTE | 2018-09-25 21:15 | IPN ---
DATE: 09/25/2018 My preceptor for this encounter is Dr. Matt Oscar. SUBJECTIVE: The patient is seen at the bedside in the progressive care unit (PCU). She is alert and well appearing. She states that she is feeling well today. She denies any chest pain, shortness of breath, palpitations, or new lower leg swelling. She denies any dizziness or loss of consciousness. She has no dyspnea on exertion, jaw or arm discomforts. PHYSICAL EXAMINATION: Vital signs: Temperature 97.0, pulse 61 and regular, respiratory rate 20, blood pressure 117/51, 96% on room air. Constitutional: This is a well-appearing elderly female who is in no acute distress with the head of the bed elevated to 45 degrees. HEENT: No pallor or icterus noted in the conjunctivae or sclerae. No xanthelasma. Mucous membranes are moist without central cyanosis. Dentition is poor with multiple dental fillings and missing teeth. Neck: Trachea is midline. Thyroid is not enlarged. Jugular veins are about 1 cm above the sternal angle. Respiratory: Normal chest expansion with good air entry over both lung thorne. No rhonchi, wheezes, or rales bilaterally. Cardiovascular: Apical impulse is lateral to the midline, fifth intercostal space. She has a normal S1 with increased S2 intensity, with normal respiratory splitting of S2. S2 is also audible at the right base. There is an S4 gallop but no S3 gallop heard. She has a grade 2/6 systolic ejection murmur that radiates along the left sternal border as well as into her neck. No diastolic murmurs or rubs. Carotid upstroke is brisk with increased pulse volume. Radial, femoral and pedal pulses are symmetrical and normal. Abdominal aorta is not palpable, there are no audible bruits. Extremities: Dilated superficial veins in both lower legs, some mild pitting edema to the distal [place]. No clubbing, cyanosis or splinter hemorrhages are noted. Abdomen: Soft, nontender to palpation. Normoactive bowel sounds. LABORATORY DATA: Chemistry: Most recent chemistry reveals she is still hyponatremic with a sodium of 125. Her potassium is 4.0, chloride 87, carbon dioxide 31, BUN 31, creatinine 1.19, glucose 99, calcium 9.5. Morning (a.m.) cortisol is 18.2 and urine osmolality this morning is 177. Telemetry: Shows her heart rate to be in the 50s and 60s for the most part. No events were recorded on telemetry overnight. IMPRESSION/PLAN: 1. Essential hypertension: Her valsartan was discontinued, secondary to minimal sodium improvement, by nephrology. She seems to have decent control at the moment with standard doses of carvedilol 3.125 mg every 6 hours by mouth with holding parameters. Her amlodipine was held this morning for a systolic under 150. She has also been getting tolvaptan from nephrology for her hyponatremia, which may be contributing to the increased control of her blood pressure. We will continue to follow this closely and make adjustments as needed. 2. Hyponatremia (thiazide induced): The patient is on a 1500 mL fluid restriction. Yesterday she had a negative balance of 371 mL of fluid. Her diuretics will remain on hold until her sodium is greater than 130. She has been getting tolvaptan per nephrology. She continues to be hyponatremic with a sodium of 125. 3. Abnormal EKG: Despite having an element of sinus node dysfunction, she seems to be tolerating the low-dose carvedilol. Her heart rate has been in the 50s and 60s, and she has had no complaints of weakness or dizziness. 4. Cardiomegaly: Most likely related to her chronic hypertension and obesity. The patient did refuse echocardiogram. 5. Aortic valve disorder (non-rheumatic)/insufficiency: Systolic ejection murmur continues to be heard, however, there are no diastolic murmurs at this time. She does not have any signs or symptoms of endocarditis. She refused an echocardiogram, we will continue to try to optimize her blood pressure control as per assessment #1.
--- NOTE | 2018-09-25 22:18 | IPN ---
DATE: 09/25/2018 SUBJECTIVE The patient was seen and examined at the bedside today, morning. She is afebrile, hemodynamically stable. Her blood pressure is very well controlled. She was given a dose of tolvaptan 15 mg by mouth times one dose. I do not see much improvement in the sodium level. Sodium is 125 today, morning. The renal function has been fluctuating with a creatinine close to 1.2. She otherwise denies any active complaints. OBJECTIVE: Vital signs: Temperature is 97 degrees Fahrenheit, blood pressure 140/62, pulse is 52, respiratory rate of 18, saturating 97% on room air. Intake and output: Urine output recorded is 1 liter yesterday, 500 mL so far today since overnight. Weight on the bed scale is 74.6 kg. PHYSICAL EXAMINATION: General: The patient is awake, alert, oriented times three, laying in bed, in no apparent distress. Head and neck exam: Extraocular muscles intact. Pupils equally round and reactive to light. Mucous membranes are moist. Neck is supple. There is no jugular venous distention (JVD). Cardiovascular: S1, S2, regular rate. No edema of the bilateral lower extremities. Respiratory: Chest is clear to auscultation bilaterally. Bilateral equal air entry. No rales or rhonchi. Abdomen: Soft. Positive bowel sounds. Nontender. No organomegaly. Musculoskeletal: No clubbing or cyanosis. Pulses are 2+. 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 Power is 5/5 in all extremities. LAB REVIEW: CBC is from yesterday. BMP today, morning, showed sodium 125, potassium 3.8, chloride 88, bicarbonate 30, BUN 28, creatinine is 1.2. CURRENT INPATIENT MEDICATIONS: The patient's medications were all reviewed by me. The patient was given another dose of tolvaptan 30 mg by mouth times one dose. I have stopped the patient's valsartan. Her valsartan was not administered today, morning, because of soft blood pressures. ASSESSMENT/PLAN: 1. Hyponatremia. The patient is being treated as syndrome of inappropriate secretion of antidiuretic hormone (SIADH). She was given tolvaptan 15 mg yesterday. No significant improvement in the sodium. She is being given tolvaptan 30 mg by mouth today. The patient was mildly hyponatremic as outpatient as well. She has been using angiotensin receptor blockers for a long time. I believe it is angiotensin receptor yaneli -induced chronic SIADH, they down regulate the sodium receptors in the kidney. I am holding the angiotensin receptor blockers, and I would see if that helps improve her sodium levels without having to give her salt tablets and Lasix daily. Continue the fluid restriction. 2. Essential hypertension. The patient's antihypertensives are being managed by cardiology. She is currently on amlodipine and Coreg; Diovan is being held because of soft blood pressures and because of SIADH as mentioned above. 3. Acute kidney injury superimposed on chronic kidney disease stage II. Patient's angiogenin receptor blockers are being held. Creatinine has been fluctuating at around 1.2. I am hopeful that her renal function should improve back to normal over the next 24-48 hours.
[2018-09-26] VITALS (9 sets, daily range): BP systolic 109–148; BP diastolic 54–68
[2018-09-26] MEDS: CARVedilol 3.125 MG TAB PO SCH ×4 (00:04→17:58)
[2018-09-26 00:13] LABS: CALCIUM LEVEL 9.1 MG/DL (8.8-10.2); CREATININE FOR GFR 1.22 MG/DL (0.55-1.30); GLOMERULAR FILTRATION RATE 44.9 (>32)
[2018-09-26] MEDS ORDERED: D5W 500 ML IV ONE (04:15)
[2018-09-26] MEDS ORDERED: D5W 1,000 ML IV SCH (04:30)
[2018-09-26 05:40] LABS: CALCIUM LEVEL 8.8 MG/DL (8.8-10.2); CREATININE FOR GFR 1.18 MG/DL (0.55-1.30); GLOMERULAR FILTRATION RATE 46.7 (>32); POTASSIUM SERUM 3.8 MEQ/L (3.5-5.1)
[2018-09-26 06:12] LABS: HEMATOCRIT 35.2 % (36.0-47.0); HEMOGLOBIN 12.2 g/dl (12.0-15.5); MEAN CORPUSCULAR HGB CONC 34.7 g/dl (32.0-36.5); MEAN CORPUSCULAR VOLUME 83.8 fl (80.0-96.0); PLATELET COUNT, AUTOMATED 335 10^3/uL (150-450)
[2018-09-26] MEDS: SLF 3 ML SYR IV SCH ×3 (06:15→20:35)
[2018-09-26] MEDS: HEPARIN SOD (PORCINE) 5000 UNITS/ML VIAL SC SCH ×3 (06:26→20:35)
[2018-09-26 06:34] LABS: CALCIUM LEVEL 9.1 MG/DL (8.8-10.2); CREATININE FOR GFR 1.23 MG/DL (0.55-1.30); GLOMERULAR FILTRATION RATE 44.5 (>32); POTASSIUM SERUM 3.8 MEQ/L (3.5-5.1)
[2018-09-26 08:13] LABS: SODIUM,RANDOM URINE 23 MEQ/L
[2018-09-26 09:08] LABS: OSMOLALITY URINE 122 MOSM/KG (500-800)
[2018-09-26] MEDS: MAGNESIUM OXIDE 400 MG TAB (MAG-OX) PO SCH (09:27)
[2018-09-26] MEDS: amLODIPine 5 MG TAB PO SCH ×2 (09:27→20:34)
[2018-09-26] MEDS: TIMOLOL MALEATE 0.5% OPHTH SOLN 5 ML OU SCH ×2 (09:28→20:35)
[2018-09-26] MEDS: ASPIRIN 81 MG ENTERIC TAB PO SCH (09:28)
[2018-09-26] MEDS: FUROSEMIDE 20 MG TAB PO SCH ×2 (09:28→17:58)
[2018-09-26] MEDS: LIDOCAINE 5% (LIDODERM) PATCH TD SCH (09:28)
[2018-09-26 10:19] LABS: CALCIUM LEVEL 9.1 MG/DL (8.8-10.2); CREATININE FOR GFR 1.22 MG/DL (0.55-1.30); GLOMERULAR FILTRATION RATE 44.9 (>32); POTASSIUM SERUM 3.7 MEQ/L (3.5-5.1)
[2018-09-26] MEDS: SODIUM CHLORIDE 1 GM TAB PO SCH ×2 (10:27→20:33)
--- NOTE | 2018-09-26 11:19 | IPNPDOC ---
Date Seen The patient was seen on 09/26/18. Progress Note SUBJECTIVE: Patient is an 82-year-old female with hypertensive urgency and left sided upper extremity paresthesias. Patient is evaluated at bedside this morning. Patient is laying in bed in the supine position. Her right shoulder pain has improved with the Lidocaine patch. She is disappointed that she has to remain in the hospital. No fevers, night sweats, chills, chest pain, shortness of breath. OBJECTIVE PHYSICAL EXAMINATION: VITAL SIGNS: Please see below. GENERAL: Elderly female, petite, alert and conversant, answers questions appropriately, no acute distress. HEENT: Atraumatic, normocephalic, PERRL, EOMI, oral mucosa appears pink and moist, tongue is midline, nasal septum appears midline, nares are patent. CARDIOVASCULAR: Regular rate and rhythm, normal S1 and S2, grade II/ systolic murmur appreciated most prominently over the 2nd intercostal space on the right with radiation to the carotids, no rub, click. RESPIRATORY: Clear to auscultation bilaterally, adequate inspiratory and expiratory airway excursion, symmetric airway entry, no focal consolidations, no wheeze, rhonchi, crackles. ABDOMINAL: Soft, non-tender, non-distended, no guarding, no rebound, bowel sounds appreciated. EXTREMITIES: No clubbing, no cyanosis, no peripheral edema. NEUROLOGICAL: CN II-XII grossly intact. PSYCHOLOGICAL: Mood and affect appropriate. LABORATORY DATA, IMAGING STUDIES, MICROBIOLOGY: Please see below. 1. MRA neck without and with contrast - There is mild atherosclerotic changes in the proximal right ICA estimated at less than 50 % narrowing which is consistent with a mild stenosis using NASCET criteria. There is moderate atherosclerotic changes in the proximal left ICA estimated at 50-60% narrowing which is consistent with a moderate stenosis using NASCET criteria. 2. CT head without contrast - There is minimal diffuse cerebral atrophy and vascular calcification. Otherwise negative. No acute intracranial lesion. 3. Portable chest x-ray - Negative portable chest. There is no interval change. 4. MRI head without contrast - Multiple foci of T2 lengthening are demonstrated in the periventricular and centrum semiovale white matter consistent with age- related small vessel gliosis. 5. MRA head without contrast - No significant stenosis, occlusion, or other findings. 6. Right complete shoulder x-ray - Acromioclavicular osteoarthritis. Calcific tendonitis. DVT prophylaxis ordered?: Heparin 5,000 units SQ Q8H. ASSESSMENT AND PLAN: This is an 82-year-old female with hypertensive urgency and left sided upper extremity paresthesias. PROBLEMS: 1. 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 Hypertensive urgency Cardiology consulted C/W Amlodipine 5mg PO BID, Carvedilol 3.125mg PO Q6H, Nitroglycerin 1gm TOP Q6HP D/C'd Valsartan 80mg PO BID (see #1) Restarted Furosemide 20mg PO BID D/C'd telemetry No added salt diet Current BP: 113/56 3. Left sided upper extremity paresthesias Resolved Cardiac markers trended and negative Imaging as noted above C/W Atorvastatin 4. Hypomagnesemia Mg level ordered C/W daily magnesium supplementation 5. Glaucoma C/W Latanoprost, Timolol 6. Right shoulder pain C/W Lidocaine patch DISPOSITION: Pending hyponatremia improvement. VS, I&O, 24H, [facility] Vital Signs/I&O Vital Signs Date Time Temp Pulse Resp B/P (MAP) Pulse Ox O2 Delivery O2 Flow Rate FiO2 09/26/18 09:27 113/56 09/26/18 07:53 96.9 54 18 94 09/23/18 20:13 Room Air I&O- Last 24 Hours up to 6 AM 09/26/18 06:00 Intake Total 750 ml Output Total 1675 ml Balance -925 ml Laboratory Data 24H LABS Laboratory Tests 2 09/25/18 12:01: Anion Gap 7L, Glomerular Filtration Rate 46.2, Blood Urea Nitrogen 31H, Creatinine 1.19, Sodium Level 125L, Potassium Level 4.0, Chloride Level 87L, Carbon Dioxide Level 31, Calcium Level 9.5 09/25/18 18:01: Anion Gap 6L, Glomerular Filtration Rate 42.9, Blood Urea Nitrogen 33H, Creatinine 1.27, Sodium Level 127L, Potassium Level 4.1, Chloride Level 90L, Carbon Dioxide Level 31, Calcium Level 9.5 09/25/18 23:42: Anion Gap 32H, Glomerular Filtration Rate 44.9, Blood Urea Nitrogen 32H, Creatinine 1.22, Sodium Level 149#H, Potassium Level 4.0, Chloride Level 88L, Carbon Dioxide Level 29, Calcium Level 9.1 09/26/18 04:57: Anion Gap 6L, Glomerular Filtration Rate 46.7, Blood Urea Nitrogen 30H, Creatinine 1.18, Sodium Level 126#L, Potassium Level 3.8, Chloride Level 90L, Carbon Dioxide Level 30, Calcium Level 8.8 09/26/18 05:34: Nucleated Red Blood Cells % (auto) 0.0, Anion Gap 6L, Glomerular Filtration Rate 44.5, Blood Urea Nitrogen 31H, Creatinine 1.23, Sodium Level 124L, Potassium Level 3.8, Chloride Level 90L, Carbon Dioxide Level 28, Calcium Level 9.1 09/26/18 07:38: Urine Random Osmolality 122L, Urine Random Sodium 23 09/26/18 09:33: Anion Gap 9, Glomerular Filtration Rate 44.9, Blood Urea Nitrogen 30H, Creatinine 1.22, Sodium Level 130L, Potassium Level 3.7, Chloride Level 92L, Carbon Dioxide Level 29, Calcium Level 9.1 CBC/BMP Laboratory Tests 09/25/18 12:01 Calcium Level 9.5 09/25/18 18:01 Calcium Level 9.5 09/25/18 23:42 Calcium Level 9.1 09/26/18 04:57 Calcium Level 8.8 09/26/18 05:34 Red Blood Count 4.20, Mean Corpuscular Volume 83.8, Mean Corpuscular Hemoglobin 29.0, Mean Corpuscular Hemoglobin Concent 34.7, Red Cell Distribution Width 13.1, Calcium Level 9.1 09/26/18 09:33 Calcium Level 9.1 MAXWELL MCCLENDON DO Sep 26, 2018 11:19
[2018-09-26 12:30] LABS: MAGNESIUM LEVEL 2.3 MG/DL (1.8-2.4)
[2018-09-26 14:35] LABS: CALCIUM LEVEL 9.4 MG/DL (8.8-10.2); CREATININE FOR GFR 1.12 MG/DL (0.55-1.30); GLOMERULAR FILTRATION RATE 49.6 (>32); POTASSIUM SERUM 4.3 MEQ/L (3.5-5.1)
[2018-09-26 18:17] LABS: CALCIUM LEVEL 9.2 MG/DL (8.8-10.2); CREATININE FOR GFR 1.11 MG/DL (0.55-1.30); GLOMERULAR FILTRATION RATE 50.1 (>32); POTASSIUM SERUM 4.1 MEQ/L (3.5-5.1)
[2018-09-26] MEDS: ATORVASTATIN 20 MG TAB PO SCH (20:34)
--- NOTE | 2018-09-26 20:34 | IPN ---
DATE: 09/26/2018 SUBJECTIVE The patient was seen and examined at the bedside today morning. I was actually called for her serial lab results overnight. I am was called around 4 o'clock today morning. The patient's sodium had bumped from 127 to 149 on 11 o'clock labs. I was not aware of that lab. When I was called 5 hours had already passed. Because of acute rise in the sodium level and since patient was already given a dose of tolvaptan the day before, immediately the patient was given a dose of D5W 500 mL bolus and she was started on D5W at 250 mL an hour. Repeat lab was drawn right away and that lab results showed that the patient's sodium level was actually 126. The patient denies any active complaints at this point. She is afebrile, hemodynamically stable. Blood pressures are controlled. OBJECTIVE Vital signs: Temperature is 96.9 degrees Fahrenheit. Blood pressure 109/54, pulse is 54, respiratory rate of 18, saturating 94% on room air. Intake and output: Urine output recorded is 1200 mL yesterday 775 mL so far today since overnight. Weight in the bed scale is 73.2 kg. PHYSICAL EXAMINATION General: The patient is awake, alert, oriented times three, laying in bed in no apparent distress. Head and neck examination: Extraocular muscles intact. Pupils equally round and reactive to light. Mucous membranes are moist. Neck is supple. There is no JVD. Cardiovascular: S1, S2, regular rate. No edema of the bilateral extremities. Respiratory: Chest is clear to auscultation bilaterally. Bilateral equal air entry. No rales or rhonchi. Abdomen: Soft. Positive bowel sounds. Nontender. No organomegaly. Musculoskeletal: No clubbing or cyanosis. Pulses are 2+. 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 Power is 5/5 in all extremities. LAB REVIEW: CBC showed a WBC of 7, hemoglobin 12.2, platelets are 335. Latest urine osmolality is 122. Serum sodium is 23. Repeat BMP done at 9 o'clock today morning showed a sodium of 130, potassium of 3.7, chloride 92, bicarb 29, BUN 13, creatinine of 1.2. CURRENT INPATIENT MEDICATIONS: The patient's medications were all reviewed by me. She has been started on Lasix 20 mg by mouth twice a day and salt tablet 1 gram by mouth twice a day. No other change in the medications today as compared with yesterday apart from the IV D5W that was given early in the morning. ASSESSMENT/PLAN 1. Hyponatremia. The patient has SIADH. She was given dose of tolvaptan two days ago, 15 mg and 30 mg yesterday. Her angiotensin receptor blockers were stopped. A sodium level of 149 last night was probably a lab error. Repeat labs showed her sodium was 126. She has been started on Lasix 20 mg by mouth twice a day along with salt tablet 1 gram by mouth twice a day. Avoid further use of angiotensin receptor blockers or thiazide diuretics. The patient's sodium is expected to improve within the normal range over the next 24 hours. 2. Essential hypertension. Continue current dose of amlodipine and Coreg. Avoid use of Diovan. 3. Chronic kidney disease stage III. The patient's creatinine has plateaued at around 1.1 to 1.2. Renal function is stable. Okay to continue current dose of medications.
[2018-09-26] MEDS: **NOTE PATIENT COMMENT** MISC XX SCH (20:35)
[2018-09-26] MEDS: LATANOPROST 0.005% OPHTH SOLN 2.5 ML OU SCH (20:35)
[2018-09-26 22:34] LABS: CALCIUM LEVEL 9.5 MG/DL (8.8-10.2); CREATININE FOR GFR 1.03 MG/DL (0.55-1.30); GLOMERULAR FILTRATION RATE 54.6 (>32); POTASSIUM SERUM 3.8 MEQ/L (3.5-5.1)
[2018-09-27 04:00] VITALS: BP 134/61
[2018-09-27] MEDS: CARVedilol 3.125 MG TAB PO SCH ×2 (05:31)
[2018-09-27] MEDS: SLF 3 ML SYR IV SCH (05:31)
[2018-09-27] MEDS: HEPARIN SOD (PORCINE) 5000 UNITS/ML VIAL SC SCH (05:31)
[2018-09-27 05:50] LABS: HEMATOCRIT 36.2 % (36.0-47.0); HEMOGLOBIN 12.3 g/dl (12.0-15.5); MEAN CORPUSCULAR HEMOGLOBIN 28.5 pg (27.0-33.0); PLATELET COUNT, AUTOMATED 361 10^3/uL (150-450); RED BLOOD COUNT 4.31 10^6/uL (4.00-5.40); WHITE BLOOD COUNT 9.6 10^3/uL (4.0-10.0)
[2018-09-27 06:14] LABS: CALCIUM LEVEL 9.2 MG/DL (8.8-10.2); CREATININE FOR GFR 1.05 MG/DL (0.55-1.30); GLOMERULAR FILTRATION RATE 53.4 (>32); POTASSIUM SERUM 4.1 MEQ/L (3.5-5.1)
[2018-09-27] MEDS ORDERED: AMLO10TA5 PO (07:43)
[2018-09-27] MEDS ORDERED: SODI1TAB6 PO (07:43)
[2018-09-27] MEDS ORDERED: CARV6.25 PO (07:43)
[2018-09-27] MEDS ORDERED: FURO20TA2 PO (07:43)
[2018-09-27] MEDS ORDERED: AMLO5TAB6 PO (07:50)
[2018-09-27 08:00] VITALS: BP 124/58
[2018-09-27] MEDS: FUROSEMIDE 20 MG TAB PO SCH (08:00)
[2018-09-27] MEDS: ASPIRIN 81 MG ENTERIC TAB PO SCH (08:00)
[2018-09-27] MEDS: TIMOLOL MALEATE 0.5% OPHTH SOLN 5 ML OU SCH (08:00)
[2018-09-27] MEDS: SODIUM CHLORIDE 1 GM TAB PO SCH (08:00)
[2018-09-27] MEDS: MAGNESIUM OXIDE 400 MG TAB (MAG-OX) PO SCH (08:00)
[2018-09-27] MEDS: LIDOCAINE 5% (LIDODERM) PATCH TD SCH (08:01)
--- NOTE | 2018-09-27 09:12 | DS.PDOC ---
Discharge Summary General Date of Admission Sep 23, 2018 at 18:05 Date of Discharge 09/27/2018 Primary Care Physician: Akiko Quintanilla Attending Physician: KATHIA SAUNDERS DO Specialist/Consultants Involve: Matt Oscar Specialist/Consultants Involve Correctional Officer Captain: Dr. Jain Discharge Summary PROCEDURES PERFORMED DURING STAY: None. ADMITTING DIAGNOSES: 1. TIA 2. HTN urgency 3. Heart murmur with HTN 4. Hyponatremia DISCHARGE DIAGNOSES: 1. 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 Hypertensive urgency 3. Left sided extremity paresthesias secondary to TIA 4. Hypomagnesemia 5. Glaucoma 6. Right shoulder pain 7. Aortic stenosis COMPLICATIONS/CHIEF COMPLAINT: Hypertension Hyponatremia Tia. HISTORY OF PRESENT ILLNESS: Ms. Waters is an 82-year-old female with history of HTN presented to ED with 10 minutes of parathesia to LUE which resolved. States started today, exacerbated by nothing. improved spontaneously after 10 minutes. States saw cardiology last week and BP medications adjusted. Since then patient states unable to control BP. She states cardizem changed to norvasc and changes to losartan and water pill. The was no associated TRENT, vision changes associated with the left arm parathesia. HOSPITAL COURSE: Patient was admitted for further evaluation and treatment. O btained imaging as noted below. Consulted cardiology with recommendations to continue Amlodipine, Carvedilol. Provided Nitroglycerin patch as needed and scheduled Valsartan. Received Furosemide and Hydrazaline. Discontinued HCTZ and placed patient on fluid restriction. Obtain urinary studies. Consulted nephrology. Received two doses of Tolvaptan. Discontinued Valsartan as SIADH thought to be exacerbated by ACEi/ARB/HCTZ. Noted an abnormally elevated Na of 149. Emergently started dextrose/H2O bolus with maintenance at 250 mLs/hr. Repeated Na levels revealed hyponatremia. No changes to medications or other sources for abnormally elevated Na. Thought to be a lab error. Started low dose Lasix and salt tabs. Supplemented magnesium. Patient improved clinically throughout hospitalization and was stable at time of discharge. DISCHARGE MEDICATIONS: Please see below. ALLERGIES: Please see below. PHYSICAL EXAMINATION ON DISCHARGE: VITAL SIGNS: Please see below. GENERAL: Elderly female, petite, alert and conversant, answers questions appropriately, no acute distress. HEENT: Atraumatic, normocephalic, PERRL, EOMI, oral mucosa appears pink and moist, tongue is midline, nasal septum appears midline, nares are patent. CARDIOVASCULAR: Regular rate and rhythm, normal S1 and S2, grade II/ systolic murmur appreciated most prominently over the 2nd intercostal space on the right with radiation to the carotids, no rub, click. RESPIRATORY: Clear to auscultation bilaterally, adequate inspiratory and expiratory airway excursion, symmetric airway entry, no focal consolidations, no wheeze, rhonchi, crackles. ABDOMINAL: Soft, non-tender, non-distended, no guarding, no rebound, bowel sounds appreciated. EXTREMITIES: No clubbing, no cyanosis, no peripheral edema. NEUROLOGICAL: CN II-XII grossly intact. PSYCHOLOGICAL: Mood and affect appropriate. LABORATORY DATA: Please see below. IMAGIN. MRA neck without and with contrast - There is mild atherosclerotic changes in the proximal right ICA estimated at less than 50 % narrowing which is consistent with a mild stenosis using NASCET criteria. There is moderate atherosclerotic changes in the proximal left ICA estimated at 50-60% narrowing which is consistent with a moderate stenosis using NASCET criteria. 2. CT head without contrast - There is minimal diffuse cerebral atrophy and vascular calcification. Otherwise negative. No acute intracranial lesion. 3. Portable chest x-ray - Negative portable chest. There is no interval change. 4. MRI head without contrast - Multiple foci of T2 lengthening are demonstrated in the periventricular and centrum semiovale white matter consistent with age- related small vessel gliosis. 5. MRA head without contrast - No significant stenosis, occlusion, or other find ings. 6. Right complete shoulder x-ray - Acromioclavicular osteoarthritis. Calcific tendonitis. PROGNOSIS: Stable. ACTIVITY: As tolerated. DIET: No added salt. DISCHARGE PLAN: Problem: Managing health at home Goal: Improve health & wellness Instructions: Follow DC Instruction DISPOSITION: Home. DISCHARGE INSTRUCTIONS: 1. Dr. Quintanilla - appointment already scheduled for November 2. Dr. Jain in [address] Hernandez in 3-4 weeks; appointment already scheduled for 05 November 2018 4. Start taking low dose Lasix and salt tabs 5. Start taking Carvedilol twice daily 6. Increase Amlodipine to 10mg daily, but only take it when SBP > 120 7. Take all other medications as prescribed 8. Return to the nearest Emergency Department should your symptoms worsen or persist ITEMS TO FOLLOWUP ON ON OUTPATIENT: 1. HTN 2. Low sodium DISCHARGE CONDITION: Stable. TIME SPENT ON DISCHARGE: 35 minutes. Vital Signs/I&Os Vital Signs Date Time Temp Pulse Resp B/P (MAP) Pulse Ox O2 Delivery O2 Flow Rate FiO2 09/27/18 08:00 96.9 60 17 124/58 (80) 98 09/23/18 20:13 Room Air I&O- Last 24 Hours up to 6 AM 09/27/18 06:00 Intake Total 1100 ml Output Total 1600 ml Balance -500 ml Laboratory Data Labs 24H Laboratory Tests 2 09/26/18 09:33: Anion Gap 9, Glomerular Filtration Rate 44.9, Blood Urea Nitrogen 30H, Creatinine 1.22, Sodium Level 130L, Potassium Level 3.7, Chloride Level 92L, Carbon Dioxide Level 29, Calcium Level 9.1 09/26/18 11:54: Magnesium Level 2.3 09/26/18 13:57: Anion Gap 7L, Glomerular Filtration Rate 49.6, Blood Urea Nitrogen 31H, Creatinine 1.12, Sodium Level 129L, Potassium Level 4.3, Chloride Level 92L, Carbon Dioxide Level 30, Calcium Level 9.4 09/26/18 17:42: Anion Gap 7L, Glomerular Filtration Rate 50.1, Blood Urea Nitrogen 30H, Creatinine 1.11, Sodium Level 130L, Potassium Level 4.1, Chloride Level 92L, Carbon Dioxide Level 31, Calcium Level 9.2 09/26/18 20:45: Urine Random Osmolality 221L 09/26/18 21:58: Anion Gap 6L, Glomerular Filtration Rate 54.6, Blood Urea Nitrogen 31H, Creatinine 1.03, Sodium Level 131L, Potassium Level 3.8, Chloride Level 94L, Carbon Dioxide Level 31, Calcium Level 9.5 09/27/18 05:07: Anion Gap 8, Glomerular Filtration Rate 53.4, Blood Urea Nitrogen 30H, Creatinine 1.05, Sodium Level 132L, Potassium Level 4.1, Chloride Level 96L, Carbon Dioxide Level 28, Calcium Level 9.2, Nucleated Red Blood Cells % (auto) 0.0 CBC/BMP Laboratory Tests 09/26/18 09:33 Calcium Level 9.1 09/26/18 11:54 09/26/18 13:57 Calcium Level 9.4 09/26/18 17:42 Calcium Level 9.2 09/26/18 21:58 Calcium Level 9.5 09/27/18 05:07 Calcium Level 9.2, Red Blood Count 4.31, Mean Corpuscular Volume 84.0, Mean Corpuscular Hemoglobin 28.5, Mean Corpuscular Hemoglobin Concent 34.0, Red Cell Distribution Width 13.2 Discharge Medications Scheduled Amlodipine Besylate (Amlodipine Besylate) 5 Mg Tablet, 10 MG PO DAILY ONLY TAKE WHEN SYSTOLIC BLOOD PRESSURE > 120 Aspirin (Ecotrin) 81 Mg Tablet.dr, 81 MG PO DAILY, (Reported) Calcium Polycarbophil (Fibercon) 625 Mg Tablet, 625 MG PO DAILY, (Reported) Carvedilol (Carvedilol) 6.25 Mg Tablet, 6.25 MG PO BID Cholecalciferol (Vitamin D3) (Vitamin D3) 5,000 Unit Capsule, 5,000 UNIT PO QPM, (Reported) Ezetimibe/Simvastatin (Ezetimibe-Simvastatin 10-20 mg) 1 Each Tablet, 1 TAB PO DAILY, (Reported) PATIENT HAS BEEN OUT OF THIS MEDICATION Furosemide (Furosemide) 20 Mg Tablet, 20 MG PO BID@,17 Garlic (Garlic) 1 Each Tablet, 150 MG PO DAILY, (Reported) Hypromellose (Genteal Tears Severe) 10 Gm Gel..gram., 1 INCH OU QHS, (Reported) Multivitamin (Multi-Vitamin Daily) 1 Each Tablet, 1 TAB PO DAILY, (Reported) Salmeterol/Fluticasone (Advair 250-50 Diskus) 1 Each Blst.w.dev, 1 PUFF INH QHS, (Reported) PATIENT STATES SHE ONLY TAKES ONE PUFF DAILY Sodium Chloride (Sodium Chloride) 1 Gm Tablet, 1 GM PO BID Timolol Maleate (Timolol Maleate) 0.5% 5ML Drops, 1 DROP OU BID, (Reported) Travoprost (Travatan Z) 0.004% 2.5ML Drops, 1 DROP OU QHS, (Reported) Ubidecarenone (Co Q-10) 200 Mg Capsule, 200 MG PO QPM, (Reported) Scheduled PRN Albuterol Sulfate (Ventolin Hfa) 18 Gm Hfa.aer.ad, 2 PUFF INH Q6H PRN for SHORTNESS OF BREATH, (Reported) Naproxen Sodium (Aleve) 220 Mg Tablet, 220 MG PO BID PRN for PAIN, (Reported) Polyvinyl Alcohol/Povidone/Pf (Refresh Classic Eye Drops) 1 Each Droperette, 1 DROP OU PRN PRN for DRY EYES, (Reported) Allergies Coded Allergies: lisinopril (Verified Adverse Reaction, Unknown, cough, 09/23/18) promethazine (Verified Adverse Reaction, Unknown, hallucinations, 09/23/18) MAXWELL MCCLENDON DO Sep 27, 2018 09:12
[2018-09-27 10:00] VITALS: BP 128/60
[2018-09-27] MEDS: amLODIPine 5 MG TAB PO SCH (10:00)
[2018-09-27 10:24] VITALS: BP 128/60
--- NOTE | 2018-09-27 13:38 | IPN ---
DATE OF SERVICE: 09/27/2018 SUBJECTIVE: The patient was seen and examined at the bedside today morning. She feels much better. Her blood pressure is controlled. Sodium has improved to 132. She was started on loop diuretics and salt tablet yesterday, which has helped bring her sodium levels. The patient reports that she is getting ready to be discharged today. OBJECTIVE: VITAL SIGNS: Temperature is 96.9 degrees Fahrenheit, blood pressure 124/58, pulse is 60, respiratory of 17, saturating 98% on room air. INTAKE AND OUTPUT: Urine output recorded as 2.13 yesterday, 200 mL so far today since overnight. Weight on the bed scale is 74 kg. PHYSICAL EXAMINATION: General: The patient is awake, alert, oriented times three, sitting on the sofa in no apparent distress. Head and neck exam: Extraocular muscles intact. Pupils equally round and reactive to light. Mucous membranes are moist. Neck is supple. There is no jugular venous distention (JVD). Cardiovascular: S1, S2 regular rate. No edema of the bilateral lower extremities. Respiratory: Chest is clear to auscultation bilaterally. Bilateral equal air entry. No rales or rhonchi. Abdomen: Soft. Positive bowel sounds. Nontender. Musculoskeletal: No clubbing or cyanosis. Pulses are 2+. GROUP HOME MANAGER: No focal deficit. Power is 5/5 in all extremities. LAB REVIEW: CBC showed WBC of 9.6, hemoglobin 12.3, platelets are 361. BMP showed sodium 132, potassium 4.1, chloride 96, bicarb 28, BUN 30, creatinine is 1.05. CURRENT INPATIENT MEDICATIONS: The patient's medications were all reviewed by me. She continues to be on furosemide 20 mg twice a day and salt tablet 1 tablet p.o. twice a day. No other change in the medications today as compared with yesterday. ASSESSMENT/PLAN: 1. Hyponatremia. The patient is being treated as SIADH. She was started on Lasix 20 mg twice a day and salt tablet 1 gram p.o. twice a day. Sodium level has nicely improved to 132. Avoid further use of WESLEY, ARB, or thiazide diuretics in the future. Continue current dose and follow-up with nephrology within 1 week of discharge from the hospital. 2. Essential hypertension. Blood pressure is controlled with Coreg and amlodipine, and the addition of loop diuretic. 3. Chronic kidney disease, stage III. Renal function is stable. Creatinine has been fluctuating at around 1.0. DISPOSITION: It is okay to discharge the patient from a nephrology standpoint. Follow-up with nephrology as an outpatient.
== END 2018-09-27 11:35 | disposition home or self-care (01) | DRG 305 ==
LOC: M ED 15:28 → M PCU 18:05 → M ED INP 18:05 → M PCU 23:51
PROVIDERS: ADMIT Family Medicine; ATTEND Family Medicine
DX: I16.0 Hypertensive urgency (principal); E87.1 Hypo-osmolality and hyponatremia; E22.2 Syndrome of inappropriate secretion of antidiuretic hormone; G45.9 Transient cerebral ischemic attack, unspecified; N17.9 Acute kidney failure, unspecified; N18.3 Chronic kidney disease, stage 3 (moderate); I35.0 Nonrheumatic aortic (valve) stenosis; E83.42 Hypomagnesemia; R73.9 Hyperglycemia, unspecified; Z79.899 Other long term (current) drug therapy; Z79.82 Long term (current) use of aspirin; Z88.8 Allergy status to other drugs, medicaments and biological substances; H40.9 Unspecified glaucoma; E78.00 Pure hypercholesterolemia, unspecified; E66.9 Obesity, unspecified

== ENCOUNTER → 2019-05-04 | Outpatient (REF) | payer MEDICARE, OTHER ==
[~2019-05-04] MED LIST: ADV250INH INH; ALEV220T22 PO; AMLO10TA5 PO; AMLO5TAB6 PO; CARV6.25 PO; COQ-100C5 PO; COQ1200C PO; D3 U5000 PO; ECOT81TA5 PO; EZET1TAB4 PO; FIBE625T PO; FURO20TA2 PO; GENT0.3G OU; INDA125TA PO; MULT1TAB8 PO; REFR1DRO8 OU; SM G150T PO; SODI1TAB6 PO; TIMO0.5S29 OU; TRAV04OPD OU; VALS1TAB68 PO; VENTAER INH
[2019-05-04 20:03] LABS: CORTISOL BASELINE 18.3 UG/DL (4.3-22.4); FOLLICLE STIMULATING HORMONE 32.3 mIU/mL; LUTEINIZING HORMONE 24.5 mIU/mL; PROLACTIN 1.5 NG/ML; RHEUMATOID FACTOR QUANT < 10.0 IU/ML (<15.0); VITAMIN B12 LEVEL 859 PG/ML (247-911)
[2019-05-09 00:06] LABS: Lyme Disease IgG/IgM Antibodie <0.91 ISR (0.00-0.90); Lyme Disease IgM Ab Quantitati <0.80 index (0.00-0.79)
== END ==
LOC: M LAB REF 17:20
PROVIDERS: ATTEND Internal Medicine
DX: R53.83 Other fatigue (principal); R20.2 Paresthesia of skin; M79.10 Myalgia, unspecified site; E23.6 Other disorders of pituitary gland

== ENCOUNTER → 2019-05-05 | Outpatient (CLI) | payer MEDICARE, OTHER ==
--- NOTE | 2019-05-05 18:55 | REP ---
CHEST: Two views. There is no evidence of acute infiltrate. No pleural effusion is seen. The heart is normal in size. The mediastinal silhouette is unremarkable. The visualized osseous structures are intact. IMPRESSION: No acute pulmonary disease. Electronically Signed by Dudley Mckeon MD 05/06/2019 10:31 P
== END ==
LOC: M ADAMS 17:16
PROVIDERS: ATTEND Internal Medicine
DX: I11.0 Hypertensive heart disease with heart failure (principal); I50.32 Chronic diastolic (congestive) heart failure

== ENCOUNTER → 2019-05-12 | Outpatient (REF) | payer MEDICARE, OTHER ==
[2019-05-15 00:06] LABS: ANTINUCLEAR ANTIBODIES DIRECT Negative (Negative); CYCLIC CITRULLINATED PEPTIDE 7 units (0-19)
== END ==
LOC: M LAB REF 17:08
PROVIDERS: ATTEND Internal Medicine
DX: M19.90 Unspecified osteoarthritis, unspecified site (principal); R79.82 Elevated C-reactive protein (CRP); R53.81 Other malaise

== ENCOUNTER → 2019-05-19 | Outpatient (REF) | payer MEDICARE, OTHER | LOC: M LAB REF 17:20 | PROVIDERS: ATTEND Internal Medicine | DX: M35.3 Polymyalgia rheumatica (principal) ==

== ENCOUNTER → 2019-06-02 | Outpatient (REF) | payer MEDICARE, OTHER | LOC: M LAB REF 16:22 | PROVIDERS: ATTEND Internal Medicine | DX: M35.3 Polymyalgia rheumatica (principal) ==

== ENCOUNTER → 2019-09-22 | Outpatient (REF) | payer MEDICARE, OTHER ==
[~2019-09-22] MED LIST changes: -AMLO10TA5 PO; +AMLO1TAB24 PO; +AMLO1TAB25 PO; -AMLO5TAB6 PO
== END ==
LOC: M LAB REF 11:31
PROVIDERS: ATTEND Internal Medicine
DX: M35.3 Polymyalgia rheumatica (principal)

== ENCOUNTER → 2019-11-09 | Outpatient (REF) | payer MEDICARE, OTHER | LOC: M LAB REF 09:14 | PROVIDERS: ATTEND Internal Medicine | DX: M35.3 Polymyalgia rheumatica (principal); M25.512 Pain in left shoulder ==

== ENCOUNTER → 2019-11-18 | Outpatient (REF) | payer MEDICARE, OTHER | LOC: M LAB REF 16:25 | PROVIDERS: ATTEND Internal Medicine | DX: M35.3 Polymyalgia rheumatica (principal) ==

== ENCOUNTER → 2019-12-30 | Outpatient (CLI) | payer MEDICARE, OTHER ==
[2019-12-30 16:38] LABS: C REACTIVE PROTEIN QUANTITATIV 0.77 MG/DL (0.00-0.30); URIC ACID 5.1 MG/DL (2.6-6.0)
== END ==
LOC: M LABDRWAD 13:35
PROVIDERS: ATTEND Internal Medicine
DX: M25.50 Pain in unspecified joint (principal)

== ENCOUNTER → 2019-12-30 | Outpatient (CLI) | payer MEDICARE, BC, OTHER ==
--- NOTE | 2020-01-07 15:53 | REP ---
RIGHT HIP SERIES CLINICAL HISTORY: Pain. TECHNIQUE: Two views of the right hip are performed. FINDINGS: I see no acute fracture or dislocation. The hip joint is severely narrowed with subchondral sclerosis on both sides of the joint. There is moderate acetabular spurring. In addition, there is irregularity of the articular surface of the femoral head with ill-defined subcortical lucency in the femoral head. 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 IMPRESSION: Fairly severe arthritic changes right hip joint. 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 MTDD
--- NOTE | 2020-01-07 15:53 | REP ---
LEFT SHOULDER SERIES: 3-VIEWS HISTORY: Pain in the left shoulder. FINDINGS: There is considerable inferior acromion process spurring. There is soft tissue calcific deposit at the tip of the acromion process. There is also osteoarthritic hypertrophy and narrowing of the acromioclavicular joint. Glenohumeral articulation is normally aligned. There is diffuse osteopenia. No erosive change is seen. IMPRESSION: Diffuse osteopenia. Acromioclavicular (AC) joint osteoarthritis, acromion process spurring, and periarticular soft tissue calcification. MTDD
== END ==
LOC: M ADAMS 13:31
PROVIDERS: ATTEND Internal Medicine
DX: M16.11 Unilateral primary osteoarthritis, right hip (principal); M85.812 Other specified disorders of bone density and structure, left shoulder; M19.012 Primary osteoarthritis, left shoulder; M25.712 Osteophyte, left shoulder; M25.551 Pain in right hip; M25.512 Pain in left shoulder
CPT/HCPCS: 36415; 73030; 73502; 84550; 85652; 86140; G0463

== ENCOUNTER → 2020-01-12 | Outpatient (CLI) | payer MEDICARE, BC, OTHER ==
--- NOTE | 2020-01-18 10:15 | REP ---
MRI OF THE RIGHT HIP HISTORY: Pain, possible AVN. FINDINGS: Multiple sequences obtained in the axial, coronal, and sagittal planes. There are areas of mixed high and low signal on T2 weighted images characteristic of avascular necrosis. This is advanced stage 4 avascular necrosis with flattening of the femoral head and secondary severe arthritic change of the right hip joint. There is mild subchondral marrow edema centrally in the acetabulum. There is diffuse marrow edema throughout the right femoral head extending into the intertrochanteric region. There is diffuse fraying and tearing of the right hip labrum. There is a moderate joint effusion. Proximal left femur demonstrates no abnormal bone marrow signal. There is mild fluid and edema along the greater trochanters bilaterally compatible with mild bilateral greater trochanteric tendinobursitis. Incidental note is made of sigmoid diverticulosis. No free fluid or mass is seen in the visualized pelvis. 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 Diffuse tearing and fraying of the right hip labrum. Moderate joint effusion. Note is also made of mild bilateral greater trochanteric tendinobursitis. MTDD
== END ==
LOC: M RAD 11:17
PROVIDERS: ATTEND Internal Medicine
DX: M16.11 Unilateral primary osteoarthritis, right hip (principal)

== ENCOUNTER → 2020-02-19 | Outpatient (REF) | payer MEDICARE, OTHER ==
[2020-02-19 17:01] LABS: HEMATOCRIT 31.4 % (36.0-47.0); HEMOGLOBIN 9.9 g/dl (12.0-15.5); MEAN CORPUSCULAR HEMOGLOBIN 30.6 pg (27.0-33.0); MEAN CORPUSCULAR HGB CONC 31.5 g/dl (32.0-36.5); MEAN CORPUSCULAR VOLUME 96.9 fl (80.0-96.0); PLATELET COUNT, AUTOMATED 521 10^3/uL (150-450); RED BLOOD COUNT 3.24 10^6/uL (4.00-5.40); WHITE BLOOD COUNT 10.3 10^3/uL (4.0-10.0)
[2020-02-19 17:13] LABS: CALCIUM LEVEL 8.8 MG/DL (8.8-10.2); CREATININE FOR GFR 1.06 MG/DL (0.55-1.30); GLOMERULAR FILTRATION RATE 52.6 (>32); MAGNESIUM LEVEL 1.9 MG/DL (1.8-2.4); POTASSIUM SERUM 4.6 MEQ/L (3.5-5.1)
== END ==
LOC: M SHH 16:30
PROVIDERS: ATTEND Internal Medicine
DX: E83.42 Hypomagnesemia (principal); I12.9 Hypertensive chronic kidney disease with stage 1 through stage 4 chronic kidney disease, or unspecified chronic kidney disease

== ENCOUNTER → 2020-04-25 | Outpatient (REF) | payer MEDICARE, OTHER ==
[2020-04-26 14:05] LABS: BASO # 0.1 10^3/uL (0.0-0.2); BASO % 0.6 % (0.0-1.0); EOS # 0.1 10^3/uL (0.0-0.5); EOS % 0.5 % (0.0-3.0); HEMATOCRIT 44.9 % (36.0-47.0); LYMPH # 0.5 10^3/uL (1.5-5.0); LYMPH % 4.8 % (24.0-44.0); MEAN CORPUSCULAR HEMOGLOBIN 29.2 pg (27.0-33.0); MEAN CORPUSCULAR HGB CONC 31.2 g/dl (32.0-36.5); MEAN CORPUSCULAR VOLUME 93.5 fl (80.0-96.0); MONO # 0.4 10^3/uL (0.0-0.8); MONO % 3.6 % (0.0-5.0); NEUTROPHILS # 9.9 10^3/uL (1.5-8.5); NEUTROPHILS % 89.7 % (36.0-66.0); PLATELET COUNT, AUTOMATED 451 10^3/uL (150-450); WHITE BLOOD COUNT 11.1 10^3/uL (4.0-10.0)
[2020-04-26 14:42] LABS: ALBUMIN 4.1 GM/DL (3.2-5.2); BILIRUBIN,TOTAL 0.6 MG/DL (0.2-1.0); C REACTIVE PROTEIN QUANTITATIV 0.43 MG/DL (0.00-0.30); CALCIUM LEVEL 10.8 MG/DL (8.8-10.2); CHOLESTEROL RISK RATIO 2.695 (<5); CREATININE FOR GFR 1.2 MG/DL (0.55-1.30); GLOMERULAR FILTRATION RATE 45.6 (>32); MAGNESIUM LEVEL 2.4 MG/DL (1.8-2.4); POTASSIUM SERUM 5.8 MEQ/L (3.5-5.1); THYROID STIMULATING HORMONE 3.02 uIU/ML (0.358-3.740); TOTAL PROTEIN 6.9 GM/DL (6.4-8.2)
[2020-04-26 15:21] LABS: ERYTHROCYTE SEDIMENTATION RATE 15 mm/hr (0-30)
== END ==
LOC: M LABDRWAD 12:43
PROVIDERS: ATTEND Internal Medicine
DX: E78.00 Pure hypercholesterolemia, unspecified (principal); E87.1 Hypo-osmolality and hyponatremia; D50.9 Iron deficiency anemia, unspecified

== ENCOUNTER → 2020-08-15 | Outpatient (REF) | payer MEDICARE, OTHER ==
[~2020-08-15] MED LIST changes: -EZET1TAB4 PO; +EZET1TAB96 PO
== END ==
LOC: M LAB REF 16:44
PROVIDERS: ATTEND Internal Medicine
DX: M35.3 Polymyalgia rheumatica (principal)

== ENCOUNTER → 2020-09-02 | Outpatient (CLI) | payer MEDICARE, BC, OTHER ==
--- NOTE | 2020-09-02 14:23 | REP ---
INDICATION: CAROTID STENOSIS COMPARISON: None. TECHNIQUE: Mckeon scale and color Doppler evaluation using linear high frequency transducer Findings: FINDINGS: Two-dimensional mckeon scale and color images demonstrate mild to moderate mixed atheromatous plaquing with laminar flow and mild narrowing through the bilateral proximal internal carotid arteries. Color Doppler interrogation demonstrates normal arterial wave patterns and velocities with elements of spectral broadening. Normal flow direction is appreciated in the bilateral vertebral arteries. ICA peak systolic velocity: Right 119 cm/s; Left 148 cm/s ICA diastolic velocity: Right 26.1 cm/s; Left 26.9 cm/s ECA peak systolic velocity: Right 185 cm/s; Left 191 cm/s CCA peak systolic velocity: Right 80.1 cm/s; Left 88.9 cm/s ICA/CCA ratio: Right 1.49 cm/s; Left 1.66 cm/s IMPRESSION: Bilateral narrowing felt to be at the less than 50% range. <Electronically signed by Sandeep Nova > 09/02/20 [id number]
== END ==
LOC: M RAD 12:57
PROVIDERS: ATTEND Internal Medicine
DX: I65.29 Occlusion and stenosis of unspecified carotid artery (principal)

== ENCOUNTER → 2020-11-28 | Outpatient (REF) | payer MEDICARE, BC, OTHER | LOC: M LAB REF 16:32 | PROVIDERS: ATTEND Internal Medicine | DX: M35.3 Polymyalgia rheumatica (principal) ==

== ENCOUNTER → 2020-12-20 | Outpatient (REF) | payer MEDICARE, OTHER ==
[~2020-12-20] MED LIST changes: -GENT0.3G OU; +HYPR10GE OU
== END ==
LOC: M LAB REF 17:13
PROVIDERS: ATTEND Internal Medicine Nephrology
DX: N18.32 Chronic kidney disease, stage 3b (principal)

== ENCOUNTER → 2021-03-08 | Outpatient (REF) | payer MEDICARE, OTHER | LOC: M LAB REF 16:32 | PROVIDERS: ATTEND Internal Medicine | DX: M35.3 Polymyalgia rheumatica (principal) ==

== ENCOUNTER → 2021-06-08 | Outpatient (REF) | payer MEDICARE, OTHER ==
[2021-06-08 16:58] LABS: C REACTIVE PROTEIN QUANTITATIV 0.93 MG/DL (0.00-0.30); RHEUMATOID FACTOR QUANT < 10.0 IU/ML (<15.0)
== END ==
LOC: M LAB REF 16:10
PROVIDERS: ATTEND Internal Medicine
DX: M19.90 Unspecified osteoarthritis, unspecified site (principal); M35.3 Polymyalgia rheumatica

== ENCOUNTER → 2021-06-15 | Outpatient (CLI) | payer MEDICARE, OTHER | LOC: M WUC 14:00 | PROVIDERS: ATTEND Internal Medicine | DX: M17.0 Bilateral primary osteoarthritis of knee (principal) ==

== ENCOUNTER → 2021-09-06 | Outpatient (CLI) | payer MEDICARE, OTHER ==
[2021-09-06 16:23] LABS: BASO # 0.1 10^3/uL (0.0-0.2); EOS # 0.4 10^3/uL (0.0-0.5); EOS % 5.9 % (0.0-3.0); HEMATOCRIT 36.2 % (36.0-47.0); LYMPH # 1.3 10^3/uL (1.5-5.0); LYMPH % 17.8 % (24.0-44.0); MEAN CORPUSCULAR HEMOGLOBIN 29.9 pg (27.0-33.0); MEAN CORPUSCULAR HGB CONC 33.1 g/dl (32.0-36.5); MEAN CORPUSCULAR VOLUME 90.3 fl (80.0-96.0); MONO # 0.5 10^3/uL (0.0-0.8); MONO % 6.6 % (2.0-8.0); NEUTROPHILS % 68.4 % (36.0-66.0); PLATELET COUNT, AUTOMATED 439 10^3/uL (150-450); RED BLOOD COUNT 4.01 10^6/uL (4.00-5.40); WHITE BLOOD COUNT 7.3 10^3/uL (4.0-10.0)
[2021-09-06 16:25] LABS: APPEARANCE, URINE HAZY (CLEAR); BACTERIA, URINE AUTO 1+ (NEGATIVE); BILIRUBIN, URINE AUTO NEGATIVE (NEGATIVE); BLOOD, URINE BLOOD NEGATIVE (NEGATIVE); COLOR, URINE YELLOW (YELLOW); GLUCOSE, URINE (UA) AUTO NEGATIVE (NEGATIVE); KETONE, URINE AUTO NEGATIVE (NEGATIVE); LEUKOCYTE ESTERASE, URINE AUTO 3+ (NEGATIVE); MUCUS, URINE SMALL (NEGATIVE); NITRITE, URINE AUTO NEGATIVE (NEGATIVE); PROTEIN, URINE AUTO NEGATIVE (NEGATIVE); RBC, URINE AUTO 3 /HPF (0-3); SQUAMOUS EPITHELIAL CELL UR AU 4 /HPF (0-6); UROBILINOGEN, URINE AUTO 0.2 mg/dL (0.0-2.0); WBC, URINE AUTO 180 /HPF (0-3)
[2021-09-06 16:35] LABS: INR 0.91; PROTHROMBIN TIME 12.7 SECONDS (12.7-14.5)
[2021-09-06 16:59] LABS: ALBUMIN 3.9 GM/DL (3.2-5.2); ALT/SGPT 17 U/L (12-78); BILIRUBIN,TOTAL 0.5 MG/DL (0.2-1.0); BLOOD UREA NITROGEN 22 MG/DL (7-18); CALCIUM LEVEL 10.5 MG/DL (8.8-10.2); CARBON DIOXIDE LEVEL 29 MEQ/L (21-32); CHLORIDE LEVEL 98 MEQ/L (98-107); CREATININE FOR GFR 0.85 MG/DL (0.55-1.30); GLOMERULAR FILTRATION RATE > 60.0 (>32); GLUCOSE, FASTING 95 MG/DL (70-100); POTASSIUM SERUM 4.9 MEQ/L (3.5-5.1); SODIUM LEVEL 135 MEQ/L (136-145)
== END ==
LOC: M ADAMS 11:42
PROVIDERS: ATTEND Specialist
DX: Z01.818 Encounter for other preprocedural examination (principal); I50.9 Heart failure, unspecified

== ENCOUNTER → 2021-09-11 | Outpatient (REF) | payer MEDICARE, OTHER | LOC: M LAB REF 12:05 | PROVIDERS: ATTEND Internal Medicine | DX: Z01.818 Encounter for other preprocedural examination (principal) ==

== ENCOUNTER → 2021-09-23 | Outpatient (CLI) | payer MEDICARE, OTHER | LOC: M LAB 12:36 | PROVIDERS: ATTEND Internal Medicine | DX: N39.0 Urinary tract infection, site not specified (principal) ==

== ENCOUNTER → 2021-11-17 | Outpatient (CLI) | payer MEDICARE, OTHER ==
[~2021-11-17] MED LIST changes: +INDA1.253 PO; -INDA125TA PO
[2021-11-17 12:48] LABS: BASO # 0.1 10^3/uL (0.0-0.2); BASO % 1.2 % (0.0-1.0); EOS # 0.6 10^3/uL (0.0-0.5); EOS % 7.4 % (0.0-3.0); LYMPH # 1.2 10^3/uL (1.5-5.0); LYMPH % 14.4 % (24.0-44.0); MEAN CORPUSCULAR HEMOGLOBIN 29.2 pg (27.0-33.0); MEAN CORPUSCULAR HGB CONC 31.6 g/dl (32.0-36.5); MEAN CORPUSCULAR VOLUME 92.5 fl (80.0-96.0); MONO # 0.6 10^3/uL (0.0-0.8); MONO % 6.8 % (2.0-8.0); NEUTROPHILS # 5.6 10^3/uL (1.5-8.5); PLATELET COUNT, AUTOMATED 484 10^3/uL (150-450); RED BLOOD COUNT 4.11 10^6/uL (4.00-5.40); WHITE BLOOD COUNT 8.1 10^3/uL (4.0-10.0)
[2021-11-17 13:09] LABS: BLOOD UREA NITROGEN 27 MG/DL (7-18); CALCIUM LEVEL 9.9 MG/DL (8.8-10.2); CARBON DIOXIDE LEVEL 29 MEQ/L (21-32); CHLORIDE LEVEL 100 MEQ/L (98-107); CREATININE FOR GFR 0.81 MG/DL (0.55-1.30); GLOMERULAR FILTRATION RATE > 60.0 (>32); GLUCOSE, FASTING 79 MG/DL (70-100); POTASSIUM SERUM 4.6 MEQ/L (3.5-5.1); SODIUM LEVEL 134 MEQ/L (136-145)
== END ==
LOC: M ADAMS 11:31
PROVIDERS: ATTEND Internal Medicine
DX: E78.00 Pure hypercholesterolemia, unspecified (principal); I10 Essential (primary) hypertension

== ENCOUNTER → 2021-12-22 | Outpatient (REF) | payer MEDICARE, OTHER ==
[2021-12-22 16:55] LABS: HEMATOCRIT 37.9 % (36.0-47.0); HEMOGLOBIN 11.9 g/dl (12.0-15.5); MEAN CORPUSCULAR HEMOGLOBIN 28.7 pg (27.0-33.0); MEAN CORPUSCULAR HGB CONC 31.4 g/dl (32.0-36.5); MEAN CORPUSCULAR VOLUME 91.3 fl (80.0-96.0); PLATELET COUNT, AUTOMATED 464 10^3/uL (150-450); RED BLOOD COUNT 4.15 10^6/uL (4.00-5.40); WHITE BLOOD COUNT 7.8 10^3/uL (4.0-10.0)
== END ==
LOC: M LABDRWAD 16:17
PROVIDERS: ATTEND Internal Medicine
DX: N18.30 Chronic kidney disease, stage 3 unspecified (principal); D64.9 Anemia, unspecified

== ENCOUNTER → 2022-02-12 | Outpatient (REF) | payer MEDICARE, OTHER | LOC: M LAB REF 10:10 | PROVIDERS: ATTEND Internal Medicine | DX: D61.818 Other pancytopenia (principal) ==

== ENCOUNTER → 2022-07-06 | Outpatient (CLI) | payer MEDICARE, BC, OTHER | LOC: M RAD 12:35 | PROVIDERS: ATTEND Internal Medicine | DX: I65.29 Occlusion and stenosis of unspecified carotid artery (principal) ==

== ENCOUNTER → 2023-09-27 | Outpatient (CLI) | payer MEDICARE, BC ==
[~2023-09-27] MED LIST changes: +TIMO0.5S20 OU; -TIMO0.5S29 OU
== END ==
LOC: M PLAIMG 14:52
PROVIDERS: ATTEND Internal Medicine
DX: M54.42 Lumbago with sciatica, left side (principal)

== ENCOUNTER → 2023-11-07 | Outpatient (CLI) | payer MEDICARE, BC | LOC: M PLAIMG 14:31 | PROVIDERS: ATTEND Internal Medicine | DX: M25.552 Pain in left hip (principal) ==

== ENCOUNTER → 2025-03-26 | Outpatient (CLI) | payer MEDICARE, BC ==
[~2025-03-26] MED LIST changes: -ADV250INH INH; +ADVA1AER9 INH
== END ==
LOC: M CARPUL 10:50
PROVIDERS: ATTEND Internal Medicine
DX: I35.1 Nonrheumatic aortic (valve) insufficiency (principal)